=== PATIENT | female | born 1945 | race African-American/Black ===

== ENCOUNTER → 2016-07-18 | Outpatient (REF) | payer MEDICARE ==
[2016-07-18 09:28] LABS: MEAN CORPUSCULAR HGB CONC 31.9 g/dl (32.0-36.5); MEAN CORPUSCULAR VOLUME 84.8 fl (80.0-96.0); RED CELL DISTRIBUTION WIDTH 15.7 % (11.5-14.5); WHITE BLOOD COUNT 4.6 K/mm3 (4.0-10.0)
[2016-07-18 10:29] LABS: ALBUMIN 3.3 GM/DL (3.2-5.2); ALBUMIN/GLOBULIN RATIO 0.72 (1.00-1.93); ALKALINE PHOSPHATASE 97 U/L (45-117); ALT/SGPT 23 U/L (12-78); ANION GAP 8 MEQ/L (8-16); AST/SGOT 16 U/L (15-37); BILIRUBIN,TOTAL 0.4 MG/DL (0.2-1.0); BLOOD UREA NITROGEN 16 MG/DL (7-18); CALCIUM LEVEL 8.9 MG/DL (8.8-10.2); CARBON DIOXIDE LEVEL 29 MEQ/L (21-32); CHLORIDE LEVEL 105 MEQ/L (98-107); CHOLESTEROL LEVEL 145 MG/DL (<200); CREATININE FOR GFR 0.98 MG/DL (0.55-1.02); GLOMERULAR FILTRATION RATE > 60.0 (>39); GLUCOSE, FASTING 84 MG/DL (83-110); POTASSIUM SERUM 3.5 MEQ/L (3.5-5.1); SODIUM LEVEL 142 MEQ/L (136-145); TOTAL PROTEIN 7.9 GM/DL (6.4-8.2); TRIGLYCERIDES LEVEL 126 MG/DL (<150)
== END ==
LOC: SKLAB5 08:53
PROVIDERS: ATTEND Family Medicine
DX: I67.9 Cerebrovascular disease, unspecified (principal); D64.9 Anemia, unspecified; N28.9 Disorder of kidney and ureter, unspecified

== ENCOUNTER → 2016-08-15 | Outpatient (REF) | payer MEDICARE ==
[2016-08-15 08:58] LABS: ALBUMIN/GLOBULIN RATIO 0.7 (1.00-1.93); BILIRUBIN,TOTAL 0.4 MG/DL (0.2-1.0); CALCIUM LEVEL 8.9 MG/DL (8.8-10.2); CREATININE FOR GFR 1.15 MG/DL (0.55-1.02); GLOMERULAR FILTRATION RATE 59.8 (>39); POTASSIUM SERUM 3.5 MEQ/L (3.5-5.1); TOTAL PROTEIN 7.3 GM/DL (6.4-8.2)
== END ==
LOC: SKLAB5 08:31
PROVIDERS: ATTEND Family Medicine
DX: G20 Parkinson's disease (principal); N28.9 Disorder of kidney and ureter, unspecified

== ENCOUNTER → 2016-08-19 | Outpatient (REF) | payer MEDICARE ==
--- NOTE | 2016-08-19 11:12 | REP ---
SOFT-TISSUE NECK X-RAY: 08/19/2016. Clinical history, evaluate for airway obstruction. AP and lateral views are provided. The two lateral views both show some mild prevertebral swelling anterior to C5 and C6. There are anterior osteophytes from C3-4 through C5-6. The oropharynx, hypopharynx, larynx and subglottic trachea have normal caliber with slight displacement of the airway anteriorly by soft tissue swelling but no stenosis. Impression: 1. Some prevertebral swelling noted anterior to C5 and C6. The airway from the oropharynx through the subglottic trachea is grossly patent, however. Consider CT soft tissue neck with contrast. Signed by Marito Rhodes MD 08/19/2016 04:21 P
== END | disposition home or self-care (01) ==
LOC: SKLAB5 08:00
PROVIDERS: ATTEND Family Medicine
DX: M25.78 Osteophyte, vertebrae (principal); R22.1 Localized swelling, mass and lump, neck

== ENCOUNTER → 2016-08-22 | Outpatient (REF) | payer MEDICARE ==
[2016-08-22 08:35] LABS: MEAN CORPUSCULAR HEMOGLOBIN 27.4 pg (27.0-33.0); MEAN CORPUSCULAR HGB CONC 32.2 g/dl (32.0-36.5); MEAN CORPUSCULAR VOLUME 85.1 fl (80.0-96.0); RED CELL DISTRIBUTION WIDTH 15.3 % (11.5-14.5); WHITE BLOOD COUNT 3.7 K/mm3 (4.0-10.0)
[2016-08-22 08:53] LABS: ANION GAP 8 MEQ/L (8-16); BLOOD UREA NITROGEN 17 MG/DL (7-18); CARBON DIOXIDE LEVEL 30 MEQ/L (21-32); CHLORIDE LEVEL 105 MEQ/L (98-107); CREATININE FOR GFR 1.07 MG/DL (0.55-1.02); GLOMERULAR FILTRATION RATE > 60.0 (>39); GLUCOSE, FASTING 88 MG/DL (83-110); POTASSIUM SERUM 3.7 MEQ/L (3.5-5.1); SODIUM LEVEL 143 MEQ/L (136-145)
== END | disposition home or self-care (01) ==
LOC: SKLAB5 08:00
PROVIDERS: ATTEND Family Medicine
DX: I12.9 Hypertensive chronic kidney disease with stage 1 through stage 4 chronic kidney disease, or unspecified chronic kidney disease (principal); G20 Parkinson's disease; N18.2 Chronic kidney disease, stage 2 (mild)

== ENCOUNTER → 2016-09-12 | Outpatient (REF) | payer MEDICARE ==
[2016-09-12 10:05] LABS: ANION GAP 8 MEQ/L (8-16); BLOOD UREA NITROGEN 20 MG/DL (7-18); CALCIUM LEVEL 8.8 MG/DL (8.8-10.2); CARBON DIOXIDE LEVEL 27 MEQ/L (21-32); CHLORIDE LEVEL 105 MEQ/L (98-107); CREATININE FOR GFR 0.91 MG/DL (0.55-1.02); GLOMERULAR FILTRATION RATE > 60.0 (>39); GLUCOSE, FASTING 107 MG/DL (83-110); POTASSIUM SERUM 3.9 MEQ/L (3.5-5.1); SODIUM LEVEL 140 MEQ/L (136-145)
== END ==
LOC: SKLAB5 07:40
PROVIDERS: ATTEND Family Medicine
DX: I10 Essential (primary) hypertension (principal); G20 Parkinson's disease

== ENCOUNTER → 2016-10-15 | Outpatient (REF) | payer MEDICARE ==
[2016-10-15 09:06] LABS: ANION GAP 7 MEQ/L (8-16); BLOOD UREA NITROGEN 15 MG/DL (7-18); CALCIUM LEVEL 8.8 MG/DL (8.8-10.2); CARBON DIOXIDE LEVEL 29 MEQ/L (21-32); CHLORIDE LEVEL 106 MEQ/L (98-107); CREATININE FOR GFR 0.91 MG/DL (0.55-1.02); GLOMERULAR FILTRATION RATE > 60.0 (>39); GLUCOSE, FASTING 89 MG/DL (83-110); POTASSIUM SERUM 3.6 MEQ/L (3.5-5.1); SODIUM LEVEL 142 MEQ/L (136-145)
== END ==
LOC: SKLAB5 09:23
PROVIDERS: ATTEND Family Medicine
DX: G20 Parkinson's disease (principal)

== ENCOUNTER → 2016-11-14 | Outpatient (REF) | payer MEDICARE ==
[2016-11-14 10:27] LABS: ANION GAP 11 MEQ/L (8-16); BLOOD UREA NITROGEN 13 MG/DL (7-18); CALCIUM LEVEL 9.1 MG/DL (8.8-10.2); CARBON DIOXIDE LEVEL 26 MEQ/L (21-32); CHLORIDE LEVEL 106 MEQ/L (98-107); CREATININE FOR GFR 0.94 MG/DL (0.55-1.02); GLOMERULAR FILTRATION RATE > 60.0 (>39); GLUCOSE, FASTING 95 MG/DL (83-110); SODIUM LEVEL 143 MEQ/L (136-145)
== END ==
LOC: SKLAB5 07:16
PROVIDERS: ATTEND Family Medicine
DX: G20 Parkinson's disease (principal); N28.9 Disorder of kidney and ureter, unspecified

== ENCOUNTER → 2016-12-12 | Outpatient (REF) | payer MEDICARE ==
[2016-12-12 10:36] LABS: ANION GAP 7 MEQ/L (8-16); BLOOD UREA NITROGEN 16 MG/DL (7-18); CALCIUM LEVEL 8.7 MG/DL (8.8-10.2); CARBON DIOXIDE LEVEL 29 MEQ/L (21-32); CHLORIDE LEVEL 105 MEQ/L (98-107); CREATININE FOR GFR 1.03 MG/DL (0.55-1.02); GLOMERULAR FILTRATION RATE > 60.0 (>39); GLUCOSE, FASTING 108 MG/DL (83-110); POTASSIUM SERUM 3.5 MEQ/L (3.5-5.1); SODIUM LEVEL 141 MEQ/L (136-145)
== END ==
LOC: SKLAB5 07:32
PROVIDERS: ATTEND Family Medicine
DX: I10 Essential (primary) hypertension (principal); G20 Parkinson's disease

== ENCOUNTER → 2016-12-19 | Outpatient (REF) | payer MEDICARE | LOC: SKLAB5 07:53 | PROVIDERS: ATTEND Family Medicine | DX: Z12.11 Encounter for screening for malignant neoplasm of colon (principal); I10 Essential (primary) hypertension; Z79.899 Other long term (current) drug therapy ==

== ENCOUNTER → 2017-01-16 | Outpatient (REF) | payer MEDICARE ==
[2017-01-16 10:07] LABS: MEAN CORPUSCULAR HEMOGLOBIN 27.7 pg (27.0-33.0); MEAN CORPUSCULAR HGB CONC 32.4 g/dl (32.0-36.5); MEAN CORPUSCULAR VOLUME 85.6 fl (80.0-96.0); RED CELL DISTRIBUTION WIDTH 15.3 % (11.5-14.5); WHITE BLOOD COUNT 4.2 K/mm3 (4.0-10.0)
== END ==
LOC: SKLAB5 08:26
PROVIDERS: ATTEND Family Medicine
DX: N28.9 Disorder of kidney and ureter, unspecified (principal); E03.9 Hypothyroidism, unspecified; G20 Parkinson's disease

== ENCOUNTER → 2017-02-13 | Outpatient (REF) | payer MEDICARE ==
[2017-02-13 09:04] LABS: ANION GAP 10 MEQ/L (8-16); BLOOD UREA NITROGEN 16 MG/DL (7-18); CALCIUM LEVEL 9.1 MG/DL (8.8-10.2); CARBON DIOXIDE LEVEL 27 MEQ/L (21-32); CHLORIDE LEVEL 107 MEQ/L (98-107); CREATININE FOR GFR 0.87 MG/DL (0.55-1.02); GLOMERULAR FILTRATION RATE > 60.0 (>39); GLUCOSE, FASTING 75 MG/DL (83-110); POTASSIUM SERUM 3.7 MEQ/L (3.5-5.1); SODIUM LEVEL 144 MEQ/L (136-145)
== END ==
LOC: SKLAB5 08:49
PROVIDERS: ATTEND Family Medicine
DX: G20 Parkinson's disease (principal); I10 Essential (primary) hypertension; N28.9 Disorder of kidney and ureter, unspecified

== ENCOUNTER → 2017-04-17 | Outpatient (REF) | payer MEDICARE | LOC: SKLAB5 08:47 | PROVIDERS: ATTEND Family Medicine | DX: E03.9 Hypothyroidism, unspecified (principal) ==

== ENCOUNTER → 2017-07-17 | Outpatient (REF) | payer MEDICARE ==
[2017-07-17 09:06] LABS: HEMATOCRIT 39.3 % (36.0-47.0); HEMOGLOBIN 12.6 g/dl (12.0-16.0); MEAN CORPUSCULAR HEMOGLOBIN 27.5 pg (27.0-33.0); MEAN CORPUSCULAR HGB CONC 32.1 g/dl (32.0-36.5); MEAN CORPUSCULAR VOLUME 85.8 fl (80.0-96.0); PLATELET COUNT, AUTOMATED 212 10^3/uL (150-450); RED BLOOD COUNT 4.58 10^6/uL (4.00-5.40); RED CELL DISTRIBUTION WIDTH 14.8 % (11.5-14.5); WHITE BLOOD COUNT 4.7 10^3/uL (4.0-10.0)
== END ==
LOC: SKLAB5 07:55
DX: D64.9 Anemia, unspecified (principal); E03.9 Hypothyroidism, unspecified
CPT/HCPCS: 84443

== ENCOUNTER → 2017-08-14 | Outpatient (REF) | payer MEDICARE ==
[2017-08-14 09:03] LABS: ANION GAP 8 MEQ/L (8-16); BLOOD UREA NITROGEN 18 MG/DL (7-18); CALCIUM LEVEL 8.6 MG/DL (8.8-10.2); CARBON DIOXIDE LEVEL 27 MEQ/L (21-32); CHLORIDE LEVEL 109 MEQ/L (98-107); CREATININE FOR GFR 0.86 MG/DL (0.55-1.30); GLOMERULAR FILTRATION RATE > 60.0 (>39); GLUCOSE, FASTING 80 MG/DL (70-100); POTASSIUM SERUM 3.7 MEQ/L (3.5-5.1); SODIUM LEVEL 144 MEQ/L (136-145)
== END ==
LOC: SKLAB5 07:51
DX: N18.9 Chronic kidney disease, unspecified (principal)
CPT/HCPCS: 36415

== ENCOUNTER → 2017-10-16 | Outpatient (REF) | payer MEDICARE | LOC: SKLAB5 07:38 | DX: E03.9 Hypothyroidism, unspecified (principal) | CPT/HCPCS: 84443 ==

== ENCOUNTER → 2017-11-13 | Outpatient (REF) | payer MEDICARE ==
[2017-11-13 08:11] LABS: ANION GAP 8 MEQ/L (8-16); BLOOD UREA NITROGEN 19 MG/DL (7-18); CALCIUM LEVEL 8.6 MG/DL (8.8-10.2); CARBON DIOXIDE LEVEL 24 MEQ/L (21-32); CHLORIDE LEVEL 110 MEQ/L (98-107); CREATININE FOR GFR 0.92 MG/DL (0.55-1.30); GLOMERULAR FILTRATION RATE > 60.0 (>39); GLUCOSE, FASTING 78 MG/DL (70-100); POTASSIUM SERUM 3.9 MEQ/L (3.5-5.1); SODIUM LEVEL 142 MEQ/L (136-145)
== END ==
LOC: SKLAB5 10:30
DX: G20 Parkinson's disease (principal); N18.9 Chronic kidney disease, unspecified
CPT/HCPCS: 80048

== ENCOUNTER → 2018-01-15 | Outpatient (REF) | payer MEDICARE ==
[2018-01-15 13:57] LABS: HEMATOCRIT 38.7 % (36.0-47.0); MEAN CORPUSCULAR HEMOGLOBIN 28.2 pg (27.0-33.0); MEAN CORPUSCULAR HGB CONC 33.6 g/dl (32.0-36.5); MEAN CORPUSCULAR VOLUME 83.9 fl (80.0-96.0); PLATELET COUNT, AUTOMATED 216 10^3/uL (150-450); RED BLOOD COUNT 4.61 10^6/uL (4.00-5.40); RED CELL DISTRIBUTION WIDTH 14.9 % (11.5-14.5); WHITE BLOOD COUNT 4.6 10^3/uL (4.0-10.0)
== END ==
LOC: SKLAB5 07:25
DX: E03.9 Hypothyroidism, unspecified (principal)
CPT/HCPCS: 84443

== ENCOUNTER → 2018-02-12 | Outpatient (REF) | payer MEDICARE ==
[2018-02-12 09:36] LABS: ANION GAP 7 MEQ/L (8-16); BLOOD UREA NITROGEN 18 MG/DL (7-18); CALCIUM LEVEL 8.7 MG/DL (8.8-10.2); CARBON DIOXIDE LEVEL 27 MEQ/L (21-32); CHLORIDE LEVEL 110 MEQ/L (98-107); CREATININE FOR GFR 0.87 MG/DL (0.55-1.30); GLOMERULAR FILTRATION RATE > 60.0 (>39); GLUCOSE, FASTING 69 MG/DL (70-100); POTASSIUM SERUM 4.2 MEQ/L (3.5-5.1); SODIUM LEVEL 144 MEQ/L (136-145)
== END ==
LOC: SKLAB5 09:33
DX: N18.9 Chronic kidney disease, unspecified (principal); G20 Parkinson's disease
CPT/HCPCS: 36415

== ENCOUNTER → 2018-04-16 | Outpatient (REF) | payer MEDICARE | LOC: SKLAB5 08:15 | DX: E03.9 Hypothyroidism, unspecified (principal) | CPT/HCPCS: 84443 ==

== ENCOUNTER → 2018-05-14 | Outpatient (REF) | payer MEDICARE ==
[2018-05-14 08:46] LABS: ANION GAP 7 MEQ/L (8-16); BLOOD UREA NITROGEN 19 MG/DL (7-18); CALCIUM LEVEL 8.7 MG/DL (8.8-10.2); CARBON DIOXIDE LEVEL 28 MEQ/L (21-32); CHLORIDE LEVEL 108 MEQ/L (98-107); CREATININE FOR GFR 0.83 MG/DL (0.55-1.30); GLOMERULAR FILTRATION RATE > 60.0 (>39); GLUCOSE, FASTING 77 MG/DL (70-100); POTASSIUM SERUM 3.8 MEQ/L (3.5-5.1); SODIUM LEVEL 143 MEQ/L (136-145)
== END ==
LOC: SKLAB5 07:45
DX: N18.9 Chronic kidney disease, unspecified (principal); G20 Parkinson's disease
CPT/HCPCS: 80048

== ENCOUNTER → 2018-07-16 | Outpatient (REF) | payer MEDICARE ==
[2018-07-16 08:30] LABS: HEMATOCRIT 38.7 % (36.0-47.0); HEMOGLOBIN 12.5 g/dl (12.0-15.5); MEAN CORPUSCULAR HEMOGLOBIN 27.8 pg (27.0-33.0); MEAN CORPUSCULAR HGB CONC 32.3 g/dl (32.0-36.5); PLATELET COUNT, AUTOMATED 174 10^3/uL (150-450); WHITE BLOOD COUNT 4.6 10^3/uL (4.0-10.0)
== END ==
LOC: SKLAB5 08:07
PROVIDERS: ATTEND Family Medicine
DX: E03.9 Hypothyroidism, unspecified (principal); N18.9 Chronic kidney disease, unspecified

== ENCOUNTER → 2018-07-29 | Outpatient (REF) | payer MEDICARE ==
[2018-07-29 13:00] LABS: HEMATOCRIT 43.2 % (36.0-47.0); HEMOGLOBIN 13.3 g/dl (12.0-15.5); MEAN CORPUSCULAR HEMOGLOBIN 27.3 pg (27.0-33.0); MEAN CORPUSCULAR HGB CONC 30.8 g/dl (32.0-36.5); MEAN CORPUSCULAR VOLUME 88.5 fl (80.0-96.0); PLATELET COUNT, AUTOMATED 388 10^3/uL (150-450); RED BLOOD COUNT 4.88 10^6/uL (4.00-5.40); WHITE BLOOD COUNT 11.9 10^3/uL (4.0-10.0)
[2018-07-29 13:16] LABS: INFLUENZA A AMPLIFICATION NEGATIVE (NEGATIVE); INFLUENZA B AMPLIFICATION NEGATIVE (NEGATIVE)
[2018-07-29 13:56] LABS: ALBUMIN 2.7 GM/DL (3.2-5.2); BILIRUBIN,TOTAL 0.8 MG/DL (0.2-1.0); CALCIUM LEVEL 9.4 MG/DL (8.8-10.2); CREATININE FOR GFR 1.19 MG/DL (0.55-1.30); GLOMERULAR FILTRATION RATE 57.2 (>39); POTASSIUM SERUM 3.7 MEQ/L (3.5-5.1); TOTAL PROTEIN 8.1 GM/DL (6.4-8.2)
== END ==
LOC: SKLAB5 11:56
PROVIDERS: ATTEND Family Medicine
DX: R53.83 Other fatigue (principal)

== ENCOUNTER → 2018-07-30 | Outpatient (REF) | payer MEDICARE ==
[2018-07-30 09:12] LABS: BLOOD UREA NITROGEN 50 MG/DL (7-18); CALCIUM LEVEL 8.9 MG/DL (8.8-10.2); CARBON DIOXIDE LEVEL 30 MEQ/L (21-32); CHLORIDE LEVEL 122 MEQ/L (98-107); CREATININE FOR GFR 1.07 MG/DL (0.55-1.30); GLOMERULAR FILTRATION RATE > 60.0 (>39); GLUCOSE, FASTING 171 MG/DL (70-100); POTASSIUM SERUM 3.5 MEQ/L (3.5-5.1); SODIUM LEVEL 159 MEQ/L (136-145)
== END ==
LOC: SKLAB5 09:29
PROVIDERS: ATTEND Family Medicine
DX: E86.0 Dehydration (principal)

== ENCOUNTER → 2018-07-31 | Outpatient (REF) | payer MEDICARE ==
[2018-07-31 07:40] LABS: HEMATOCRIT 36.8 % (36.0-47.0); MEAN CORPUSCULAR HEMOGLOBIN 27.4 pg (27.0-33.0); MEAN CORPUSCULAR HGB CONC 30.7 g/dl (32.0-36.5); MEAN CORPUSCULAR VOLUME 89.1 fl (80.0-96.0); PLATELET COUNT, AUTOMATED 285 10^3/uL (150-450); RED BLOOD COUNT 4.13 10^6/uL (4.00-5.40); WHITE BLOOD COUNT 10.1 10^3/uL (4.0-10.0)
[2018-07-31 07:59] LABS: HEMOGLOBIN 11.3 g/dl (12.0-15.5)
[2018-07-31 08:52] LABS: BLOOD UREA NITROGEN 41 MG/DL (7-18); CALCIUM LEVEL 8.8 MG/DL (8.8-10.2); CARBON DIOXIDE LEVEL 29 MEQ/L (21-32); CHLORIDE LEVEL 116 MEQ/L (98-107); CREATININE FOR GFR 0.98 MG/DL (0.55-1.30); GLOMERULAR FILTRATION RATE > 60.0 (>39); GLUCOSE, FASTING 179 MG/DL (70-100); POTASSIUM SERUM 3.3 MEQ/L (3.5-5.1); SODIUM LEVEL 152 MEQ/L (136-145)
== END ==
LOC: SKLAB5 08:36
PROVIDERS: ATTEND Family Medicine
DX: E86.0 Dehydration (principal)

== ENCOUNTER → 2018-08-01 | Outpatient (REF) | payer MEDICARE ==
[2018-08-01 07:39] LABS: BLOOD UREA NITROGEN 30 MG/DL (7-18); CALCIUM LEVEL 7.8 MG/DL (8.8-10.2); CARBON DIOXIDE LEVEL 30 MEQ/L (21-32); CHLORIDE LEVEL 110 MEQ/L (98-107); CREATININE FOR GFR 0.79 MG/DL (0.55-1.30); GLOMERULAR FILTRATION RATE > 60.0 (>39); GLUCOSE, FASTING 153 MG/DL (70-100); POTASSIUM SERUM 3.4 MEQ/L (3.5-5.1); SODIUM LEVEL 146 MEQ/L (136-145)
== END ==
LOC: SKLAB5 07:38
PROVIDERS: ATTEND Family Medicine
DX: E86.0 Dehydration (principal)

== ENCOUNTER → 2018-08-04 | Outpatient (REF) | payer MEDICARE ==
[2018-08-04 07:38] LABS: HEMATOCRIT 30.5 % (36.0-47.0); HEMOGLOBIN 9.7 g/dl (12.0-15.5); MEAN CORPUSCULAR HEMOGLOBIN 27.5 pg (27.0-33.0); MEAN CORPUSCULAR HGB CONC 31.8 g/dl (32.0-36.5); MEAN CORPUSCULAR VOLUME 86.4 fl (80.0-96.0); PLATELET COUNT, AUTOMATED 264 10^3/uL (150-450); RED BLOOD COUNT 3.53 10^6/uL (4.00-5.40); WHITE BLOOD COUNT 5.8 10^3/uL (4.0-10.0)
[2018-08-04 07:55] LABS: ALBUMIN 1.8 GM/DL (3.2-5.2); ALT/SGPT 62 U/L (12-78); BILIRUBIN,TOTAL 0.5 MG/DL (0.2-1.0); BLOOD UREA NITROGEN 15 MG/DL (7-18); CALCIUM LEVEL 7.6 MG/DL (8.8-10.2); CARBON DIOXIDE LEVEL 29 MEQ/L (21-32); CHLORIDE LEVEL 103 MEQ/L (98-107); CREATININE FOR GFR 0.74 MG/DL (0.55-1.30); GLOMERULAR FILTRATION RATE > 60.0 (>39); GLUCOSE, FASTING 133 MG/DL (70-100); POTASSIUM SERUM 3.7 MEQ/L (3.5-5.1); SODIUM LEVEL 139 MEQ/L (136-145); TOTAL PROTEIN 5.9 GM/DL (6.4-8.2)
== END ==
LOC: SKLAB5 07:26
PROVIDERS: ATTEND Family Medicine
DX: E86.0 Dehydration (principal)

== ENCOUNTER → 2018-08-10 | Outpatient (REF) | payer MEDICARE ==
[~2018-08-10] MED LIST: ACET160S3 GT; ACET1TAB55 PO; ALTA1CAP PEG; ASPI1TAB PO; ASPI1TAB15 PO; CHIL81CH2 PEG; CRES10TA32 PEG; DULC10SU2 PR; ENSULIQ64 PO; FLEEENE4 PR; GUAI1SYP8 PO; LEVO125T4 PEG; METO10ELUD PEG; METO10VL IV; MILK120011 PO; MIRA3350 PO; MIRT30TA3 PO; REFR0.5D8 OU; SENN8.6T7 PO; SYNT125T PO; TYLE325T5 PO
[2018-08-10 08:03] LABS: ALBUMIN 2.1 GM/DL (3.2-5.2); ALT/SGPT 26 U/L (12-78); BILIRUBIN,TOTAL 0.4 MG/DL (0.2-1.0); BLOOD UREA NITROGEN 22 MG/DL (7-18); CALCIUM LEVEL 8.5 MG/DL (8.8-10.2); CARBON DIOXIDE LEVEL 26 MEQ/L (21-32); CHLORIDE LEVEL 110 MEQ/L (98-107); CREATININE FOR GFR 0.68 MG/DL (0.55-1.30); GLOMERULAR FILTRATION RATE > 60.0 (>39); GLUCOSE, FASTING 81 MG/DL (70-100); POTASSIUM SERUM 4.1 MEQ/L (3.5-5.1); SODIUM LEVEL 146 MEQ/L (136-145); TOTAL PROTEIN 6.9 GM/DL (6.4-8.2)
== END ==
LOC: EDBD → SKLAB5 08:00
PROVIDERS: ATTEND Family Medicine
DX: E87.0 Hyperosmolality and hypernatremia (principal)

== ENCOUNTER 2018-08-18 19:11 | Inpatient (IN) | payer MEDICARE ==
[~2018-08-18] VITALS: Ht 165.1 cm; Wt 65.3 kg
[2018-08-18] MEDS ORDERED: NS 1,000 ML IV ONE (19:30)
[2018-08-18 20:21] LABS: VENOUS BASE EXCESS -2.2 (-2.0-2.0); VENOUS O2 SATURATION 95.6 % (60.0-80.0); VENOUS PARTIAL PRESSURE CO2 31.5 mmHg (38.0-50.0); VENOUS PARTIAL PRESSURE O2 81.8 mmHg (30.0-50.0); VENOUS PH 7.441 UNITS (7.330-7.430); VENOUS STANDARD HCO3 22.6 MEQ/L; VENOUS TOTAL CO2 21.9 MEQ/L (24.0-28.0)
[2018-08-18 20:24] LABS: BASO % 0.2 % (0.0-1.0); EOS % 0.2 % (0.0-3.0); HEMATOCRIT 42.5 % (36.0-47.0); HEMOGLOBIN 12.3 g/dl (12.0-15.5); LYMPH # 2.6 10^3/uL (1.5-4.5); LYMPH % 20.6 % (24.0-44.0); MEAN CORPUSCULAR HEMOGLOBIN 26.5 pg (27.0-33.0); MEAN CORPUSCULAR HGB CONC 28.9 g/dl (32.0-36.5); MEAN CORPUSCULAR VOLUME 91.6 fl (80.0-96.0); MONO # 0.8 10^3/uL (0.0-0.8); MONO % 6.1 % (0.0-5.0); NEUTROPHILS # 9.3 10^3/uL (1.8-7.7); NEUTROPHILS % 72.4 % (36.0-66.0); PLATELET COUNT, AUTOMATED 328 10^3/uL (150-450); RED BLOOD COUNT 4.64 10^6/uL (4.00-5.40); WHITE BLOOD COUNT 12.8 10^3/uL (4.0-10.0)
--- NOTE | 2018-08-18 20:57 | REPVR ---
EXAM: CT Head Without Contrast EXAM DATE/TIME: 08/18/2018 8:39 PM CLINICAL HISTORY: 73 years old, female; Signs and symptoms; Altered mental status/memory loss TECHNIQUE: Axial computed tomography images of the head/brain without contrast. All CT scans at this facility use at least one of these dose optimization techniques: automated exposure control; mA and/or kV adjustment per patient size (includes targeted exams where dose is matched to clinical indication); or iterative reconstruction. COMPARISON: No relevant prior studies available. FINDINGS: Brain: There is mild to moderate age related parenchymal volume loss. White matter changes are demonstrated in the subcortical, centrum semiovale and periventricular white matter consistent with small vessel white matter angiopathic gliosis. Ventricles: Normal. No ventriculomegaly. Bones/joints: Unremarkable. No acute fracture. Sinuses: Visualized sinuses are unremarkable. No acute sinusitis. Mastoid air cells: Visualized mastoid air cells are unremarkable. No mastoid effusion. Soft tissues: Unremarkable. Vasculature: Calcified intracranial carotid arteries. IMPRESSION: There is mild to moderate age related parenchymal volume loss. White matter changes are demonstrated in the subcortical, centrum semiovale and periventricular white matter consistent with small vessel white matter angiopathic gliosis. No acute findings. Electronically signed by: Arron Herman On 08/18/2018 20:56:43 PM
[2018-08-18 22:30] LABS: ALBUMIN 1.8 GM/DL (3.2-5.2); ALT/SGPT 24 U/L (12-78); BILIRUBIN,DIRECT 0.3 MG/DL (0.0-0.2); BILIRUBIN,TOTAL 0.7 MG/DL (0.2-1.0); BLOOD UREA NITROGEN 64 MG/DL (7-18); CARBON DIOXIDE LEVEL 25 MEQ/L (21-32); CHLORIDE LEVEL 132 MEQ/L (98-107); CPK CREATINE PHOSPHOKINASE 78 U/L (26-192); CREATININE FOR GFR 1.08 MG/DL (0.55-1.30); GLOMERULAR FILTRATION RATE > 60.0 (>39); GLUCOSE, FASTING 123 MG/DL (70-100); MB/CK RELATIVE INDEX 2.05 (< OR =4); POTASSIUM SERUM 3.3 MEQ/L (3.5-5.1); SODIUM LEVEL 167 MEQ/L (136-145); THYROID STIMULATING HORMONE 0.981 uIU/ML (0.358-3.740); TOTAL PROTEIN 6.7 GM/DL (6.4-8.2); TROPONIN I < 0.02 NG/ML (< 0.10)
[2018-08-18] MEDS ORDERED: D5W 1,000 ML IV SCH (22:45)
[2018-08-18] MEDS ORDERED: ASPI1TAB PO (23:41)
[2018-08-18] MEDS ORDERED: ENSULIQ64 PO (23:41)
[2018-08-18] MEDS ORDERED: MIRT30TA3 PO (23:41)
[2018-08-18] MEDS ORDERED: SYNT125T PO (23:54)
[2018-08-18] MEDS ORDERED: ACET1TAB55 PO (23:54)
[2018-08-18] MEDS ORDERED: MILK120011 PO (23:54)
[2018-08-18] MEDS ORDERED: SENN8.6T7 PO (23:54)
[2018-08-18] MEDS ORDERED: MIRA3350 PO (23:54)
[2018-08-18] MEDS ORDERED: REFR0.5D8 OU (23:54)
[2018-08-18] MEDS ORDERED: TYLE325T5 PO (23:54)
[2018-08-18] MEDS ORDERED: GUAI1SYP8 PO (23:54)
[2018-08-18] MEDS ORDERED: DULC10SU2 PR (23:54)
[2018-08-18] MEDS ORDERED: ASPI1TAB15 PO (23:54)
[2018-08-18] MEDS ORDERED: FLEEENE4 PR (23:54)
[2018-08-19 02:22] VITALS: BP 144/86
--- NOTE | 2018-08-19 03:03 | HPEPDOC ---
[facility] Medical History & Physical Date of Admission Aug 18, 2018 Primary Care Physician: A Other Provider Dictating/admitting: Elaine Eason M.D. Attending Physician: Thor Bolden M.D. History and Physical CHIEF COMPLAINT: Change in mental status HISTORY OF PRESENT ILLNESS: Patient is a 73-year-old woman with medical history significant for episodes of hypernatremia, CVA with residual left hemiparesis and cognitive disorders, depression, hypertension, hypothyroidism, hyperlipidemia. [facility] History is as recounted by ER physician. She is a patient of [facility] and had been noted to have progressive poor appetite and weight loss. However, she appeared more lethargic than usual today and was brought to the emergency room. At time of interview. No family members were available. She was worked up with a CT brain which was consistent with age related findings. No acute finding. Her lab consistent with hyponatremia with a sodium of 167. Patient was started on D5 water, hospitalist was called in for further evaluation and to admit patient for continued care. PAST MEDICAL HISTORY: PAST SURGICAL HISTORY: Could not obtain. Patient poor historian. SOCIAL HISTORY: Could not obtain FAMILY HISTORY: Could not obtain ALLERGIES: Please see below. REVIEW OF SYSTEMS: Unobtainable HOME MEDICATIONS: Please see below. PHYSICAL EXAMINATION: VITAL SIGNS: Temperature 96.8, pulse 86, respiratory rate 17, blood pressure 144/86, pulse oximetry 100 % on room air. GENERAL APPEARANCE: Elderly woman, unresponsive in bed with occasional eye opening, not in any apparent distress. She is not pale, anicteric and afebrile HEENT: Atraumatic. Neck: Supple. LUNGS: Clear to auscultation bilaterally. CARDIOVASCULAR: S1 and 2 heard, no murmurs, rubs or gallops. ABDOMEN: Obese, soft, not tender, not distended. Bowel sounds normoactive. MUSCULOSKELETAL: Apparently within normal limits. EXTREMITIES: No pedal edema, 2+ bilateral pedal pulses noted. NEUROLOGICAL: unresponsive in bed with occasional eye opening. Does not follow commands. PSYCHIATRIC: Not evaluated LABORATORY DATA: See below. IMAGING: Chest x-ray: No acute cardiopulmonary process CT brain: There is mild to moderate age-related parenchymal volume loss. White matter changes are demonstrated in the subcortical centrum semiovale and periventricular white matter consistent with small vessel white matter angiopathic gliosis. No acute findings. MICROBIOLOGY: Please see below. ASSESSMENT: 73-year-old woman with above-mentioned comorbid history with progressively worsening lethargy. Exam reveals an unresponsive patient. Labs significant for elevated sodium 167 mg per DL. DIAGNOSES: 1. Metabolic encephalopathy, likely secondary to hyponatremia. 2. Hyponatremia. . PLAN: 1. I will admit patient to the PCU under care of Dr. Thor Bolden. 2. Continue IV fluid to D5 water. Follow chemistry in the morning. 3. Day team should consider PEG tube/J-tube for further nutritional needs 4. Patient is nothing by mouth for now until she can tolerate by mouth. 5. DVT prophylaxis, TEDs and sequentials. 6. As soon as patient is able to tolerate by mouth she may restart all resume outpatient medications. 7. GI prophylaxis. Pantoprazole IV. 8. Further management will be per patient's clinical course. Vital Signs Vital Signs Date Time Temp Pulse Resp B/P (MAP) Pulse Ox O2 Delivery O2 Flow Rate FiO2 08/18/18 21:56 98.1 87 16 99 Room Air 08/18/18 21:26 144/97 (113) Laboratory Data Labs 24H Laboratory Tests 2 08/18/18 20:13: Immature Granulocyte % (Auto) 0.5, White Blood Count 12.8H, Red Blood Count 4.64, Hemoglobin 12.3, Hematocrit 42.5, Mean Corpuscular Volume 91.6, Mean Corpuscular Hemoglobin 26.5L, Mean Corpuscular Hemoglobin Concent 28.9L, Red Cell Distribution Width 17.8H, Platelet Count 328, Neutrophils (%) (Auto) 72.4H, Lymphocytes (%) (Auto) 20.6L, Monocytes (%) (Auto) 6.1H, Eosinophils (%) (Auto) 0.2, Basophils (%) (Auto) 0.2, Neutrophils # (Auto) 9.3H, Lymphocytes # (Auto) 2.6, Monocytes # (Auto) 0.8, Eosinophils # (Auto) 0.0, Basophils # (Auto) 0.0, Nucleated Red Blood Cells % (auto) 0.5H, Urine Color RINKU, Urine Appearance HAZY, Urine pH 5.0, Urine Specific [place] 1.030, Urine Protein 2+H, Urine Glucose (UA) NEGATIVE, Urine Ketones TRACEH, Urine Blood NEGATIVE, Urine Nitrite NEGATIVE, Urine Bilirubin 1+H, Urine Urobilinogen 4.0H, Urine Leukocyte Esterase NEGATIVE, Urine WBC (Auto) 1, Urine RBC (Auto) 1, Urine Hyaline Casts (Auto) 0, Urine Bacteria (Auto) NEGATIVE, Urine Squamous Epithelial Cells 0, Urine Mucus (Auto) SMALL, Urine Sperm (Auto) , Blood Gas Bicarbonate Standard 22.6, Venous Blood pH 7.441H, Venous Blood Partial Pressure CO2 31.5L, Venous Blood Partial Pressure O2 81.8H, Venous Blood Total Carbon Dioxide 21.9L, Venous Blood HCO3 21.0L, Venous Blood Oxygen Saturation 95.6H, Venous Blood Base Excess -2.2L, Lactic Acid Level 1.7 08/18/18 21:27: Anion Gap 10, Glomerular Filtration Rate > 60.0, Calcium Level 8.0L, Aspartate Amino Transf (AST/SGOT) 25, Alanine Aminotransferase (ALT/SGPT) 24, Alkaline Phosphatase 118H, Total Bilirubin 0.7, Direct Bilirubin 0.3H, Ammonia 13, Total Creatine Kinase 78, Creatine Kinase MB 2.0, Creatine Kinase MB Relative Index 2.05, Troponin I < 0.02, Total Protein 6.7, Albumin 1.8L, Albumin/Globulin Ratio 0.37L, Thyroid Stimulating Hormone (TSH) 0.981 CBC/BMP Laboratory Tests 08/18/18 20:13 Red Blood Count 4.64, Mean Corpuscular Volume 91.6, Mean Corpuscular Hemoglobin 26.5 L, Mean Corpuscular Hemoglobin Concent 28.9 L, Red Cell Distribution Width 17.8 H, Neutrophils (%) (Auto) 72.4 H, Lymphocytes (%) (Auto) 20.6 L, Monocytes (%) (Auto) 6.1 H, Eosinophils (%) (Auto) 0.2, Basophils (%) (Auto) 0.2, Neutrophils # (Auto) 9.3 H, Lymphocytes # (Auto) 2.6, Monocytes # (Auto) 0.8, Eosinophils # (Auto) 0.0, Basophils # (Auto) 0.0 08/18/18 21:27 Microbiology Microbiology 08/18/18 Blood Culture, Received Pending 08/18/18 Blood Culture, Received Pending 08/18/18 Blood Culture, Received Pending Home Medications Scheduled (Ensure Enlive) 1 Liq Liq, 1 LIQ PO TID TAKES AT 0800, 1300 AND 1700 Acetaminophen (Acetaminophen) 325 Mg Tab, 650 MG PO TID TAKES AT 0600, 1200 AND 1700 Aspirin (Aspirin) 81 Mg Tab, 81 MG PO BID TAKES AT 0830 AND 1700 Carboxymethylcellulose Sodium (Refresh Tears) 0.5 % Tigre, 1 DROP OU QHS Docusate Sod/Senna (Senna S 8.6-50 mg) 1 Tab Tab, 1 TAB PO DAILY Levothyroxine Sodium (Synthroid) 125 Mcg Tab, 125 MCG PO DAILY Mirtazapine (Mirtazapine) 30 Mg Tab, 30 MG PO QPM TAKES AT 1700 Polyethylene Glycol (Miralax) 1 Pow Pow, 17 GM PO Q2D Scheduled PRN (Guaifenesin/Dextromethorp 10-100 mg/5Ml) 1 Syp Syp, 10 ML PO Q4H PRN for COUGH Acetaminophen (Tylenol) 325 Mg Tab, 650 MG PO Q4H PRN for PAIN / FEVER Bisacodyl (Dulcolax) 10 Mg Sup, 10 MG [place] DAILY PRN for CONSTIPATION Milk Of Magnesia (Milk of Magnesia) 1,200 Mg/15 Ml Richelle, 30 ML PO DAILY PRN for CONSTIPATION Sodium Phosphate/Biphosphate (Fleet Enema 7-19 gm/118Ml) 1 Jackie Jackie, 1 EA [place] DAILY PRN for CONSTIPATION Allergies Coded Allergies: No Known Drug Allergy (Verified Allergy, Unknown, 10/14/12) ELAINE EASON MD Aug 18, 2018 23:25
[2018-08-19 04:00] VITALS: BP 148/86
[2018-08-19 07:28] LABS: BASO % 0.2 % (0.0-1.0); EOS # 0.1 10^3/uL (0.0-0.50); EOS % 0.5 % (0.0-3.0); HEMATOCRIT 36.2 % (36.0-47.0); HEMOGLOBIN 10.9 g/dl (12.0-15.5); LYMPH # 2.2 10^3/uL (1.5-4.5); LYMPH % 21.6 % (24.0-44.0); MEAN CORPUSCULAR HEMOGLOBIN 26.8 pg (27.0-33.0); MEAN CORPUSCULAR HGB CONC 30.1 g/dl (32.0-36.5); MEAN CORPUSCULAR VOLUME 88.9 fl (80.0-96.0); MONO # 0.6 10^3/uL (0.0-0.8); MONO % 5.5 % (0.0-5.0); NEUTROPHILS # 7.3 10^3/uL (1.8-7.7); NEUTROPHILS % 71.7 % (36.0-66.0); PLATELET COUNT, AUTOMATED 269 10^3/uL (150-450); RED BLOOD COUNT 4.07 10^6/uL (4.00-5.40); WHITE BLOOD COUNT 10.1 10^3/uL (4.0-10.0)
[2018-08-19 07:59] LABS: BLOOD UREA NITROGEN 59 MG/DL (7-18); CARBON DIOXIDE LEVEL 27 MEQ/L (21-32); CHLORIDE LEVEL 128 MEQ/L (98-107); CREATININE FOR GFR 1.01 MG/DL (0.55-1.30); GLOMERULAR FILTRATION RATE > 60.0 (>39); GLUCOSE, FASTING 179 MG/DL (70-100); POTASSIUM SERUM 2.8 MEQ/L (3.5-5.1); SODIUM LEVEL 162 MEQ/L (136-145)
[2018-08-19] MEDS ORDERED: KCL 10MEQ/100ML SWI (KRUN) 10 MEQ in APPROPRIATE DILUENT 1 EA IV SCH (08:15)
--- NOTE | 2018-08-19 08:25 | REP ---
Chest one-view HISTORY: Altered mental status Comparison: 11/20/2013 There is elevation of the right hemidiaphragm. The lungs are clear. The heart is normal in size. The pulmonary vasculature is normal in appearance. Impression: No acute disease. Electronically Signed by Sabino Good MD 08/19/2018 08:17 A
--- NOTE | 2018-08-19 08:28 | IPNPDOC ---
Subjective Date Seen The patient was seen on 08/19/18. Subjective Chief Complaint/HPI Patient remains unresponsive to sternal rub. Breathing comfortably Constitutional: Denies: Chills, Fever Pulmonary: Denies: Dyspnea, Cough Gastrointestinal: Denies: Nausea, Vomiting, Diarrhea Objective Physical Examination General Exam: Positive: No Acute Distress, Other (not responsive to sternal rub); Negative: Alert Chest Exam: Positive: Clear to auscultation; Negative: Rales, Rhonchi, Wheezing Heart Exam: Positive: Rate Normal, Regular Rhythm Abdomen Exam: Positive: Normal bowel sounds, Soft; Negative: Tenderness Extremity Exam: Negative: Edema Assessment /Plan Problems (1) Hypernatremia Status: Acute Response to Treatment: Improving Problem Text: continue D5W at 80 cc/hour. Monitor Na later today Replace potassium as well (2) HTN (hypertension) Status: Acute Problem Text: BP elevated but a little better this am - she is not normally on antihypertensives - patient unable to take po meds currently unresponsive - Could place NTG paste or give IV labetalol if needed. (3) Hemiparesis and other late effects of cerebrovascular accident Status: Chronic Problem Text: CT without acute findings. ASA on hold while NPO (4) Hypothyroidism Status: Chronic Response to Treatment: Stable Problem Text: Not taking po currently - restart once more alert (5) Hyperlipidemia (6) Metabolic encephalopathy Status: Acute Plan/VTE VTE Prophylaxis Ordered?: Yes (Start SQ heparin) VS, I&O, 24H, Fishbone Vital Signs/I&O Vital Signs Date Time Temp Pulse Resp B/P (MAP) Pulse Ox O2 Delivery O2 Flow Rate FiO2 08/19/18 04:00 97.3 85 19 148/86 (106) 98 08/19/18 01:11 Room Air I&O- Last 24 Hours up to 6 AM 08/19/18 06:00 Intake Total 540 ml Balance 540 ml Laboratory Data 24H LABS Laboratory Tests 2 08/18/18 20:13: Immature Granulocyte % (Auto) 0.5, White Blood Count 12.8H, Red Blood Count 4.64, Hemoglobin 12.3, Hematocrit 42.5, Mean Corpuscular Volume 91.6, Mean Corpuscular Hemoglobin 26.5L, Mean Corpuscular Hemoglobin Concent 28.9L, Red Cell Distribution Width 17.8H, Platelet Count 328, Neutrophils (%) (Auto) 72.4H, Lymphocytes (%) (Auto) 20.6L, Monocytes (%) (Auto) 6.1H, Eosinophils (%) (Auto) 0.2, Basophils (%) (Auto) 0.2, Neutrophils # (Auto) 9.3H, Lymphocytes # (Auto) 2.6, Monocytes # (Auto) 0.8, Eosinophils # (Auto) 0.0, Basophils # (Auto) 0.0, Nucleated Red Blood Cells % (auto) 0.5H, Urine Color RINKU, Urine Appearance HAZY, Urine pH 5.0, Urine Specific [place] 1.030, Urine Protein 2+H, Urine Glucose (UA) NEGATIVE, Urine Ketones TRACEH, Urine Blood NEGATIVE, Urine Nitrite NEGATIVE, Urine Bilirubin 1+H, Urine Urobilinogen 4.0H, Urine Leukocyte Esterase NEGATIVE, Urine WBC (Auto) 1, Urine RBC (Auto) 1, Urine Hyaline Casts (Auto) 0, Urine Bacteria (Auto) NEGATIVE, Urine Squamous Epithelial Cells 0, Urine Mucus (Auto) SMALL, Urine Sperm (Auto) , Blood Gas Bicarbonate Standard 22.6, Venous Blood pH 7.441H, Venous Blood Partial Pressure CO2 31.5L, Venous Blood Partial Pressure O2 81.8H, Venous Blood Total Carbon Dioxide 21.9L, Venous Blood HCO3 21.0L, Venous Blood Oxygen Saturation 95.6H, Venous Blood Base Excess -2.2L, Lactic Acid Level 1.7 08/18/18 21:27: Anion Gap 10, Glomerular Filtration Rate > 60.0, Calcium Level 8.0L, Aspartate Amino Transf (AST/SGOT) 25, Alanine Aminotransferase (ALT/SGPT) 24, Alkaline Phosphatase 118H, Total Bilirubin 0.7, Direct Bilirubin 0.3H, Ammonia 13, Total Creatine Kinase 78, Creatine Kinase MB 2.0, Creatine Kinase MB Relative Index 2.05, Troponin I < 0.02, Total Protein 6.7, Albumin 1.8L, Albumin/Globulin Ratio 0.37L, Thyroid Stimulating Hormone (TSH) 0.981 08/19/18 07:08: Immature Granulocyte % (Auto) 0.5, White Blood Count 10.1H, Red Blood Count 4.07, Hemoglobin 10.9L, Hematocrit 36.2, Mean Corpuscular Volume 88.9, Mean Corpuscular Hemoglobin 26.8L, Mean Corpuscular Hemoglobin Concent 30.1L, Red Cell Distribution Width 16.4H, Platelet Count 269, Neutrophils (%) (Auto) 71.7H, Lymphocytes (%) (Auto) 21.6L, Monocytes (%) (Auto) 5.5H, Eosinophils (%) (Auto) 0.5, Basophils (%) (Auto) 0.2, Neutrophils # (Auto) 7.3, Lymphocytes # (Auto) 2.2, Monocytes # (Auto) 0.6, Eosinophils # (Auto) 0.1, Basophils # (Auto) 0.0, Nucleated Red Blood Cells % (auto) 0.3H, Anion Gap 7L, Glomerular Filtration Rate > 60.0, Calcium Level 9.0, Blood Urea Nitrogen 59H, Creatinine 1.01, Sodium Level 162*H, Potassium Level 2.8*L, Chloride Level 128H, Carbon Dioxide Level 27 CBC/BMP Laboratory Tests 08/18/18 20:13 Red Blood Count 4.64, Mean Corpuscular Volume 91.6, Mean Corpuscular Hemoglobin 26.5 L, Mean Corpuscular Hemoglobin Concent 28.9 L, Red Cell Distribution Width 17.8 H, Neutrophils (%) (Auto) 72.4 H, Lymphocytes (%) (Auto) 20.6 L, Monocytes (%) (Auto) 6.1 H, Eosinophils (%) (Auto) 0.2, Basophils (%) (Auto) 0.2, Neutrophils # (Auto) 9.3 H, Lymphocytes # (Auto) 2.6, Monocytes # (Auto) 0.8, Eosinophils # (Auto) 0.0, Basophils # (Auto) 0.0 08/18/18 21:27 08/19/18 07:08 Red Blood Count 4.07, Mean Corpuscular Volume 88.9, Mean Corpuscular Hemoglobin 26.8 L, Mean Corpuscular Hemoglobin Concent 30.1 L, Red Cell Distribution Width 16.4 H, Neutrophils (%) (Auto) 71.7 H, Lymphocytes (%) (Auto) 21.6 L, Monocytes (%) (Auto) 5.5 H, Eosinophils (%) (Auto) 0.5, Basophils (%) (Auto) 0.2, Neutrophils # (Auto) 7.3, Lymphocytes # (Auto) 2.2, Monocytes # (Auto) 0.6, Eosinophils # (Auto) 0.1, Basophils # (Auto) 0.0, Calcium Level 9.0 Microbiology Microbiology 08/18/18 Blood Culture, Received Pending 08/18/18 Blood Culture, Received Pending 08/18/18 Blood Culture, Received Pending Attending Note Attending Note Blood cultures ordered but sepsis is not really suspected, so will hold off on antibiotic initiation. KARLEE NOLASCO PA-C Aug 19, 2018 08:28 Jarad Su MD Aug 19, 2018 10:11
[2018-08-19 08:29] LABS: MAGNESIUM LEVEL 2.9 MG/DL (1.8-2.4)
[2018-08-19] MEDS ORDERED: KCL 10MEQ/100ML SWI (KRUN) 10 MEQ in APPROPRIATE DILUENT 1 EA IV ONE ×2 (08:30→14:00)
[2018-08-19] MEDS: PANTOPRAZOLE 40MG INJ (PROTONIX) (C9113) IV SCH (08:33)
[2018-08-19] MEDS: KCL 20MEQ IN D5W 1000ML 1,000 ML IV SCH ×2 (08:58→19:00)
--- NOTE | 2018-08-19 09:05 | ECGEPIP ---
Stationary ECG Study [facility] - ED Test Date: 2018-08-18 Pat Name: LANEY BLACKWELL Department: Room: [place] [address] Gender: F Office Receptionist: ABELINO : 1945 Requested By: TEODORO Daly Order Number: [id number] Reading MD: Kana Herrmann Measurements Intervals [place] Rate: 108 P: 24 IA: 116 QRS: -44 QRSD: 82 T: 106 QT: 351 QTc: 472 Interpretive Statements SINUS TACHYCARDIA WITH SHORT IA INTERVAL WITH OCCASIONAL SUPRAVENTRICULAR PREMATURE COMPLEXES LEFT AXIS DEVIATION POSSIBLE RIGHT VENTRICULAR CONDUCTION DELAY LEFT VENTRICULAR HYPERTROPHY AND ST-T CHANGE NO PRIORS FOR COMPARISON Electronically Signed On 08-19-2018 9:05:08 EST by Kana Herrmann
[2018-08-19 10:00] VITALS: BP 150/90
[2018-08-19 13:39] LABS: BLOOD UREA NITROGEN 53 MG/DL (7-18); CALCIUM LEVEL 8.6 MG/DL (8.8-10.2); CARBON DIOXIDE LEVEL 29 MEQ/L (21-32); CHLORIDE LEVEL 127 MEQ/L (98-107); CREATININE FOR GFR 0.97 MG/DL (0.55-1.30); GLOMERULAR FILTRATION RATE > 60.0 (>39); GLUCOSE, FASTING 196 MG/DL (70-100); POTASSIUM SERUM 3.2 MEQ/L (3.5-5.1); SODIUM LEVEL 159 MEQ/L (136-145)
[2018-08-19] MEDS: HEPARIN SOD (PORCINE) 5000 UNITS/ML VIAL SQ SCH ×2 (14:24→20:55)
[2018-08-19 14:45] VITALS: BP 152/90
[2018-08-19 16:00] VITALS: BP 162/88
[2018-08-19] MEDS: cefTRIAXone SOD 1 GM in D5W MINI-BAG PLUS 50 ML IV SCH (16:49)
--- NOTE | 2018-08-19 16:54 | PHACANCOPD ---
PHARMACY VANCOMYCIN DOSING Pt Demographics Demographics Patient Age:73 , Weight:61.200 , Gender: female Adjusted Body Weight Date: 08/19/18, Adjusted Body Weight: Kg Vancomycin Vancomycin indication: SEPSIS Vancomycin Target Ranges: 10-20 mcg/ml Vancomycin Load Y/N: Yes Load Dose Date Time Vancomycin Load Dose: 1500mg Date: 08/19/18 Time:1700 Vancomycin Dose Date: 08/19/18. Current Vancomycin Dose: [1g IV Q18H] Intermittent Dosing?: No Labs Labs Item Value Date Time White Blood Count 12.8 10^3/uL H 08/18/182012 White Blood Count 10.1 10^3/uL H 08/19/18 0708 Creatinine 1.08 MG/DL 08/18/182126 Creatinine 1.01 MG/DL 08/19/18 0708 Creatinine 0.97 MG/DL 08/19/18 1258 Blood Urea Nitrogen 53 MG/DL H 08/19/18 1258 Blood Urea Nitrogen 59 MG/DL H 08/19/18 0708 Blood Urea Nitrogen 64 MG/DL H 08/18/187 Lactic Acid Level 1.7 MMOL/L 08/18/182012 Micro Microbiology 08/18/18 Blood Culture, Received Pending 08/18/18 Blood Culture, Received Pending 08/18/18 Blood Culture - Preliminary, Resulted Creatinine Clearance Date:08/19/18. Est Creatinine Clearance: [~47 ml/min]. Assessment and Plan Maintaining Current Dose?: Yes Reason for dose change: No Dose Change Pharmacist Note Pharmacist Note Date: 08/19/18. Pharmacist note: Day #1 empiric vancomycin therapy initiated with a 1500mg loading dose, followed by a maintenance regimen of 1g IV Q18H for the treatment of sepsis - aiming for a goal trough of 10-20mcg/ml. Preliminary blood cultures are growing gram positive organisms. Repeat cultures are pending. WBC is currently elevated but is trending down. LA is WNL and the patient has been afebrile since admit. The patient is from [facility] and MRSA hx is unknown at this time. There is no PMH of vanco use here at [facility]. We will continue to monitor and schedule a trough level when appropriate. TRAVON DONALD PHARMACY Aug 19, 2018 16:53
[2018-08-19] MEDS: VANCOMYCIN HCL 1,000 MG, VIAL MATE ADAPTER 1 EACH in D5W 250 ML IV SCH (17:21)
[2018-08-19] MEDS ORDERED: VANCOMYCIN HCL 500 MG in D5W MINI-BAG PLUS 100 ML IV ONE (18:00)
[2018-08-19 20:00] VITALS: BP 158/70
[2018-08-20] VITALS: BP 154/106
[2018-08-20 04:00] VITALS: BP 139/96
[2018-08-20 06:02] LABS: HEMATOCRIT 33.6 % (36.0-47.0); HEMOGLOBIN 9.9 g/dl (12.0-15.5); MEAN CORPUSCULAR HGB CONC 29.5 g/dl (32.0-36.5); MEAN CORPUSCULAR VOLUME 88.2 fl (80.0-96.0); PLATELET COUNT, AUTOMATED 205 10^3/uL (150-450); RED BLOOD COUNT 3.81 10^6/uL (4.00-5.40); WHITE BLOOD COUNT 7.8 10^3/uL (4.0-10.0)
[2018-08-20] MEDS: HEPARIN SOD (PORCINE) 5000 UNITS/ML VIAL SQ SCH ×3 (06:24→15:26)
[2018-08-20 06:27] LABS: BLOOD UREA NITROGEN 35 MG/DL (7-18); CALCIUM LEVEL 8.3 MG/DL (8.8-10.2); CARBON DIOXIDE LEVEL 26 MEQ/L (21-32); CHLORIDE LEVEL 121 MEQ/L (98-107); CREATININE FOR GFR 0.91 MG/DL (0.55-1.30); GLOMERULAR FILTRATION RATE > 60.0 (>39); GLUCOSE, FASTING 176 MG/DL (70-100); POTASSIUM SERUM 3.4 MEQ/L (3.5-5.1); SODIUM LEVEL 154 MEQ/L (136-145)
[2018-08-20 08:00] VITALS: BP 148/97
--- NOTE | 2018-08-20 08:04 | IPNPDOC ---
Subjective Date Seen The patient was seen on 08/20/18. Subjective Chief Complaint/HPI Patient's eyes are open. Non-verbal. Does not follow commands Constitutional: Denies: Chills, Fever Pulmonary: Denies: Dyspnea, Cough Cardiovascular: Denies: Chest Pain Gastrointestinal: Denies: Nausea, Vomiting, Abdominal Pain, Diarrhea, Constipation Objective Physical Examination General Exam: Positive: Alert, No Acute Distress, Other (Awake but non-verbal) Chest Exam: Positive: Clear to auscultation; Negative: Rales, Rhonchi, Wheezing Heart Exam: Positive: Rate Normal, Regular Rhythm Abdomen Exam: Positive: Normal bowel sounds, Soft; Negative: Tenderness Extremity Exam: Negative: Edema Assessment /Plan Problems (1) Positive blood culture Status: Acute Problem Text: 1 Blood culture with positive preliminary result. f/U B/C negative On IV Abx empirically, but with negative f/u cultures and no clear source for infection, we could probably d/c IV abx once we get final results of 1st blood culture (2) At risk for dehydration due to poor fluid intake Status: Chronic Problem Text: Dr. Su has spoken with Dr. Flower who states family would li ke to pursue PEG. Dr. King consulted for this Cont. IVF for now (3) Hypernatremia Status: Acute Response to Treatment: Improving Problem Text: Now on potassium Chloride/Dextrose IVF at 100 cc/hour. Na+ gra dually improving Replace K with another K run this am (4) HTN (hypertension) Status: Acute Problem Text: 08/20 - BP variable - continue to monitor' she is not normally on antihypertensives - patient unable to take po meds currently unresponsive - Could place NTG paste or give IV labetalol if needed. (5) Hemiparesis and other late effects of cerebrovascular accident Status: Chronic Problem Text: CT without acute findings. ASA on hold while NPO (6) Hypothyroidism Status: Chronic Response to Treatment: Stable Problem Text: Not taking po currently - restart once more alert (7) Hyperlipidemia (8) Metabolic encephalopathy Status: Acute Response to Treatment: Improving Plan/VTE VTE Prophylaxis Ordered?: Yes (Start SQ heparin) Disposition Back to [facility] once stable VS, I&O, 24H, Fishbone Vital Signs/I&O Vital Signs Date Time Temp Pulse Resp B/P (MAP) Pulse Ox O2 Delivery O2 Flow Rate FiO2 08/20/18 04:00 97.5 67 16 139/96 (110) 100 08/19/18 01:11 Room Air I&O- Last 24 Hours up to 6 AM 08/20/18 06:00 Intake Total 340 ml Output Total 275 ml Balance 65 ml Laboratory Data 24H LABS Laboratory Tests 2 08/19/18 12:58: Anion Gap 3L, Glomerular Filtration Rate > 60.0, Blood Urea Nitrogen 53H, Creatinine 0.97, Sodium Level 159H, Potassium Level 3.2L, Chloride Level 127H, Carbon Dioxide Level 29, Calcium Level 8.6L 08/20/18 05:28: Anion Gap 7L, Glomerular Filtration Rate > 60.0, Blood Urea Nitrogen 35H, Creatinine 0.91, Sodium Level 154H, Potassium Level 3.4L, Chloride Level 121H, Carbon Dioxide Level 26, Calcium Level 8.3L, Nucleated Red Blood Cells % (auto) 0.4H CBC/BMP Laboratory Tests 08/19/18 12:58 Calcium Level 8.6 L 08/20/18 05:28 Calcium Level 8.3 L, Red Blood Count 3.81 L, Mean Corpuscular Volume 88.2, Mean Corpuscular Hemoglobin 26.0 L, Mean Corpuscular Hemoglobin Concent 29.5 L, Red Cell Distribution Width 16.1 H Microbiology Microbiology 08/18/18 Blood Culture - Preliminary, Resulted No growth after 24 hours . All specim... 08/18/18 Blood Culture - Preliminary, Resulted No growth after 24 hours . All specim... 08/18/18 Blood Culture - Preliminary, Resulted KARLEE NOLASCO PA-C Aug 20, 2018 08:04
[2018-08-20] MEDS: KCL 20MEQ IN D5W 1000ML 1,000 ML IV SCH ×2 (08:06→17:32)
[2018-08-20] MEDS: PANTOPRAZOLE 40MG INJ (PROTONIX) (C9113) IV SCH (08:06)
[2018-08-20] MEDS ORDERED: KCL 10MEQ/100ML SWI (KRUN) 10 MEQ in APPROPRIATE DILUENT 1 EA IV ONE (11:00)
[2018-08-20 12:00] VITALS: BP 156/99
[2018-08-20] MEDS: VANCOMYCIN HCL 1,000 MG, VIAL MATE ADAPTER 1 EACH in D5W 250 ML IV SCH (12:10)
[2018-08-20 13:54] LABS: BLOOD UREA NITROGEN 30 MG/DL (7-18); CALCIUM LEVEL 8.3 MG/DL (8.8-10.2); CARBON DIOXIDE LEVEL 26 MEQ/L (21-32); CHLORIDE LEVEL 119 MEQ/L (98-107); CREATININE FOR GFR 0.81 MG/DL (0.55-1.30); GLOMERULAR FILTRATION RATE > 60.0 (>39); GLUCOSE, FASTING 156 MG/DL (70-100); POTASSIUM SERUM 3.6 MEQ/L (3.5-5.1); SODIUM LEVEL 150 MEQ/L (136-145)
[2018-08-20] MEDS: cefTRIAXone SOD 1 GM in D5W MINI-BAG PLUS 50 ML IV SCH (15:25)
[2018-08-20 16:00] VITALS: BP 155/98
[2018-08-20 20:00] VITALS: BP 150/86
--- NOTE | 2018-08-20 21:19 | CR ---
DATE OF CONSULTATION: 08/20/2018 REASON FOR CONSULTATION: Percutaneous endoscopic gastrostomy tube insertion (dysphagia with mental status changes). HISTORY OF PRESENT ILLNESS: The patient 73-year-old female with a CVA left hemiparesis, mental status changes associated with hypernatremia and progressive weight loss associated with dysphagia issues. She presented initially with a hypernatremia with a sodium of 167 and that is been slowly diminishing each day. She is starting to respond more from a medical standpoint and is much more responsive to stimuli. Her family would like to proceed with a percutaneous endoscopic gastrostomy tube insertion. PAST MEDICAL HISTORY: Significant for history of CVA and left hemiparesis, history of cognitive disorders, history of depression, history of hypertension, hypothyroidism, hyperlipidemia, history of dehydration, multiple episodes of needing hospitalization / IV fluid resuscitation, history of constipation, history of hypothyroidism. MEDICATIONS: MiraLax, aspirin, Senokot, Norvasc, Synthroid, mirtazapine. PHYSICAL EXAMINATION: Physical exam reveals a 73-year-old female who looks stated age. She is very minimally responsive. Is able to look over at me when I examine her and tracks with some minimal success. She has a left hemiparesis that is extensive with some spastic quality to it. Otherwise lungs are clear anteriorly, diminished significantly posteriorly. Heart is regular with a few irregular beats. Abdomen is softly distended, tympanitic throughout. Extremities: Warm, well-perfused. IMPRESSION AND PLAN: The patient has significant dysphasia associated with her neurologic impairment and at this point the family would like to proceed with percutaneous endoscopic gastrostomy tube insertion. We will plan on percutaneous endoscopic gastrostomy tube insertion. The risks as well as benefits will be discussed with family at length, those including but not limited to infection, bleeding, damage to surrounding structure, bowel perforation, stomach perforation, etc. and we will proceed with this tomorrow.
[2018-08-21] VITALS (12 sets, daily range): BP systolic 140–170; BP diastolic 54–102
[2018-08-21] MEDS: KCL 20MEQ IN D5W 1000ML 1,000 ML IV SCH (01:00)
[2018-08-21] MEDS: VANCOMYCIN HCL 1,000 MG, VIAL MATE ADAPTER 1 EACH in D5W 250 ML IV SCH (05:00)
[2018-08-21 05:57] LABS: BLOOD UREA NITROGEN 20 MG/DL (7-18); CALCIUM LEVEL 7.9 MG/DL (8.8-10.2); CARBON DIOXIDE LEVEL 25 MEQ/L (21-32); CHLORIDE LEVEL 112 MEQ/L (98-107); CREATININE FOR GFR 0.79 MG/DL (0.55-1.30); GLOMERULAR FILTRATION RATE > 60.0 (>39); GLUCOSE, FASTING 168 MG/DL (70-100); MAGNESIUM LEVEL 1.9 MG/DL (1.8-2.4); POTASSIUM SERUM 3.7 MEQ/L (3.5-5.1); SODIUM LEVEL 144 MEQ/L (136-145)
[2018-08-21 07:06] LABS: HEMATOCRIT 34.8 % (36.0-47.0); HEMOGLOBIN 10.5 g/dl (12.0-15.5); MEAN CORPUSCULAR HEMOGLOBIN 26.6 pg (27.0-33.0); MEAN CORPUSCULAR HGB CONC 30.2 g/dl (32.0-36.5); MEAN CORPUSCULAR VOLUME 88.1 fl (80.0-96.0); PLATELET COUNT, AUTOMATED 193 10^3/uL (150-450); RED BLOOD COUNT 3.95 10^6/uL (4.00-5.40); WHITE BLOOD COUNT 6.8 10^3/uL (4.0-10.0)
[2018-08-21] MEDS ORDERED: LIDOCAINE 2% INJ 100 MG/5 ML SDV (FOR ANES.) As Ordered ONE (08:03)
[2018-08-21] MEDS ORDERED: PROPOFOL 200 MG/20 ML VIAL As Ordered ONE (08:03)
[2018-08-21] MEDS ORDERED: MIDAZOLAM INJ 2 MG/2 ML VIAL (J2250) As Ordered ONE (08:03)
[2018-08-21] MEDS ORDERED: fentaNYL 100 MCG/2 ML INJECTION (J3010) As Ordered ONE (08:03)
[2018-08-21] MEDS ORDERED: ONDANSETRON 4MG/2ML VIAL (J2405) As Ordered ONE (08:03)
[2018-08-21] MEDS ORDERED: SIMETHICONE 40MG/0.6ML DROPS 30ML As Ordered ONE (08:09)
[2018-08-21] MEDS ORDERED: hydrALAZINE INJ 20 MG/ML VIAL As Ordered ONE (08:51)
--- NOTE | 2018-08-21 08:56 | IPNPDOC ---
Subjective Date Seen The patient was seen on 08/21/18. Subjective Chief Complaint/HPI Daughter at bedside. Planning to meet with Surgeon this am to sign consent for PEG placement today. She states her mother is awake and said a few words yesterday, but not as verbal as baseline. She admits that her mother has become less verbal over the past several weeks as she has been battling the dehydration episodes. Constitutional: Denies: Chills, Fever Pulmonary: Denies: Dyspnea, Cough Cardiovascular: Denies: Chest Pain, Palpitations Gastrointestinal: Denies: Nausea, Vomiting, Abdominal Pain, Diarrhea, Constipation Objective Physical Examination General Exam: Positive: Alert, No Acute Distress, Other (Awake but non-verbal) Chest Exam: Positive: Clear to auscultation; Negative: Rales, Rhonchi, Wheezing Heart Exam: Positive: Rate Normal, Regular Rhythm Abdomen Exam: Positive: Normal bowel sounds, Soft; Negative: Tenderness Extremity Exam: Negative: Edema Neuro Exam: Positive: Other (Not moving extremities) Assessment /Plan Problems (1) Positive blood culture Status: Acute Problem Text: 08/21 - 1 Blood culture with positive - Grew staph hominis. (Likely contaminate) F/U B/C x 2 were negative On IV Abx empirically, but with negative f/u cultures and no clear source for infection, we will d/c IV abx today (2) At risk for dehydration due to poor fluid intake Status: Chronic Problem Text: 08/21 - Plan for PEG today Dr. Su has spoken with Dr. Flower who states family would like to pursue PEG. Dr. King consulted for this Cont. IVF for now (3) Hypernatremia Status: Resolved Response to Treatment: Improving Problem Text: 08/21 - Na+ has normalized - continue potassium Chloride/Dextrose IVF at 100 cc/hour. k+ normalized. Change to D5 1/2NS plus 10mEq K until we can start to use PEG. (4) HTN (hypertension) Status: Acute Problem Text: 08/21 - BP variable - start BP meds if needed once PEG in place she is not normally on antihypertensives - patient unable to take po meds currently - Could place NTG paste or give IV labetalol if needed. (5) Hemiparesis and other late effects of cerebrovascular accident Status: Chronic Problem Text: CT without acute findings. ASA on hold while NPO (6) Hypothyroidism Status: Chronic Response to Treatment: Stable Problem Text: Not taking po currently - restart once PEG in place (7) Hyperlipidemia (8) Metabolic encephalopathy Status: Acute Response to Treatment: Improving Plan/VTE VTE Prophylaxis Ordered?: Yes (Start SQ heparin) Disposition Back to [facility] once stable VS, I&O, 24H, Fishbone Vital Signs/I&O Vital Signs Date Time Temp Pulse Resp B/P (MAP) Pulse Ox O2 Delivery O2 Flow Rate FiO2 08/21/18 04:00 98.1 73 18 140/80 (100) 97 08/19/18 01:11 Room Air I&O- Last 24 Hours up to 6 AM 08/21/18 06:00 Intake Total 1420 ml Output Total 275 ml Balance 1145 ml Laboratory Data 24H LABS Laboratory Tests 2 08/20/18 13:04: Anion Gap 5L, Glomerular Filtration Rate > 60.0, Blood Urea Nitrogen 30H, Creatinine 0.81, Sodium Level 150H, Potassium Level 3.6, Chloride Level 119H, Carbon Dioxide Level 26, Calcium Level 8.3L 08/21/18 05:01: Anion Gap 7L, Glomerular Filtration Rate > 60.0, Blood Urea Nitrogen 20H, Creatinine 0.79, Sodium Level 144, Potassium Level 3.7, Chloride Level 112H, Carbon Dioxide Level 25, Calcium Level 7.9L, Nucleated Red Blood Cells % (auto) 0.4H, Magnesium Level 1.9 CBC/BMP Laboratory Tests 08/20/18 13:04 Calcium Level 8.3 L 08/21/18 05:01 Calcium Level 7.9 L, Red Blood Count 3.95 L, Mean Corpuscular Volume 88.1, Mean Corpuscular Hemoglobin 26.6 L, Mean Corpuscular Hemoglobin Concent 30.2 L, Red Cell Distribution Width 15.9 H Microbiology Microbiology 08/18/18 Blood Culture - Preliminary, Resulted No Growth after 48 hours. All Specime... 08/18/18 Blood Culture - Preliminary, Resulted No Growth after 48 hours. All Specime... 08/18/18 Blood Culture - Final, Complete Staphylococcus Hominis Ssp Ana KARLEE NOLASCO PA-C Aug 21, 2018 08:55 Jarad Su MD Aug 21, 2018 09:02
[2018-08-21] MEDS ORDERED: LIDOCAINE 1% MDV 20ML VIAL SC ONE (09:11)
[2018-08-21] MEDS ORDERED: ONDANSETRON 4MG/2ML VIAL (J2405) IV PRN (09:45)
[2018-08-21] MEDS ORDERED: LR 1,000 ML IV SCH (09:45)
[2018-08-21] MEDS ORDERED: fentaNYL 100 MCG/2 ML INJECTION (J3010) IV PRN (09:45)
[2018-08-21] MEDS: PANTOPRAZOLE 40MG INJ (PROTONIX) (C9113) IV SCH (11:03)
[2018-08-21] MEDS: KCL 10MEQ IN D5/0.45NS 1000ML 1,000 ML IV SCH ×2 (11:03→22:00)
[2018-08-21] MEDS ORDERED: ACETAMINOPHEN 325 MG/10.15 ML UDC GT PRN (13:30)
[2018-08-21] MEDS: HEPARIN SOD (PORCINE) 5000 UNITS/ML VIAL SQ SCH ×2 (15:17→21:59)
[2018-08-21] MEDS ORDERED: PILL CRUSHER/CUTTER 1 EACH XX PRN (23:15)
[2018-08-21] MEDS: ATENOLOL 50 MG TAB PEG SCH (23:25)
[2018-08-22] VITALS: BP 148/52
[2018-08-22 04:00] VITALS: BP_SYST 130; BP_SYST 142; BP_DIAS 69; BP_DIAS 82
[2018-08-22 05:39] LABS: HEMATOCRIT 32.3 % (36.0-47.0); HEMOGLOBIN 9.8 g/dl (12.0-15.5); MEAN CORPUSCULAR HEMOGLOBIN 26.4 pg (27.0-33.0); MEAN CORPUSCULAR HGB CONC 30.3 g/dl (32.0-36.5); MEAN CORPUSCULAR VOLUME 87.1 fl (80.0-96.0); PLATELET COUNT, AUTOMATED 180 10^3/uL (150-450); RED BLOOD COUNT 3.71 10^6/uL (4.00-5.40); WHITE BLOOD COUNT 6.7 10^3/uL (4.0-10.0)
[2018-08-22] MEDS: LEVOTHYROXINE 125MCG TABLET (0.125MG) PEG SCH (06:00)
[2018-08-22] MEDS: HEPARIN SOD (PORCINE) 5000 UNITS/ML VIAL SQ SCH ×3 (06:00→20:53)
[2018-08-22 06:03] LABS: BLOOD UREA NITROGEN 11 MG/DL (7-18); CALCIUM LEVEL 7.5 MG/DL (8.8-10.2); CARBON DIOXIDE LEVEL 25 MEQ/L (21-32); CHLORIDE LEVEL 109 MEQ/L (98-107); CREATININE FOR GFR 0.71 MG/DL (0.55-1.30); GLOMERULAR FILTRATION RATE > 60.0 (>39); GLUCOSE, FASTING 143 MG/DL (70-100); MAGNESIUM LEVEL 1.7 MG/DL (1.8-2.4); POTASSIUM SERUM 3.5 MEQ/L (3.5-5.1); SODIUM LEVEL 141 MEQ/L (136-145)
[2018-08-22 08:00] VITALS: BP 158/93
[2018-08-22] MEDS: PANTOPRAZOLE 40MG INJ (PROTONIX) (C9113) IV SCH (08:02)
[2018-08-22] MEDS: KCL 10MEQ IN D5/0.45NS 1000ML 1,000 ML IV SCH (08:04)
--- NOTE | 2018-08-22 09:39 | RO ---
DATE OF PROCEDURE: 08/21/2018 PREOPERATIVE DIAGNOSIS: Dysphagia. POSTOPERATIVE DIAGNOSIS: Dysphagia. PROCEDURE: Percutaneous endoscopic gastrostomy tube. SURGEON: Dr. Daniel King AIRCRAFT PART ASSEMBLER: Dr. Agustin (provided the abdominal portion of the percutaneous endoscopic gastrostomy (PEG) tube insertion). ANESTHESIA: ESTIMATED BLOOD LOSS: Minimal. FLUIDS: Crystalloid. BRIEF PROCEDURE SUMMARY: The patient was brought to the operating room and was given IV sedation, prepped and draped in the usual sterile fashion. The gastroscope was inserted into the oropharynx and down into the esophagus without difficulty. The esophagus was somewhat J-shaped, but no significant abnormality was appreciated in the proximal stomach. In the distal stomach, there was some minimal gastritis appreciated. The duodenum appeared normal without evidence of post bulbar duodenal obstruction. The scope was brought back into the stomach, insufflated and transillumination of the abdominal wall showed the light in the epigastric area. The finder needle was placed into the stomach and then the needle was placed into the stomach, the wire was grasped and brought out through the oropharynx and the 20-Sami gastrostomy tube was placed over the wire without difficulty. The scope was reinserted into the stomach, insufflated and indeed revealed the bumper up against the gastric wall without undue tension and the bumper on the outside was about at 3-1/2 cm and without undue tension. The catheter aspirated and flushed easily. The patient was awakened from her sedation and brought to the recovery room hemodynamically stable.
--- NOTE | 2018-08-22 09:51 | IPN ---
DATE: 08/22/2018 The gastrostomy tube site appears normal without any significant inflammatory changes. Vital signs are stable. Ins and outs reveal a bowel movement yesterday and no other significant abnormalities. Her white count is still within normal limits. Her G tube site is clean and dry without any drainage. There is some minimal saliva in the G tube itself, that has been to gravity overnight, but otherwise no other significant abnormality. IMPRESSION AND PLAN: The patient has a gastrostomy tube in and has tolerated this overnight. Will plan on gastrostomy tube feedings and this can be evaluated/monitored by dietary and as per their recommendations as necessary. I will sign off for now. If you have any problems or concerns about the gastrostomy tube, please contact me.
[2018-08-22 12:00] VITALS: BP 161/95
[2018-08-22 16:00] VITALS: BP 132/65
[2018-08-22] MEDS ORDERED: SLF 3 ML SYR IV PRN (17:15)
[2018-08-22 20:00] VITALS: BP 134/74
[2018-08-22] MEDS: ATENOLOL 50 MG TAB PEG SCH (20:52)
[2018-08-22] MEDS: SLF 3 ML SYR IV SCH (20:53)
[2018-08-23] VITALS: BP 130/72
[2018-08-23 04:00] VITALS: BP 114/69
[2018-08-23 05:45] LABS: BASO % 0.3 % (0.0-1.0); EOS # 0.1 10^3/uL (0.0-0.50); EOS % 1.8 % (0.0-3.0); HEMOGLOBIN 9.5 g/dl (12.0-15.5); LYMPH % 29.5 % (24.0-44.0); MEAN CORPUSCULAR HEMOGLOBIN 26.2 pg (27.0-33.0); MEAN CORPUSCULAR HGB CONC 30.6 g/dl (32.0-36.5); MEAN CORPUSCULAR VOLUME 85.6 fl (80.0-96.0); MONO # 0.7 10^3/uL (0.0-0.8); NEUTROPHILS # 3.7 10^3/uL (1.8-7.7); NEUTROPHILS % 56.1 % (36.0-66.0); PLATELET COUNT, AUTOMATED 185 10^3/uL (150-450); RED BLOOD COUNT 3.62 10^6/uL (4.00-5.40); WHITE BLOOD COUNT 6.6 10^3/uL (4.0-10.0)
[2018-08-23 05:56] LABS: BLOOD UREA NITROGEN 12 MG/DL (7-18); CALCIUM LEVEL 7.5 MG/DL (8.8-10.2); CARBON DIOXIDE LEVEL 28 MEQ/L (21-32); CHLORIDE LEVEL 108 MEQ/L (98-107); CREATININE FOR GFR 0.68 MG/DL (0.55-1.30); GLOMERULAR FILTRATION RATE > 60.0 (>39); GLUCOSE, FASTING 126 MG/DL (70-100); POTASSIUM SERUM 3.6 MEQ/L (3.5-5.1); SODIUM LEVEL 139 MEQ/L (136-145)
[2018-08-23] MEDS: HEPARIN SOD (PORCINE) 5000 UNITS/ML VIAL SQ SCH ×3 (06:35→21:52)
[2018-08-23] MEDS: SLF 3 ML SYR IV SCH ×3 (06:36→21:53)
[2018-08-23] MEDS: LEVOTHYROXINE 125MCG TABLET (0.125MG) PEG SCH (06:38)
[2018-08-23] MEDS: PANTOPRAZOLE 40MG INJ (PROTONIX) (C9113) IV SCH (07:50)
[2018-08-23 08:00] VITALS: BP 122/79
[2018-08-23] MEDS: ROSUVASTATIN 10 MG TAB (CRESTOR) PEG SCH (09:00)
[2018-08-23 12:00] VITALS: BP 139/86
--- NOTE | 2018-08-23 15:33 | IPNPDOC ---
Subjective Date Seen The patient was seen on 08/23/18. Subjective Chief Complaint/HPI had residuals of 240 cc overPM; therefore, TF held Constitutional: Denies: Chills, Fever Eyes: Denies: Pain ENT: Denies: Head Aches Skin: Denies: Rash Pulmonary: Denies: Dyspnea, Cough Cardiovascular: Denies: Chest Pain Gastrointestinal: Denies: Nausea, Vomiting Objective Physical Examination General Exam: Positive: Alert, No Acute Distress, Other (Awake but non-verbal) Chest Exam: Positive: Clear to auscultation; Negative: Rales, Rhonchi, Wheezing Heart Exam: Positive: Rate Normal, Regular Rhythm Abdomen Exam: Positive: Normal bowel sounds, Soft; Negative: Tenderness Extremity Exam: Negative: Edema Neuro Exam: Positive: Other (Not moving extremities) Assessment /Plan Problems (1) Anemia Status: Acute Problem Text: partially ACD/malnutrition, but caution on heparin baseline hgb 12s 08/23 9.5 (2) Dysphagia as late effect of cerebrovascular accident (CVA) Permanent Comment: 08/21/[address] King Last Edited By: Thor Bolden MD on Aug 23, 2018 15:31 Status: Chronic Problem Text: goal 1.5K @60H continuous c 360 total FW 08/23/18 restarted at 20H 08/22/18 + Jevity 1.5 at 50H, but p ~9H at 2130 had residual of 240 x4H, but down to 0 at 08/23 8AM 08/21/[address] King (3) HTN (hypertension) Status: Acute Problem Text: Stable on aten 50 QHS follow HR, now low 60s on BB 08/21/18 + atenolol [address] Allred-not sure why BB chosen (not on ANY agent baseline) (4) Positive blood culture Status: Acute Problem Text: 08/18 BCX 1/3 S hominis-favor contaminant (5) Hypernatremia Status: Resolved Response to Treatment: Improving Problem Text: recurrent, 2 to anorexia/dehydration 08/23 at baseline 19/K 3.6 on TF c FW 60 6x daily (6) Hemiparesis and other late effects of cerebrovascular accident Status: Chronic Problem Text: No new deficits on baseline asa 81 BID 08/18 CT head: IMPRESSION: There is mild to moderate age related parenchymal volume loss. White matter changes are demonstrated in the subcortical, centrum semiovale and periventricular white matter consistent with small vessel white matter angiopathic gliosis. 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) (9) Metabolic encephalopathy Status: Acute Response to Treatment: Improving Problem Text: resolved c correction of dehydration/hyper Na (10) Physical deconditioning Status: Chronic Problem Text: 08/23 + PT Plan/VTE VTE Prophylaxis Ordered?: Yes (Start SQ heparin) VS, I&O, 24H, Fishbone Vital Signs/I&O Vital Signs Date Time Temp Pulse Resp B/P (MAP) Pulse Ox O2 Delivery O2 Flow Rate FiO2 08/23/18 12:00 98.9 69 18 139/86 (103) 98 08/21/18 09:41 Room Air 08/21/18 09:41 2 I&O- Last 24 Hours up to 6 AM 08/23/18 06:00 Intake Total 960 ml Output Total 750 ml Balance 210 ml Laboratory Data 24H LABS Laboratory Tests 2 08/23/18 04:40: Immature Granulocyte % (Auto) 2.3, White Blood Count 6.6, Red Blood Count 3.62L, Hemoglobin 9.5L, Hematocrit 31.0L, Mean Corpuscular Volume 85.6, Mean Corpuscular Hemoglobin 26.2L, Mean Corpuscular Hemoglobin Concent 30.6L, Red Cell Distribution Width 15.8H, Platelet Count 185, Neutrophils (%) (Auto) 56.1, Lymphocytes (%) (Auto) 29.5, Monocytes (%) (Auto) 10.0H, Eosinophils (%) (Auto) 1.8, Basophils (%) (Auto) 0.3, Neutrophils # (Auto) 3.7, Lymphocytes # (Auto) 2.0, Monocytes # (Auto) 0.7, Eosinophils # (Auto) 0.1, Basophils # (Auto) 0.0, Nucleated Red Blood Cells % (auto) 0.3H, Anion Gap 3L, Glomerular Filtration Rate > 60.0, Blood Urea Nitrogen 12, Creatinine 0.68, Sodium Level 139, Potassium Level 3.6, Chloride Level 108H, Carbon Dioxide Level 28, Calcium Level 7.5L CBC/BMP Laboratory Tests 08/23/18 04:40 Red Blood Count 3.62 L, Mean Corpuscular Volume 85.6, Mean Corpuscular Hemoglobin 26.2 L, Mean Corpuscular Hemoglobin Concent 30.6 L, Red Cell Distribution Width 15.8 H, Neutrophils (%) (Auto) 56.1, Lymphocytes (%) (Auto) 29.5, Monocytes (%) (Auto) 10.0 H, Eosinophils (%) (Auto) 1.8, Basophils (%) (Auto) 0.3, Neutrophils # (Auto) 3.7, Lymphocytes # (Auto) 2.0, Monocytes # (Auto) 0.7, Eosinophils # (Auto) 0.1, Basophils # (Auto) 0.0, Calcium Level 7.5 L Microbiology Microbiology 08/18/18 Blood Culture - Preliminary, Resulted No Growth after 72 hours. All specime... 08/18/18 Blood Culture - Preliminary, Resulted No Growth after 72 hours. All specime... 08/18/18 Blood Culture - Final, Complete Staphylococcus Hominis Ssp Ana Thor Bolden M.D. Aug 23, 2018 15:33
--- NOTE | 2018-08-23 15:59 | IPNPDOC ---
Subjective Date Seen The patient was seen on 08/22/18. Subjective Chief Complaint/HPI Patient appears stable. No distress. Nonverbal. General: Reports: ROS Unobtainable Objective Physical Examination General Exam: Positive: Alert, No Acute Distress, Other (Awake but non-verbal) Chest Exam: Positive: Clear to auscultation; Negative: Rales, Rhonchi, Wheezing Heart Exam: Positive: Rate Normal, Regular Rhythm Abdomen Exam: Positive: Normal bowel sounds, Soft; Negative: Tenderness Extremity Exam: Negative: Edema Neuro Exam: Positive: Other (Not moving extremities) Assessment /Plan Problems (1) Anemia Status: Acute Problem Text: partially ACD/malnutrition, but caution on heparin baseline hgb 12s 08/23 9.5 (2) Dysphagia as late effect of cerebrovascular accident (CVA) Permanent Comment: 08/21/[address] King Last Edited By: Thor Bolden MD on Aug 23, 2018 15:31 Status: Chronic Problem Text: Monitor feeds 08/22/18 + Jevity 1.5 at 50H, but p ~9H at 2130 had residual of 240 x4H, but down to 0 at 08/23 8AM 08/21/[address] King (3) HTN (hypertension) Status: Acute Problem Text: Stable on aten 50 QHS follow HR, now low 60s on BB 08/21/18 + atenolol [address] Allred-not sure why BB chosen (not on ANY agent baseline) (4) Positive blood culture Status: Acute Problem Text: 08/18 BCX 1/3 S hominis-favor contaminant (5) Hypernatremia Status: Resolved Response to Treatment: Improving Problem Text: recurrent, 2 to anorexia/dehydration 08/23 at baseline 19/K 3.6 on TF c FW 60 6x daily (6) Hemiparesis and other late effects of cerebrovascular accident Status: Chronic Problem Text: No new deficits on baseline asa 81 BID 08/18 CT head: IMPRESSION: There is mild to moderate age related parenchymal volume loss. White matter changes are demonstrated in the subcortical, centrum semiovale and periventricular white matter consistent with small vessel white matter angiopathic gliosis. 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) (9) Metabolic encephalopathy Status: Acute Response to Treatment: Improving Problem Text: resolved c correction of dehydration/hyper Na Plan/VTE VTE Prophylaxis Ordered?: Yes (Start SQ heparin) VS, I&O, 24H, Fishbone Vital Signs/I&O Vital Signs Date Time Temp Pulse Resp B/P (MAP) Pulse Ox O2 Delivery O2 Flow Rate FiO2 08/23/18 12:00 98.9 69 18 139/86 (103) 98 08/21/18 09:41 Room Air 08/21/18 09:41 2 I&O- Last 24 Hours up to 6 AM 08/23/18 06:00 Intake Total 960 ml Output Total 750 ml Balance 210 ml Laboratory Data 24H LABS Laboratory Tests 2 08/23/18 04:40: Immature Granulocyte % (Auto) 2.3, White Blood Count 6.6, Red Blood Count 3.62L, Hemoglobin 9.5L, Hematocrit 31.0L, Mean Corpuscular Volume 85.6, Mean Corpuscular Hemoglobin 26.2L, Mean Corpuscular Hemoglobin Concent 30.6L, Red Cell Distribution Width 15.8H, Platelet Count 185, Neutrophils (%) (Auto) 56.1, Lymphocytes (%) (Auto) 29.5, Monocytes (%) (Auto) 10.0H, Eosinophils (%) (Auto) 1.8, Basophils (%) (Auto) 0.3, Neutrophils # (Auto) 3.7, Lymphocytes # (Auto) 2.0, Monocytes # (Auto) 0.7, Eosinophils # (Auto) 0.1, Basophils # (Auto) 0.0, Nucleated Red Blood Cells % (auto) 0.3H, Anion Gap 3L, Glomerular Filtration Rate > 60.0, Blood Urea Nitrogen 12, Creatinine 0.68, Sodium Level 139, Potassium Level 3.6, Chloride Level 108H, Carbon Dioxide Level 28, Calcium Level 7.5L CBC/BMP Laboratory Tests 08/23/18 04:40 Red Blood Count 3.62 L, Mean Corpuscular Volume 85.6, Mean Corpuscular Hemoglobin 26.2 L, Mean Corpuscular Hemoglobin Concent 30.6 L, Red Cell Distribution Width 15.8 H, Neutrophils (%) (Auto) 56.1, Lymphocytes (%) (Auto) 29.5, Monocytes (%) (Auto) 10.0 H, Eosinophils (%) (Auto) 1.8, Basophils (%) (Auto) 0.3, Neutrophils # (Auto) 3.7, Lymphocytes # (Auto) 2.0, Monocytes # (Auto) 0.7, Eosinophils # (Auto) 0.1, Basophils # (Auto) 0.0, Calcium Level 7.5 L Microbiology Microbiology 08/18/18 Blood Culture - Preliminary, Resulted No Growth after 72 hours. All specime... 08/18/18 Blood Culture - Preliminary, Resulted No Growth after 72 hours. All specime... 08/18/18 Blood Culture - Final, Complete Staphylococcus Hominis Ssp Ana GME ATTESTATION GME ATTESTATION My faculty preceptor for this patient encounter was physically present during the encounter and was fully available. All aspects of the patient interview, examination, medical decision making process, and medical care plan development were reviewed and approved by the faculty preceptor. The faculty preceptor is aware and concurs with the plan as stated in the body of this note and will attest to such by his/her cosignature. GLENNY CARLSON DO Aug 23, 2018 15:56
[2018-08-23 16:00] VITALS: BP 140/80
[2018-08-23 20:00] VITALS: BP 136/83
[2018-08-23] MEDS: RAMIPRIL 1.25 MG CAP PEG SCH (21:53)
[2018-08-23] MEDS: ASPIRIN 81 MG CHEW TABLET PEG SCH (21:53)
[2018-08-24] VITALS: BP 125/77
[2018-08-24 04:00] VITALS: BP 122/71
[2018-08-24] MEDS: LEVOTHYROXINE 125MCG TABLET (0.125MG) PEG SCH (05:39)
[2018-08-24] MEDS: HEPARIN SOD (PORCINE) 5000 UNITS/ML VIAL SQ SCH ×3 (05:39→21:44)
[2018-08-24] MEDS: SLF 3 ML SYR IV SCH ×3 (05:39→21:44)
[2018-08-24 05:46] LABS: BASO % 0.4 % (0.0-1.0); EOS # 0.1 10^3/uL (0.0-0.50); EOS % 1.9 % (0.0-3.0); HEMATOCRIT 30.2 % (36.0-47.0); HEMOGLOBIN 9.2 g/dl (12.0-15.5); LYMPH # 1.5 10^3/uL (1.5-4.5); LYMPH % 27.6 % (24.0-44.0); MEAN CORPUSCULAR HEMOGLOBIN 26.1 pg (27.0-33.0); MEAN CORPUSCULAR HGB CONC 30.5 g/dl (32.0-36.5); MEAN CORPUSCULAR VOLUME 85.6 fl (80.0-96.0); MONO # 0.5 10^3/uL (0.0-0.8); NEUTROPHILS # 3.2 10^3/uL (1.8-7.7); NEUTROPHILS % 58.2 % (36.0-66.0); PLATELET COUNT, AUTOMATED 197 10^3/uL (150-450); RED BLOOD COUNT 3.53 10^6/uL (4.00-5.40); WHITE BLOOD COUNT 5.4 10^3/uL (4.0-10.0)
[2018-08-24 06:11] LABS: ALBUMIN 1.5 GM/DL (3.2-5.2); ALT/SGPT 17 U/L (12-78); BILIRUBIN,TOTAL 0.4 MG/DL (0.2-1.0); BLOOD UREA NITROGEN 11 MG/DL (7-18); CALCIUM LEVEL 7.7 MG/DL (8.8-10.2); CARBON DIOXIDE LEVEL 27 MEQ/L (21-32); CHLORIDE LEVEL 108 MEQ/L (98-107); CREATININE FOR GFR 0.62 MG/DL (0.55-1.30); GLOMERULAR FILTRATION RATE > 60.0 (>39); GLUCOSE, FASTING 123 MG/DL (70-100); MAGNESIUM LEVEL 1.7 MG/DL (1.8-2.4); POTASSIUM SERUM 3.5 MEQ/L (3.5-5.1); SODIUM LEVEL 140 MEQ/L (136-145); TOTAL PROTEIN 6.1 GM/DL (6.4-8.2)
[2018-08-24 06:22] LABS: FERRITIN 910 NG/ML (8-252)
[2018-08-24 07:46] VITALS: BP 136/83
[2018-08-24] MEDS: ASPIRIN 81 MG CHEW TABLET PEG SCH ×2 (09:23→21:44)
[2018-08-24] MEDS: RAMIPRIL 1.25 MG CAP PEG SCH ×2 (09:24→21:43)
[2018-08-24] MEDS: PANTOPRAZOLE 40MG INJ (PROTONIX) (C9113) IV SCH (09:24)
[2018-08-24] MEDS: ROSUVASTATIN 10 MG TAB (CRESTOR) PEG SCH (09:24)
[2018-08-24 12:00] VITALS: BP 125/73
[2018-08-24] MEDS ORDERED: NS 500 ML IV ONE (14:00)
[2018-08-24] MEDS: METOCLOPRAMIDE INJ 10MG/2ML VIAL (J2765) IV SCH ×2 (14:06→21:44)
--- NOTE | 2018-08-24 15:20 | IPNPDOC ---
Subjective Date Seen The patient was seen on 08/24/18. Subjective Chief Complaint/HPI Patient moves in response to name. Still nonverbal. General: Reports: ROS Unobtainable Objective Physical Examination General Exam: Positive: Alert, No Acute Distress, Other (Awake but non-verbal) Chest Exam: Positive: Clear to auscultation; Negative: Rales, Rhonchi, Wheezing Heart Exam: Positive: Rate Normal, Regular Rhythm Abdomen Exam: Positive: Normal bowel sounds, Soft; Negative: Tenderness Extremity Exam: Negative: Edema Neuro Exam: Positive: Other (Not moving extremities) Assessment /Plan Problems (1) Dysphagia as late effect of cerebrovascular accident (CVA) Permanent Comment: 08/21/[address] King Last Edited By: Thor Bolden MD on Aug 23, 2018 15:31 Status: Chronic Problem Text: 08/24 No residuals at noon. Urine output 100 cc overnight. Increasing feeds to Jevity 1.5 at 50/hr. Monitor residuals. Discussed with Dr. King. Starting Reglan to assist. Monitor feeds 08/22/18 + Jevity 1.5 at 50H, but p ~9H at 2130 had residual of 240 x4H, but down to 0 at 10 8AM 08/21/[address] King (2) Hypomagnesemia Problem Text: Mg 1.7, mag run. Repeat tomorrow. (3) Anemia Status: Acute Problem Text: Repeat lab tomorrow. B12, folate ordered. partially ACD/malnutrition, but caution on heparin baseline hgb 12s 08/23 9.5 (4) HTN (hypertension) Status: Acute Problem Text: On Ramipril 2.5 mg like home, continue for now. Monitor BP. Atenolol held. follow HR, now low 60s on BB 08/21/18 + atenolol [address] Allred-not sure why BB chosen (not on ANY agent baseline) (5) Hemiparesis and other late effects of cerebrovascular accident Status: Chronic Problem Text: No new deficits on baseline asa [address] head: IMPRESSION: There is mild to moderate age related parenchymal volume loss. White matter changes are demonstrated in the subcortical, centrum semiovale and periventricular white matter consistent with small vessel white matter angiopathic gliosis. 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) (8) Metabolic encephalopathy Status: Acute Response to Treatment: Improving Problem Text: resolved c correction of dehydration/hyper Na (9) Positive blood culture Status: Acute Problem Text: 08/18 BCX 1/ S hominis-favor contaminant (10) Hypernatremia Status: Resolved Response to Treatment: Improving Problem Text: recurrent, 2 to anorexia/dehydration 08/23 at baseline / 3.6 on TF c FW 60 6x daily Plan/VTE VTE Prophylaxis Ordered?: Yes (SQ heparin) VS, I&O, 24H, Fishbone Vital Signs/I&O Vital Signs Date Time Temp Pulse Resp B/P (MAP) Pulse Ox O2 Delivery O2 Flow Rate FiO2 08/24/18 12:00 98.2 69 20 125/73 (90) 98 08/21/18 09:41 Room Air 08/21/18 09:41 2 I&O- Last 24 Hours up to 6 AM 08/24/18 06:00 Intake Total 100 ml Output Total 400 ml Balance -300 ml Laboratory Data 24H LABS Laboratory Tests 2 08/24/18 05:26: Immature Granulocyte % (Auto) 1.9, White Blood Count 5.4, Red Blood Count 3.53L, Hemoglobin 9.2L, Hematocrit 30.2L, Mean Corpuscular Volume 85.6, Mean Corpuscular Hemoglobin 26.1L, Mean Corpuscular Hemoglobin Concent 30.5L, Red Cell Distribution Width 16.1H, Platelet Count 197, Neutrophils (%) (Auto) 58.2, Lymphocytes (%) (Auto) 27.6, Monocytes (%) (Auto) 10.0H, Eosinophils (%) (Auto) 1.9, Basophils (%) (Auto) 0.4, Neutrophils # (Auto) 3.2, Lymphocytes # (Auto) 1.5, Monocytes # (Auto) 0.5, Eosinophils # (Auto) 0.1, Basophils # (Auto) 0.0, Reticulocyte # (auto) 98.1H, Nucleated Red Blood Cells % (auto) 0.0, Percent Reticulocyte Count 2.8H, Reticulocyte Hemoglobin Equivalent 30.2, Anion Gap 5L, Glomerular Filtration Rate > 60.0, Blood Urea Nitrogen 11, Creatinine 0.62, Sodium Level 140, Potassium Level 3.5, Chloride Level 108H, Carbon Dioxide Level 27, Calcium Level 7.7L, Aspartate Amino Transf (AST/SGOT) 18, Alanine Aminotransferase (ALT/SGPT) 17, Alkaline Phosphatase 101, Total Bilirubin 0.4, Total Protein 6.1L, Albumin 1.5L, Magnesium Level 1.7L, Ferritin 910H, Albumin/Globulin Ratio 0.33L CBC/BMP Laboratory Tests 08/24/18 05:26 Red Blood Count 3.53 L, Mean Corpuscular Volume 85.6, Mean Corpuscular Hemoglobin 26.1 L, Mean Corpuscular Hemoglobin Concent 30.5 L, Red Cell Distr ibution Width 16.1 H, Neutrophils (%) (Auto) 58.2, Lymphocytes (%) (Auto) 27.6, Monocytes (%) (Auto) 10.0 H, Eosinophils (%) (Auto) 1.9, Basophils (%) (Auto) 0.4, Neutrophils # (Auto) 3.2, Lymphocytes # (Auto) 1.5, Monocytes # (Auto) 0.5, Eosinophils # (Auto) 0.1, Basophils # (Auto) 0.0, Calcium Level 7.7 L, Aspartate Amino Transf (AST/SGOT) 18, Alanine Aminotransferase (ALT/SGPT) 17, Alkaline Ritchie sphatase 101, Total Bilirubin 0.4, Total Protein 6.1 L, Albumin 1.5 L Microbiology Microbiology 08/18/18 Blood Culture - Final, Complete NO GROWTH AFTER 5 DAYS 08/18/18 Blood Culture - Final, Complete NO GROWTH AFTER 5 DAYS 08/18/18 Blood Culture - Final, Complete Staphylococcus Hominis Ssp Ana GME ATTESTATION ATTENDING NOTE Family Medicine Attending Note: I was present on site to supervise Ms. Serra. We discussed the history and exam. I confirmed the edgar elements during my [id number] encounter with the patient. We conferred on the assessment and plan; I agree with the note as documented. It was noted in the afternoon that her urine output was low. She was also receiving less then the fluid volume calculated to be necessary. This is because of gastric residuals. We discussed the situation with her surgeon who recommended we put the volume back to the recommended volume (50 mils per hour) and add Reglan to work as a promotility agent. By the evening that was working well and her residuals were down to 0. 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
[2018-08-24] MEDS: MAG SULF 1GM/100ML (MAG RUN) 1 GM in APPROPRIATE DILUENT 1 EA IV SCH ×2 (16:51→17:57)
[2018-08-24 20:00] VITALS: BP_SYST 127; BP_SYST 136; BP_DIAS 77; BP_DIAS 80
[2018-08-25] VITALS (7 sets, daily range): BP systolic 126–143; BP diastolic 74–92
[2018-08-25] MEDS: METOCLOPRAMIDE INJ 10MG/2ML VIAL (J2765) IV SCH ×3 (05:43→21:39)
[2018-08-25] MEDS: SLF 3 ML SYR IV SCH ×3 (05:43→21:40)
[2018-08-25] MEDS: LEVOTHYROXINE 125MCG TABLET (0.125MG) PEG SCH (05:43)
[2018-08-25] MEDS: HEPARIN SOD (PORCINE) 5000 UNITS/ML VIAL SQ SCH ×3 (05:43→21:39)
[2018-08-25 06:17] LABS: HEMATOCRIT 30.2 % (36.0-47.0); HEMOGLOBIN 9.5 g/dl (12.0-15.5); MEAN CORPUSCULAR HEMOGLOBIN 26.4 pg (27.0-33.0); MEAN CORPUSCULAR HGB CONC 31.5 g/dl (32.0-36.5); MEAN CORPUSCULAR VOLUME 83.9 fl (80.0-96.0); PLATELET COUNT, AUTOMATED 238 10^3/uL (150-450); WHITE BLOOD COUNT 6.2 10^3/uL (4.0-10.0)
[2018-08-25 06:35] LABS: ALBUMIN 1.6 GM/DL (3.2-5.2); BLOOD UREA NITROGEN 10 MG/DL (7-18); CALCIUM LEVEL 7.7 MG/DL (8.8-10.2); CARBON DIOXIDE LEVEL 27 MEQ/L (21-32); CHLORIDE LEVEL 104 MEQ/L (98-107); CREATININE FOR GFR 0.71 MG/DL (0.55-1.30); GLOMERULAR FILTRATION RATE > 60.0 (>39); GLUCOSE, FASTING 214 MG/DL (70-100); MAGNESIUM LEVEL 2.1 MG/DL (1.8-2.4); PHOSPHORUS LEVEL 1.9 MG/DL (2.5-4.9); POTASSIUM SERUM 3.8 MEQ/L (3.5-5.1); SODIUM LEVEL 137 MEQ/L (136-145)
[2018-08-25] MEDS: PANTOPRAZOLE 40MG INJ (PROTONIX) (C9113) IV SCH (09:48)
[2018-08-25] MEDS: ASPIRIN 81 MG CHEW TABLET PEG SCH ×2 (09:48→21:39)
[2018-08-25] MEDS: ROSUVASTATIN 10 MG TAB (CRESTOR) PEG SCH (09:48)
[2018-08-25] MEDS: RAMIPRIL 1.25 MG CAP PEG SCH ×2 (09:49→21:39)
[2018-08-25 10:59] LABS: VITAMIN B12 LEVEL 1962 PG/ML (232-1245)
--- NOTE | 2018-08-25 11:55 | IPNPDOC ---
Subjective Date Seen The patient was seen on 08/25/18. Subjective Chief Complaint/HPI Pt nonverbal. Nursing without new concerns. General: Reports: ROS Unobtainable Objective Physical Examination General Exam: Positive: Alert, No Acute Distress, Other (Awake but non-verbal) Chest Exam: Positive: Clear to auscultation; Negative: Rales, Rhonchi, Wheezing Heart Exam: Positive: Rate Normal, Regular Rhythm Abdomen Exam: Positive: Normal bowel sounds, Soft, Other (PEG tube is in place without significant bleeding or discharge); Negative: Tenderness Extremity Exam: Negative: Edema Neuro Exam: Positive: Other (Not moving extremities) Assessment /Plan Problems (1) Dysphagia as late effect of cerebrovascular accident (CVA) Permanent Comment: 08/21/[address] King Last Edited By: Thor Bolden MD on Aug 23, 2018 3:31 pm Status: Chronic Problem Text: 08/25 if cont to tolerate feeds, plan for D/C to [facility] in AM. 08/24 No residuals at noon. Urine output 100 cc overnight. Increasing feeds to Jevity 1.5 at 50/hr. Monitor residuals. Discussed with Dr. King. Starting Reglan to assist. Monitor feeds 08/22/18 + Jevity 1.5 at 50H, but p ~9H at 2130 had residual of 240 x4H, but down to 0 at 08/23 8AM 08/21/[address] King (2) Hypomagnesemia Status: Resolved Problem Text: Resolved today. Continue to monitor. (3) Anemia Status: Acute Problem Text: Repeat lab tomorrow. B12, folate ordered. partially ACD/malnutrition, but caution on heparin baseline hgb 12s 08/23 9.5 (4) HTN (hypertension) Status: Acute Problem Text: On Ramipril 2.5 mg like home, continue for now. Monitor BP. Atenolol held. follow HR, now low 60s on BB 08/21/18 + atenolol [address] Allred-not sure why BB chosen (not on ANY agent baseline) (5) Hemiparesis and other late effects of cerebrovascular accident Status: Chronic Problem Text: No new deficits on baseline asa 81 BID 2/ CT head: IMPRESSION: There is mild to moderate age related parenchymal volume loss. White matter changes are demonstrated in the subcortical, centrum semiovale and periventricular white matter consistent with small vessel white matter angiopathic gliosis. 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 Sexton, discussed with ARI Davis. Agree with her note as documented. She seems to be doing well. 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) VS, I&O, 24H, Fishbone Vital Signs/I&O Vital Signs Date Time Temp Pulse Resp B/P (MAP) Pulse Ox O2 Delivery O2 Flow Rate FiO2 08/25/18 09:49 120/80 08/25/18 08:00 97.8 77 18 98 08/21/18 09:41 Room Air 08/21/18 09:41 2 I&O- Last 24 Hours up to 6 AM 08/25/18 06:00 Intake Total 700 ml Output Total 300 ml Balance 400 ml Laboratory Data 24H LABS Laboratory Tests 2 08/24/18 16:14: 08/25/18 05:53: Nucleated Red Blood Cells % (auto) 0.0, Blood Urea Nitrogen 10, Creatinine 0.71, Sodium Level 137, Potassium Level 3.8, Chloride Level 104, Carbon Dioxide Level 27, Anion Gap 6L, Glomerular Filtration Rate > 60.0, Calcium Level 7.7L, Phosphorus Level 1.9L, Magnesium Level 2.1, Albumin 1.6L CBC/BMP Laboratory Tests 08/25/18 05:53 Red Blood Count 3.60 L, Mean Corpuscular Volume 83.9, Mean Corpuscular Hemoglobin 26.4 L, Mean Corpuscular Hemoglobin Concent 31.5 L, Red Cell Distribution Width 16.1 H, Anion Gap 6 L Microbiology Microbiology 08/18/18 Blood Culture - Final, Complete NO GROWTH AFTER 5 DAYS 08/18/18 Blood Culture - Final, Complete NO GROWTH AFTER 5 DAYS 08/18/18 Blood Culture - Final, Complete Staphylococcus Hominis Ssp Ana HAMMAD ROCK PA-C Aug 25, 2018 11:55 am Sumanth Berger MD Aug 25, 2018 8:57 pm
[2018-08-26 04:45] VITALS: BP 108/78
[2018-08-26] MEDS: LEVOTHYROXINE 125MCG TABLET (0.125MG) PEG SCH (06:00)
[2018-08-26] MEDS: SLF 3 ML SYR IV SCH (06:18)
[2018-08-26] MEDS: METOCLOPRAMIDE INJ 10MG/2ML VIAL (J2765) IV SCH (06:19)
[2018-08-26] MEDS: HEPARIN SOD (PORCINE) 5000 UNITS/ML VIAL SQ SCH (06:19)
[2018-08-26 06:20] LABS: BASO % 0.4 % (0.0-1.0); EOS # 0.1 10^3/uL (0.0-0.50); EOS % 1.6 % (0.0-3.0); HEMATOCRIT 26.3 % (36.0-47.0); HEMOGLOBIN 8.2 g/dl (12.0-15.5); LYMPH # 1.3 10^3/uL (1.5-4.5); LYMPH % 26.4 % (24.0-44.0); MEAN CORPUSCULAR HEMOGLOBIN 26.5 pg (27.0-33.0); MEAN CORPUSCULAR HGB CONC 31.2 g/dl (32.0-36.5); MEAN CORPUSCULAR VOLUME 85.1 fl (80.0-96.0); MONO # 0.6 10^3/uL (0.0-0.8); MONO % 12.2 % (0.0-5.0); NEUTROPHILS # 2.8 10^3/uL (1.8-7.7); NEUTROPHILS % 58.2 % (36.0-66.0); PLATELET COUNT, AUTOMATED 203 10^3/uL (150-450); RED BLOOD COUNT 3.09 10^6/uL (4.00-5.40); WHITE BLOOD COUNT 4.9 10^3/uL (4.0-10.0)
[2018-08-26 06:45] LABS: ALBUMIN 1.5 GM/DL (3.2-5.2); ALT/SGPT 22 U/L (12-78); BILIRUBIN,TOTAL 0.2 MG/DL (0.2-1.0); BLOOD UREA NITROGEN 10 MG/DL (7-18); CALCIUM LEVEL 7.4 MG/DL (8.8-10.2); CARBON DIOXIDE LEVEL 31 MEQ/L (21-32); CHLORIDE LEVEL 104 MEQ/L (98-107); CREATININE FOR GFR 0.59 MG/DL (0.55-1.30); GLOMERULAR FILTRATION RATE > 60.0 (>39); GLUCOSE, FASTING 165 MG/DL (70-100); POTASSIUM SERUM 3.8 MEQ/L (3.5-5.1); SODIUM LEVEL 140 MEQ/L (136-145); TOTAL PROTEIN 5.4 GM/DL (6.4-8.2)
[2018-08-26 08:49] LABS: FOLATE 9.7 NG/ML (>5.4)
[2018-08-26] MEDS: ROSUVASTATIN 10 MG TAB (CRESTOR) PEG SCH (08:51)
[2018-08-26] MEDS: PANTOPRAZOLE 40MG INJ (PROTONIX) (C9113) IV SCH (08:51)
[2018-08-26] MEDS: ASPIRIN 81 MG CHEW TABLET PEG SCH (08:51)
[2018-08-26 08:52] VITALS: BP 108/78
[2018-08-26] MEDS: RAMIPRIL 1.25 MG CAP PEG SCH (08:52)
[2018-08-26] MEDS ORDERED: LEVO125T4 PEG (09:38)
[2018-08-26] MEDS ORDERED: CHIL81CH2 PEG (09:38)
[2018-08-26] MEDS ORDERED: ALTA1CAP PEG (09:38)
[2018-08-26] MEDS ORDERED: CRES10TA32 PEG (09:38)
[2018-08-26] MEDS ORDERED: ACET160S3 GT (09:38)
[2018-08-26] MEDS ORDERED: METO10VL IV (11:09)
[2018-08-26] MEDS ORDERED: METO10ELUD PEG (11:29)
[2018-08-26] MEDS ORDERED: METOCLOPRAMIDE HCL LIQUID 10 MG/10 ML UDC PEG SCH (14:00)
[2018-08-28 11:29] LABS: HOMOCYST(E)INE SERUM 7.7 umol/L (0.0-15.0)
--- NOTE | 2018-09-15 12:02 | DS.PDOC ---
Discharge Summary General Date of Admission Aug 18, 2018 at 23:14 Date of Discharge Aug 26, 2018 Primary Care Physician: Satnam Flower M.D. Attending Physician: Sumanth Berger MD Specialist/Consultants Involve: Daniel King Jr Discharge Summary PROCEDURES PERFORMED DURING STAY: PEG tube placement. ADMITTING DIAGNOSES: 1. Metabolic encephalopathy, likely secondary to hyponatremia. 2. Hypernatremia. DISCHARGE DIAGNOSES: 1. Dysphagia due to CVA 2. Anemia 3. Metabolic encephalopathy, resolved COMPLICATIONS/CHIEF COMPLAINT: Hypernatremia, Metabolic Encephalopathy, Dysphagia. HISTORY OF PRESENT ILLNESS: Patient is a 73-year-old woman with medical history significant for episodes of hypernatremia, CVA with residual dysphagia and left hemiparesis presented from the senior living with altered level of consciousness. Patient had not been feeding as well as before and was more lethargic. Patient has had decreased appetite and weight loss. CT scan of brain showed no acute changes. Her sodium was 167. HOSPITAL COURSE: Patient was admitted and started on IV fluid with D5w for the hypernatremia. Dr. King was consulted to place a PEG tube. Patient had several episodes prior of water depletion and hypernatremia. Dr. King placed the peg tube per consent and patient was started on peg feeds. Initially patient was having residuals and the tube feeds were backed off. Patient's urine output decreased and patient's feeds were increased back to recommended baseline of 50 cc/hr. Reglan was added to feeds to decrease residuals. This seemed to help and patient was discharged back to keep on feeds with reglan added to feeds. DISCHARGE MEDICATIONS: Please see below. ALLERGIES: Please see below. PHYSICAL EXAMINATION ON DISCHARGE: VITAL SIGNS: Please see below. GENERAL: Nonverbal, no distress HEENT: Atraumatic NECK: Supple. CARDIOVASCULAR EXAMINATION: Normal rate, regular rhyhytm. RESPIRATORY EXAMINATION: Clear to auscultation. ABDOMINAL EXAMINATION: Normal bowel sounds. Peg tube site without discharge, bleeding. EXTREMITIES: No lower extremity edema. SKIN: No rashes, lesions. LABORATORY DATA: Please see below. IMAGING: Head CT There is mild to moderate age related parenchymal volume loss. White matter changes are demonstrated in the subcortical, centrum semiovale and periventricular white matter consistent with small vessel white matter angiopathic gliosis. No acute findings. CXR No acute disease. PROGNOSIS: improved ACTIVITY: As tolerated. DIET: Peg tube DISCHARGE PLAN: [facility] DISPOSITION: [facility]. DISCHARGE INSTRUCTIONS: 1. Follow up with PCP at [facility] 2. Continue tube feeds jevity 1.5 nataly @50 cc/hr with 60 cc free H20 flushes every 4 hours DISCHARGE CONDITION: Stable. TIME SPENT ON DISCHARGE: Greater than 30 minutes. Discharge Medications Scheduled Aspirin (Childrens Aspirin) 81 Mg Chew, 81 MG PEG BID Carboxymethylcellulose Sodium (Refresh Tears) 0.5 % Tigre, 1 DROP OU QHS, (Reported) Levothyroxine Sodium (Synthroid) 125 Mcg Tab, 125 MCG PEG DAILY@06 Metoclopramide HCl (Metoclopramide HCl) 10 Mg/10 Ml Soln, 10 MG PEG Q8H Ramipril (Altace) 1.25 Mg Cap, 2.5 MG PEG BID Rosuvastatin (Crestor) 10 Mg Tab, 10 MG PEG DAILY Scheduled PRN (Guaifenesin/Dextromethorp 10-100 mg/5Ml) 1 Syp Syp, 10 ML PO Q4H PRN for COUGH, (Reported) Acetaminophen (Acetaminophen) 160 Mg/5 Ml Jina, 650 MG GT Q4HP PRN for PAIN OR FEVER Bisacodyl (Dulcolax) 10 Mg Sup, 10 MG SC DAILY PRN for CONSTIPATION, (Reported) Sodium Phosphate/Biphosphate (Fleet Enema 7-19 gm/118Ml) 1 Jackie Jackie, 1 EA SC DAILY PRN for CONSTIPATION, (Reported) Allergies Coded Allergies: No Known Drug Allergy (Verified Allergy, Unknown, 10/14/12) GME ATTESTATION GME ATTESTATION My faculty preceptor for this patient encounter was physically present during the encounter and was fully available. All aspects of the patient interview, examination, medical decision making process, and medical care plan development were reviewed and approved by the faculty preceptor. The faculty preceptor is aware and concurs with the plan as stated in the body of this note and will attest to such by his/her cosignature. GLENNY CARLSON DO Sep 15, 2018 12:01
== END 2018-08-26 12:58 | DRG 640 ==
LOC: EDBD 19:11 → M ED 19:11 → M ED INP 23:14 → M PCU 08-19 15:41
PROVIDERS: ADMIT Hospitalist; ATTEND Family Medicine
PROC: 0DH64UZ Insertion of Feeding Device into Stomach, Percutaneous Endoscopic Approach (ICD-10-PCS; principal; 2018-08-21 08:30)
DX: E87.0 Hyperosmolality and hypernatremia (principal); G93.41 Metabolic encephalopathy; I69.954 Hemiplegia and hemiparesis following unspecified cerebrovascular disease affecting left non-dominant side; E46 Unspecified protein-calorie malnutrition; I69.391 Dysphagia following cerebral infarction; Z79.899 Other long term (current) drug therapy; Z79.82 Long term (current) use of aspirin; F32.9 Major depressive disorder, single episode, unspecified; I10 Essential (primary) hypertension; E03.9 Hypothyroidism, unspecified; E78.5 Hyperlipidemia, unspecified; D64.9 Anemia, unspecified

== ENCOUNTER → 2018-10-15 | Outpatient (REF) | payer MEDICARE ==
[2018-10-15 09:24] LABS: BASO % 0.5 % (0.0-1.0); EOS # 0.1 10^3/uL (0.0-0.50); EOS % 1.4 % (0.0-3.0); HEMATOCRIT 33.8 % (36.0-47.0); HEMOGLOBIN 10.1 g/dl (12.0-15.5); LYMPH # 1.8 10^3/uL (1.5-4.5); LYMPH % 31.4 % (24.0-44.0); MEAN CORPUSCULAR HEMOGLOBIN 25.5 pg (27.0-33.0); MEAN CORPUSCULAR HGB CONC 29.9 g/dl (32.0-36.5); MEAN CORPUSCULAR VOLUME 85.4 fl (80.0-96.0); MONO # 0.4 10^3/uL (0.0-0.8); MONO % 7.9 % (0.0-5.0); NEUTROPHILS # 3.3 10^3/uL (1.8-7.7); NEUTROPHILS % 58.4 % (36.0-66.0); PLATELET COUNT, AUTOMATED 241 10^3/uL (150-450); RED BLOOD COUNT 3.96 10^6/uL (4.00-5.40); WHITE BLOOD COUNT 5.6 10^3/uL (4.0-10.0)
[2018-10-15 09:40] LABS: ALBUMIN 2.1 GM/DL (3.2-5.2); ALT/SGPT 423 U/L (12-78); BILIRUBIN,TOTAL 0.3 MG/DL (0.2-1.0); BLOOD UREA NITROGEN 18 MG/DL (7-18); CALCIUM LEVEL 8.2 MG/DL (8.8-10.2); CARBON DIOXIDE LEVEL 27 MEQ/L (21-32); CHLORIDE LEVEL 105 MEQ/L (98-107); CREATININE FOR GFR 0.66 MG/DL (0.55-1.30); GLOMERULAR FILTRATION RATE > 60.0 (>39); GLUCOSE, FASTING 149 MG/DL (70-100); MAGNESIUM LEVEL 1.9 MG/DL (1.8-2.4); POTASSIUM SERUM 3.8 MEQ/L (3.5-5.1); SODIUM LEVEL 139 MEQ/L (136-145); TOTAL PROTEIN 7.1 GM/DL (6.4-8.2)
== END ==
LOC: SKLAB5 08:04
PROVIDERS: ATTEND Family Medicine
DX: N18.9 Chronic kidney disease, unspecified (principal); E03.9 Hypothyroidism, unspecified

== ENCOUNTER → 2018-12-10 | Outpatient (REF) | payer MEDICARE ==
[~2018-12-10] MED LIST changes: +ASPI-286 PEG; -ASPI1TAB PO; +ASPI81TA26 PO; -CHIL81CH2 PEG; +CRES10TA PEG; -CRES10TA32 PEG; +SENN1TAB41 PO; -SENN8.6T7 PO
[2018-12-10 07:28] LABS: BASO % 0.3 % (0.0-1.0); EOS # 0.1 10^3/uL (0.0-0.50); EOS % 1.6 % (0.0-3.0); HEMATOCRIT 35.7 % (36.0-47.0); HEMOGLOBIN 11.1 g/dl (12.0-15.5); LYMPH # 2.2 10^3/uL (1.5-4.5); MEAN CORPUSCULAR HEMOGLOBIN 25.2 pg (27.0-33.0); MEAN CORPUSCULAR HGB CONC 31.1 g/dl (32.0-36.5); MEAN CORPUSCULAR VOLUME 81.1 fl (80.0-96.0); MONO # 0.5 10^3/uL (0.0-0.8); MONO % 7.4 % (0.0-5.0); NEUTROPHILS # 4.4 10^3/uL (1.8-7.7); NEUTROPHILS % 60.3 % (36.0-66.0); PLATELET COUNT, AUTOMATED 226 10^3/uL (150-450); WHITE BLOOD COUNT 7.3 10^3/uL (4.0-10.0)
[2018-12-10 07:49] LABS: ALBUMIN 2.4 GM/DL (3.2-5.2); ALT/SGPT 283 U/L (12-78); BILIRUBIN,TOTAL 0.4 MG/DL (0.2-1.0); BLOOD UREA NITROGEN 19 MG/DL (7-18); CALCIUM LEVEL 8.2 MG/DL (8.8-10.2); CARBON DIOXIDE LEVEL 30 MEQ/L (21-32); CHLORIDE LEVEL 102 MEQ/L (98-107); CHOLESTEROL LEVEL 93 MG/DL (<200); CHOLESTEROL RISK RATIO 1.722 (<5); CREATININE FOR GFR 0.73 MG/DL (0.55-1.30); GLOMERULAR FILTRATION RATE > 60.0 (>39); GLUCOSE, FASTING 152 MG/DL (70-100); HDL CHOLESTEROL 54 MG/DL (>40); LDL CHOLESTEROL 24 MG/DL (<100); NON-HDL-C 39 MG/DL; POTASSIUM SERUM 4.1 MEQ/L (3.5-5.1); SODIUM LEVEL 139 MEQ/L (136-145); TOTAL PROTEIN 6.9 GM/DL (6.4-8.2); TRIGLYCERIDES LEVEL 73 MG/DL (<150)
== END ==
LOC: SKLAB5 08:36
PROVIDERS: ATTEND Family Medicine
DX: N18.9 Chronic kidney disease, unspecified (principal); G20 Parkinson's disease

== ENCOUNTER → 2019-01-15 | Outpatient (REF) | payer MEDICARE ==
[2019-01-15 07:52] LABS: HEMATOCRIT 35.7 % (36.0-47.0); MEAN CORPUSCULAR HEMOGLOBIN 24.1 pg (27.0-33.0); MEAN CORPUSCULAR HGB CONC 30.8 g/dl (32.0-36.5); MEAN CORPUSCULAR VOLUME 78.1 fl (80.0-96.0); PLATELET COUNT, AUTOMATED 201 10^3/uL (150-450); RED BLOOD COUNT 4.57 10^6/uL (4.00-5.40); WHITE BLOOD COUNT 5.6 10^3/uL (4.0-10.0)
[2019-01-15 08:21] LABS: BLOOD UREA NITROGEN 17 MG/DL (7-18); CALCIUM LEVEL 8.8 MG/DL (8.8-10.2); CARBON DIOXIDE LEVEL 30 MEQ/L (21-32); CHLORIDE LEVEL 102 MEQ/L (98-107); GLOMERULAR FILTRATION RATE > 60.0 (>39); GLUCOSE, FASTING 125 MG/DL (70-100); POTASSIUM SERUM 4.3 MEQ/L (3.5-5.1); SODIUM LEVEL 138 MEQ/L (136-145)
== END ==
LOC: SKLAB5 12:11
PROVIDERS: ATTEND Family Medicine
DX: E03.9 Hypothyroidism, unspecified (principal); G20 Parkinson's disease; Z97.8 Presence of other specified devices

== ENCOUNTER → 2019-04-15 | Outpatient (REF) | payer MEDICARE ==
[~2019-04-15] MED LIST changes: +JEVILIQ7 EN; +RAMI1CAP22 EN; +SENN1TAB8 EN; +TYLETAB14 PEG
[2019-04-15 08:19] LABS: HEMATOCRIT 36.3 % (36.0-47.0); HEMOGLOBIN 11.4 g/dl (12.0-15.5); MEAN CORPUSCULAR HEMOGLOBIN 25.6 pg (27.0-33.0); MEAN CORPUSCULAR HGB CONC 31.4 g/dl (32.0-36.5); MEAN CORPUSCULAR VOLUME 81.4 fl (80.0-96.0); PLATELET COUNT, AUTOMATED 198 10^3/uL (150-450); RED BLOOD COUNT 4.46 10^6/uL (4.00-5.40); WHITE BLOOD COUNT 5.5 10^3/uL (4.0-10.0)
[2019-04-15 08:52] LABS: BLOOD UREA NITROGEN 18 MG/DL (7-18); CALCIUM LEVEL 8.5 MG/DL (8.8-10.2); CARBON DIOXIDE LEVEL 30 MEQ/L (21-32); CHLORIDE LEVEL 103 MEQ/L (98-107); CREATININE FOR GFR 0.75 MG/DL (0.55-1.30); GLOMERULAR FILTRATION RATE > 60.0 (>39); GLUCOSE, FASTING 130 MG/DL (70-100); POTASSIUM SERUM 4.7 MEQ/L (3.5-5.1); SODIUM LEVEL 138 MEQ/L (136-145)
== END ==
LOC: EDBD → SKLAB5 07:57
PROVIDERS: ATTEND Family Medicine
DX: N18.9 Chronic kidney disease, unspecified (principal); E03.9 Hypothyroidism, unspecified

== ENCOUNTER 2019-07-09 22:17 | Emergency (ER) | payer MEDICARE ==
[~2019-07-09] VITALS: Ht 162.6 cm; Wt 73.5 kg
[~2019-07-09 22:17] MED LIST changes: -JEVILIQ7 EN; -RAMI1CAP22 EN; -SENN1TAB8 EN; -TYLETAB14 PEG
[2019-07-10] MEDS ORDERED: ACETAMINOPHEN/CODEINE 300MG/30MG 12.5 ML UDC PEG ONE
[2019-07-10] MEDS ORDERED: SENN1TAB8 EN (01:03)
[2019-07-10] MEDS ORDERED: RAMI1CAP22 EN (01:03)
[2019-07-10] MEDS ORDERED: JEVILIQ7 EN (01:03)
[2019-07-10] MEDS ORDERED: TYLETAB14 PEG (01:06)
[2019-07-10 02:00] VITALS: BP 166/87
== END 2019-07-10 02:02 | disposition home or self-care (01) ==
LOC: M ED 22:17
DX: S42.202A Unspecified fracture of upper end of left humerus, initial encounter for closed fracture (principal); X58.XXXA Exposure to other specified factors, initial encounter; Y92.129 Unspecified place in nursing home as the place of occurrence of the external cause; Y93.F9 Activity, other caregiving; Y99.9 Unspecified external cause status; Z93.1 Gastrostomy status; I42.9 Cardiomyopathy, unspecified; R13.10 Dysphagia, unspecified; Z86.73 Personal history of transient ischemic attack (TIA), and cerebral infarction without residual deficits; G20 Parkinson's disease; E03.9 Hypothyroidism, unspecified; F03.90 Unspecified dementia, unspecified severity, without behavioral disturbance, psychotic disturbance, mood disturbance, and anxiety; E78.5 Hyperlipidemia, unspecified; F32.9 Major depressive disorder, single episode, unspecified; Z79.82 Long term (current) use of aspirin; Z79.899 Other long term (current) drug therapy

== ENCOUNTER → 2019-07-09 | Outpatient (REF) | payer MEDICARE ==
--- NOTE | 2019-07-09 22:24 | REPVR ---
PROCEDURE INFORMATION: Exam: XR Left Shoulder Exam date and time: 07/09/19 (9:27pm) Age: 74 years old Clinical indication: Recent fall. Initial encounter. Left arm / shoulder injury. TECHNIQUE: Imaging protocol: XR Left shoulder Views: 3 views COMPARISON: No relevant prior studies available FINDINGS: Bones/joints: The left shoulder shows satisfactory alignment, with no dislocation. Slightly distracted, oblique fracture of the proximal shaft of the left humerus. Soft tissues: Unremarkable. IMPRESSION: No significant pathology at the left shoulder joint. No joint dislocation. Slightly distracted, slightly displaced, oblique fracture of the proximal shaft of the left humerus. Electronically signed by: Risa Bolden On 07/09/2019 22:24:20 PM
--- NOTE | 2019-07-09 22:36 | REPVR ---
PROCEDURE INFORMATION: Exam: XR Left Humerus Exam date and time: 07/09/19 (9:18pm) Age: 74 years old Clinical indication: Recent fall. Initial encounter. Left arm / left shoulder injury. injury TECHNIQUE: Imaging protocol: XR Left humerus Views: 2 or more views COMPARISON: No relevant prior studies available FINDINGS: Acute slightly displaced comminuted oblique fracture of the middle 1/3 of the left humerus. The fracture is approx. 8-9 cm in overall length. The fracture is centered approx. 10 cm below the left humeral neck level. A bone fragment (17 x 5 mm size) projects in the soft tissues medial to the left humeral shaft, at the inferior aspect of the fracture. The visualized left lung is clear. The left shoulder and left A-C joints show degenerative changes. No dislocation at the left shoulder. IMPRESSION: Acute slightly displaced oblique fracture of the middle 1/3 of the left humerus. The fracture is approx. 8-9 cm in overall length. No dislocation at the left shoulder. See additional comments above. Electronically signed by: Risa Bolden On 07/09/2019 22:36:12 PM
== END ==
LOC: SKLAB5 19:54
PROVIDERS: ATTEND Family Medicine
DX: S42.202A Unspecified fracture of upper end of left humerus, initial encounter for closed fracture (principal); X58.XXXA Exposure to other specified factors, initial encounter; Y92.129 Unspecified place in nursing home as the place of occurrence of the external cause

== ENCOUNTER → 2019-07-15 | Outpatient (REF) | payer MEDICARE ==
[~2019-07-15] MED LIST changes: +JEVILIQ7 EN; +RAMI1CAP22 EN; +SENN1TAB8 EN; +TYLETAB14 PEG
[2019-07-15 09:27] LABS: HEMATOCRIT 30.3 % (36.0-47.0); HEMOGLOBIN 9.3 g/dl (12.0-15.5); MEAN CORPUSCULAR HEMOGLOBIN 26.1 pg (27.0-33.0); MEAN CORPUSCULAR HGB CONC 30.7 g/dl (32.0-36.5); MEAN CORPUSCULAR VOLUME 84.9 fl (80.0-96.0); PLATELET COUNT, AUTOMATED 193 10^3/uL (150-450); RED BLOOD COUNT 3.57 10^6/uL (4.00-5.40); WHITE BLOOD COUNT 7.2 10^3/uL (4.0-10.0)
[2019-07-15 09:55] LABS: BLOOD UREA NITROGEN 23 MG/DL (7-18); CALCIUM LEVEL 8.5 MG/DL (8.8-10.2); CARBON DIOXIDE LEVEL 30 MEQ/L (21-32); CHLORIDE LEVEL 102 MEQ/L (98-107); CREATININE FOR GFR 0.78 MG/DL (0.55-1.30); GLOMERULAR FILTRATION RATE > 60.0 (>39); GLUCOSE, FASTING 135 MG/DL (70-100); POTASSIUM SERUM 4.2 MEQ/L (3.5-5.1); SODIUM LEVEL 137 MEQ/L (136-145)
== END ==
LOC: EDBD → SKLAB5 07:48
PROVIDERS: ATTEND Family Medicine
DX: E03.9 Hypothyroidism, unspecified (principal); G20 Parkinson's disease

== ENCOUNTER → 2019-07-23 | Outpatient (REF) | payer MEDICARE ==
[2019-07-23 07:49] LABS: HEMATOCRIT 31.3 % (36.0-47.0); HEMOGLOBIN 9.7 g/dl (12.0-15.5); MEAN CORPUSCULAR HEMOGLOBIN 26.4 pg (27.0-33.0); MEAN CORPUSCULAR VOLUME 85.3 fl (80.0-96.0); PLATELET COUNT, AUTOMATED 249 10^3/uL (150-450); RED BLOOD COUNT 3.67 10^6/uL (4.00-5.40); WHITE BLOOD COUNT 5.1 10^3/uL (4.0-10.0)
== END ==
LOC: SKLAB5 10:09
PROVIDERS: ATTEND Family Medicine
DX: D64.9 Anemia, unspecified (principal)

== ENCOUNTER → 2019-07-26 | Outpatient (REF) | payer MEDICARE ==
[2019-07-26 21:13] LABS: HEMATOCRIT 27.9 % (36.0-47.0); HEMOGLOBIN 8.2 g/dl (12.0-15.5); MEAN CORPUSCULAR HEMOGLOBIN 25.6 pg (27.0-33.0); MEAN CORPUSCULAR HGB CONC 29.4 g/dl (32.0-36.5); MEAN CORPUSCULAR VOLUME 87.2 fl (80.0-96.0); PLATELET COUNT, AUTOMATED 248 10^3/uL (150-450); WHITE BLOOD COUNT 14.2 10^3/uL (4.0-10.0)
[2019-07-26 22:33] LABS: BLOOD UREA NITROGEN 29 MG/DL (7-18); CALCIUM LEVEL 7.9 MG/DL (8.8-10.2); CARBON DIOXIDE LEVEL 25 MEQ/L (21-32); CHLORIDE LEVEL 106 MEQ/L (98-107); CREATININE FOR GFR 0.85 MG/DL (0.55-1.30); GLOMERULAR FILTRATION RATE > 60.0 (>39); GLUCOSE, FASTING 218 MG/DL (70-100); POTASSIUM SERUM 4.2 MEQ/L (3.5-5.1); SODIUM LEVEL 140 MEQ/L (136-145)
== END ==
LOC: SKLAB5 20:37
PROVIDERS: ATTEND Family Medicine
DX: Z79.899 Other long term (current) drug therapy (principal)

== ENCOUNTER → 2019-07-27 | Outpatient (REF) | payer MEDICARE ==
[2019-07-27 06:46] LABS: HEMATOCRIT 21.1 % (36.0-47.0)
[2019-07-27 06:48] LABS: HEMOGLOBIN 6.5 g/dl (12.0-15.5)
== END ==
LOC: SKLAB5 03:49
PROVIDERS: ATTEND Family Medicine
DX: K92.2 Gastrointestinal hemorrhage, unspecified (principal)

== ENCOUNTER → 2019-07-27 | Outpatient (REF) | payer MEDICARE | LOC: SKLAB5 08:59 | PROVIDERS: ATTEND Family Medicine | DX: D64.9 Anemia, unspecified (principal) ==

== ENCOUNTER 2019-07-28 07:48 | Outpatient (CLI) | payer MEDICARE ==
[~2019-07-28] VITALS: Ht 162.6 cm; Wt 73.5 kg
[2019-07-28] VITALS (8 sets, daily range): BP systolic 104–122; BP diastolic 66–80
[2019-07-28] MEDS ORDERED: ACETAMINOPHEN TAB 650MG DOSE (2X325MG) FT ONE (09:00)
[2019-07-28] MEDS ORDERED: FUROSEMIDE 40 MG/4 ML VIAL (J1940) IV ONE (11:00)
== END 2019-07-28 16:00 | disposition home or self-care (01) ==
LOC: M INFU 07:48
PROVIDERS: ATTEND Nurse Practitioner Adult Health
DX: D64.9 Anemia, unspecified (principal)
CPT/HCPCS: 36430; 86920; 96374; J1940; P9016; P9040

== ENCOUNTER → 2019-07-30 | Outpatient (REF) | payer MEDICARE ==
[2019-07-30 07:18] LABS: HEMATOCRIT 30.4 % (36.0-47.0); HEMOGLOBIN 9.9 g/dl (12.0-15.5); MEAN CORPUSCULAR HEMOGLOBIN 29.1 pg (27.0-33.0); MEAN CORPUSCULAR HGB CONC 32.6 g/dl (32.0-36.5); MEAN CORPUSCULAR VOLUME 89.4 fl (80.0-96.0); PLATELET COUNT, AUTOMATED 182 10^3/uL (150-450); WHITE BLOOD COUNT 7.4 10^3/uL (4.0-10.0)
[2019-07-30 07:43] LABS: BLOOD UREA NITROGEN 20 MG/DL (7-18); CALCIUM LEVEL 7.8 MG/DL (8.8-10.2); CARBON DIOXIDE LEVEL 29 MEQ/L (21-32); CHLORIDE LEVEL 104 MEQ/L (98-107); CREATININE FOR GFR 0.79 MG/DL (0.55-1.30); GLOMERULAR FILTRATION RATE > 60.0 (>39); GLUCOSE, FASTING 166 MG/DL (70-100); POTASSIUM SERUM 4.3 MEQ/L (3.5-5.1); SODIUM LEVEL 140 MEQ/L (136-145)
== END ==
LOC: SKLAB5 07:51
PROVIDERS: ATTEND Family Medicine
DX: K92.2 Gastrointestinal hemorrhage, unspecified (principal)

== ENCOUNTER → 2019-08-03 | Outpatient (CLI) | payer MEDICARE ==
--- NOTE | 2019-08-03 09:47 | REP ---
Left upper extremity duplex venous sonography: History: Fracture of the left arm. Findings: The distal arm veins could not be seen due to cast and Rafal wrap material associated with the patient's fracture. However, the left internal jugular, left subclavian, proximal cephalic vein are seen to be anechoic on two-dimensional scanning, compressible, and showing normal Doppler flow. Impression: Somewhat limited study due to cast material and Rafal wrap. However, no left upper extremity venous ultrasound evidence of thrombosis seen. Electronically Signed by Franco Eduardo MD 08/03/2019 09:56 A
== END ==
LOC: M RAD 08:46
PROVIDERS: ATTEND Family Medicine
DX: R60.9 Edema, unspecified (principal)

== ENCOUNTER → 2019-08-03 | Outpatient (REF) | payer MEDICARE ==
--- NOTE | 2019-08-03 09:12 | REP ---
Left hand: Two views. History: Fractured left arm. Findings: There is diffuse osteoporosis. The hand is imaged with flexion contractures of all of the digits producing overlap. No fracture is appreciated. There is osteoarthritis at the radiocarpal articulation. There is considerable swelling along the dorsal and ulnar aspect of the hand and wrist and distal forearm. Impression: Soft-tissue swelling fairly prominent. Less than optimal positioning due to flexion contractures. Osteoporosis. Osteoarthritis. No fracture visible. Electronically Signed by Franco Eduardo MD 08/03/2019 09:04 A
--- NOTE | 2019-08-03 09:14 | REP ---
Left wrist series: Two views. History: Fractured left arm. Findings: AP and lateral views of the left wrist show dorsal and ulnar aspect of soft tissue swelling. Diffuse osteoporosis and wrist joint osteoarthritic changes are noted. No fractures seen. There is degenerative widening of the navicular lunate interval. Impression: Soft-tissue swelling. No fracture visible. Electronically Signed by Franco Eduardo MD 08/03/2019 09:06 A
--- NOTE | 2019-08-03 09:16 | REP ---
Left shoulder: Two views. History: Fractured left arm. Comparison study July 09, 2019. Findings: There is some a apex medial angulation at the proximal humeral diaphyseal fracture as seen previously. The glenohumeral and acromioclavicular joints remain normally aligned. There is AC joint and acromion process spurring. Impression: Known fracture in the proximal humeral diaphysis. Osteoarthritic changes at the AC joint. Acromion process spurring. Unchanged. Electronically Signed by Franco Eduardo MD 08/03/2019 09:07 A
--- NOTE | 2019-08-03 15:31 | REP ---
Left elbow: Two views. History: Fractured left arm. Findings: AP and lateral views of the left elbow demonstrate the bottom edge of the displaced humeral diaphyseal fracture at the upper margin of the field of view on the lateral radiograph. There is soft tissue swelling and diffuse osteoporosis. Minimal ulnar spurring is seen at the elbow. No elbow fracture is appreciated. Impression: Humeral diaphyseal fracture seen. No elbow fracture noted. Spurring at the elbow. Electronically Signed by Franco Eduardo MD 08/03/2019 09:05 A
== END ==
LOC: SKLAB5 03:02
PROVIDERS: ATTEND Family Medicine
DX: S42.302A Unspecified fracture of shaft of humerus, left arm, initial encounter for closed fracture (principal); X58.XXXA Exposure to other specified factors, initial encounter; Y92.9 Unspecified place or not applicable; M19.032 Primary osteoarthritis, left wrist; M19.042 Primary osteoarthritis, left hand; M19.012 Primary osteoarthritis, left shoulder; I10 Essential (primary) hypertension; E11.9 Type 2 diabetes mellitus without complications; R60.9 Edema, unspecified

== ENCOUNTER → 2019-08-06 | Outpatient (REF) | payer MEDICARE | LOC: SKLAB5 12:25 | PROVIDERS: ATTEND Family Medicine | DX: S42.302A Unspecified fracture of shaft of humerus, left arm, initial encounter for closed fracture (principal); Z79.899 Other long term (current) drug therapy ==

== ENCOUNTER → 2019-10-14 | Outpatient (REF) | payer MEDICARE ==
[2019-10-14 08:12] LABS: HEMATOCRIT 39.3 % (36.0-47.0); HEMOGLOBIN 12.2 g/dl (12.0-15.5); MEAN CORPUSCULAR HEMOGLOBIN 25.9 pg (27.0-33.0); MEAN CORPUSCULAR VOLUME 83.4 fl (80.0-96.0); PLATELET COUNT, AUTOMATED 139 10^3/uL (150-450); RED BLOOD COUNT 4.71 10^6/uL (4.00-5.40); WHITE BLOOD COUNT 5.9 10^3/uL (4.0-10.0)
== END ==
LOC: SKLAB5 08:30
PROVIDERS: ATTEND Family Medicine
DX: D64.9 Anemia, unspecified (principal)

== ENCOUNTER → 2019-10-21 | Outpatient (REF) | payer MEDICARE ==
[2019-10-21 09:34] LABS: HEMATOCRIT 38.5 % (36.0-47.0); HEMOGLOBIN 11.9 g/dl (12.0-15.5); MEAN CORPUSCULAR HEMOGLOBIN 25.7 pg (27.0-33.0); MEAN CORPUSCULAR HGB CONC 30.9 g/dl (32.0-36.5); MEAN CORPUSCULAR VOLUME 83.2 fl (80.0-96.0); PLATELET COUNT, AUTOMATED 134 10^3/uL (150-450); RED BLOOD COUNT 4.63 10^6/uL (4.00-5.40); WHITE BLOOD COUNT 6.5 10^3/uL (4.0-10.0)
== END ==
LOC: SKLAB5 07:58
PROVIDERS: ATTEND Family Medicine
DX: D69.6 Thrombocytopenia, unspecified (principal)

== ENCOUNTER → 2019-10-28 | Outpatient (REF) | payer MEDICARE ==
[~2019-10-28] MED LIST changes: +SENN-80 EN; -SENN1TAB8 EN
[2019-10-28 09:40] LABS: HEMATOCRIT 36.6 % (36.0-47.0); MEAN CORPUSCULAR HEMOGLOBIN 24.9 pg (27.0-33.0); MEAN CORPUSCULAR HGB CONC 30.1 g/dl (32.0-36.5); MEAN CORPUSCULAR VOLUME 82.8 fl (80.0-96.0); PLATELET COUNT, AUTOMATED 159 10^3/uL (150-450); RED BLOOD COUNT 4.42 10^6/uL (4.00-5.40); WHITE BLOOD COUNT 4.8 10^3/uL (4.0-10.0)
== END ==
LOC: SKLAB5 07:52
PROVIDERS: ATTEND Family Medicine
DX: D64.9 Anemia, unspecified (principal)

== ENCOUNTER → 2019-11-24 | Outpatient (REF) | LOC: SKLAB5 08:52 | PROVIDERS: ATTEND Internal Medicine | DX: Z03.818 Encounter for observation for suspected exposure to other biological agents ruled out (principal) ==

== ENCOUNTER → 2019-12-16 | Outpatient (REF) | payer MEDICARE ==
[2019-12-16 09:16] LABS: BASO % 0.2 % (0.0-1.0); EOS # 0.1 10^3/uL (0.0-0.5); EOS % 2.1 % (0.0-3.0); HEMATOCRIT 42.8 % (36.0-47.0); LYMPH # 1.7 10^3/uL (1.5-5.0); LYMPH % 33.7 % (24.0-44.0); MEAN CORPUSCULAR HEMOGLOBIN 24.8 pg (27.0-33.0); MEAN CORPUSCULAR HGB CONC 30.4 g/dl (32.0-36.5); MEAN CORPUSCULAR VOLUME 81.5 fl (80.0-96.0); MONO # 0.5 10^3/uL (0.0-0.8); MONO % 9.3 % (0.0-5.0); NEUTROPHILS # 2.8 10^3/uL (1.5-8.5); NEUTROPHILS % 54.5 % (36.0-66.0); PLATELET COUNT, AUTOMATED 131 10^3/uL (150-450); RED BLOOD COUNT 5.25 10^6/uL (4.00-5.40); WHITE BLOOD COUNT 5.1 10^3/uL (4.0-10.0)
[2019-12-16 09:54] LABS: BLOOD UREA NITROGEN 21 MG/DL (7-18); CALCIUM LEVEL 8.7 MG/DL (8.8-10.2); CARBON DIOXIDE LEVEL 32 MEQ/L (21-32); CHLORIDE LEVEL 104 MEQ/L (98-107); CHOLESTEROL LEVEL 94 MG/DL (<200); CREATININE FOR GFR 0.72 MG/DL (0.55-1.30); GLOMERULAR FILTRATION RATE > 60.0 (>39); GLUCOSE, FASTING 95 MG/DL (70-100); HDL CHOLESTEROL 58 MG/DL (>40); LDL CHOLESTEROL 25 MG/DL (<100); NON-HDL-C 36 MG/DL; POTASSIUM SERUM 4.2 MEQ/L (3.5-5.1); SODIUM LEVEL 143 MEQ/L (136-145); TRIGLYCERIDES LEVEL 55 MG/DL (<150)
== END ==
LOC: SKLAB5 08:14
PROVIDERS: ATTEND Family Medicine
DX: G20 Parkinson's disease (principal); E03.9 Hypothyroidism, unspecified

== ENCOUNTER → 2020-03-16 | Outpatient (REF) | payer MEDICARE ==
[~2020-03-16] MED LIST changes: +ASPI-546 PO; -ASPI1TAB15 PO
[2020-03-16 11:01] LABS: BASO % 0.4 % (0.0-1.0); EOS # 0.2 10^3/uL (0.0-0.5); EOS % 3.2 % (0.0-3.0); HEMATOCRIT 39.1 % (36.0-47.0); LYMPH # 1.7 10^3/uL (1.5-5.0); LYMPH % 33.1 % (24.0-44.0); MEAN CORPUSCULAR HEMOGLOBIN 26.1 pg (27.0-33.0); MEAN CORPUSCULAR HGB CONC 30.7 g/dl (32.0-36.5); MONO # 0.4 10^3/uL (0.0-0.8); MONO % 8.4 % (0.0-5.0); NEUTROPHILS # 2.8 10^3/uL (1.5-8.5); NEUTROPHILS % 54.7 % (36.0-66.0); PLATELET COUNT, AUTOMATED 198 10^3/uL (150-450)
[2020-03-16 11:30] LABS: BLOOD UREA NITROGEN 19 MG/DL (7-18); CALCIUM LEVEL 8.7 MG/DL (8.8-10.2); CARBON DIOXIDE LEVEL 30 MEQ/L (21-32); CHLORIDE LEVEL 103 MEQ/L (98-107); CREATININE FOR GFR 0.71 MG/DL (0.55-1.30); GLOMERULAR FILTRATION RATE > 60.0 (>39); GLUCOSE, FASTING 131 MG/DL (70-100); POTASSIUM SERUM 4.1 MEQ/L (3.5-5.1); SODIUM LEVEL 138 MEQ/L (136-145)
== END ==
LOC: EDBD → SKLAB5 06:44
PROVIDERS: ATTEND Internal Medicine
DX: G20 Parkinson's disease (principal); Z93.1 Gastrostomy status

== ENCOUNTER 2020-03-22 11:48 | Emergency (ER) | payer MEDICARE, MEDICAID ==
[~2020-03-22] VITALS: Ht 162.6 cm; Wt 79.2 kg
[2020-03-22 12:29] LABS: BASO % 0.4 % (0.0-1.0); EOS # 0.2 10^3/uL (0.0-0.5); EOS % 3.4 % (0.0-3.0); HEMATOCRIT 37.7 % (36.0-47.0); HEMOGLOBIN 11.7 g/dl (12.0-15.5); LYMPH % 35.8 % (24.0-44.0); MEAN CORPUSCULAR HEMOGLOBIN 26.2 pg (27.0-33.0); MEAN CORPUSCULAR VOLUME 84.3 fl (80.0-96.0); MONO # 0.7 10^3/uL (0.0-0.8); NEUTROPHILS # 2.7 10^3/uL (1.5-8.5); NEUTROPHILS % 48.2 % (36.0-66.0); PLATELET COUNT, AUTOMATED 178 10^3/uL (150-450); RED BLOOD COUNT 4.47 10^6/uL (4.00-5.40); WHITE BLOOD COUNT 5.7 10^3/uL (4.0-10.0)
[2020-03-22 12:40] LABS: INR 0.95; PROTHROMBIN TIME 12.9 SECONDS (11.8-14.0)
[2020-03-22 12:48] LABS: ALBUMIN 2.8 GM/DL (3.2-5.2); ALT/SGPT 47 U/L (12-78); BILIRUBIN,DIRECT 0.1 MG/DL (0.0-0.2); BILIRUBIN,TOTAL 0.3 MG/DL (0.2-1.0); BLOOD UREA NITROGEN 19 MG/DL (7-18); CALCIUM LEVEL 8.8 MG/DL (8.8-10.2); CARBON DIOXIDE LEVEL 34 MEQ/L (21-32); CHLORIDE LEVEL 102 MEQ/L (98-107); CREATININE FOR GFR 0.71 MG/DL (0.55-1.30); GLOMERULAR FILTRATION RATE > 60.0 (>39); GLUCOSE, FASTING 133 MG/DL (70-100); LIPASE 49 U/L (73-393); POTASSIUM SERUM 4.3 MEQ/L (3.5-5.1); SODIUM LEVEL 136 MEQ/L (136-145); TOTAL PROTEIN 7.3 GM/DL (6.4-8.2)
[2020-03-22] MEDS ORDERED: ISOVUE-370 76% 100ML VIAL As Ordered ONE (13:07)
--- NOTE | 2020-03-22 13:11 | REPVR ---
PROCEDURE INFORMATION: Exam: XR Abdomen, 1 View Exam date and time: 03/22/2020 12:38 PM Age: 75 years old Clinical indication: Other: Difficulty flushing j tube; Additional info: Upright please; ? Obstruction; Difficulty flushing j-tube TECHNIQUE: Imaging protocol: XR of the abdomen. Views: Frontal supine view of the abdomen. 1 View. COMPARISON: No relevant prior studies available. FINDINGS: Gastrointestinal tract: Nonobstructive bowel gas pattern. Mild gaseous distention of the stomach. Slightly copious amount of retained colonic fecal material, which may reflect constipation. Percutaneous jejunostomy balloon projects over the right hemiabdomen. The tip of the catheter is not well delineated. Intraperitoneal space: Elevation of the right hemidiaphragm. Bones/joints: Degenerative change of the spine. IMPRESSION: 1. Percutaneous jejunostomy balloon projects over the right hemiabdomen. 2. Slightly copious amount of retained colonic fecal material. Correlate for constipation. Electronically signed by: Flavia Ya On 03/22/2020 13:11:35 PM
--- NOTE | 2020-03-22 13:58 | REPVR ---
PROCEDURE INFORMATION: Exam: CT Abdomen And Pelvis With Contrast Exam date and time: 03/22/2020 1:31 PM Age: 75 years old Clinical indication: Abdominal pain; Generalized; Patient HX: PT severely contracted due to stroke, unable to follow instructions; Additional info: Abd. Discomfort; R/O perforation TECHNIQUE: Imaging protocol: Computed tomography of the abdomen and pelvis with intravenous contrast. Radiation optimization: All CT scans at this facility use at least one of these dose optimization techniques: automated exposure control; mA and/or kV adjustment per patient size (includes targeted exams where dose is matched to clinical indication); or iterative reconstruction. Contrast material: ISOVUE 370; Contrast volume: 100 ml; Contrast route: INTRAVENOUS (IV); COMPARISON: CR PORTABLE ABDOMEN (KUB) 03/22/2020 12:33 PM FINDINGS: Diaphragm: Elevation of the right hemidiaphragm. Mild right lower lobe atelectasis. Liver: 13 mm left hepatic lobe cyst. 4 mm hypodense right hepatic lobe lesion is too small to definitively characterize, but most likely represents a cyst. Gallbladder and bile ducts: Cholelithiasis. No abnormal gallbladder distention or pericholecystic fluid. Pancreas: Normal. No ductal dilation. Spleen: Normal. No splenomegaly. Adrenals: Normal. No mass. Kidneys and ureters: 14 mm simple right renal cyst. 28 mm slightly heterogeneous hypodense interpolar left renal cortical lesion, not definitively characterized. Subcentimeter renal cortical hypodensities are too small to definitively characterize, but most likely represent cysts. Mild bilateral renal cortical atrophy. No hydronephrosis . Stomach and bowel: The rectum is markedly distended with stool. Minimal perirectal edema. Colonic diverticulosis. No evidence of acute diverticulitis. Percutaneous gastrostomy tube appears appropriately positioned. No bowel obstruction. Appendix: No evidence of appendicitis. Intraperitoneal space: Unremarkable. No free air. No significant fluid collection. 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 There is dissection flap within the descending thoracic aorta. Dissection begins distal to the left subclavian artery origin. Dissection spans a craniocaudal length of approximately 11.0 cm. There is enhancement on both sides of the flap . This dissection is favored to be chronic in nature. Mild atherosclerotic change and unfolding of the thoracic aorta. No abdominal aortic dissection. No abdominal aortic aneurysm. Mild atherosclerotic changes. Lymph nodes: Unremarkable. No enlarged lymph nodes. Bladder: Bladder is nondistended, somewhat limiting evaluation. Reproductive: The patient appears to be status post hysterectomy. Bones/joints: Degenerative change of the spine. Bilateral sacroiliac and hip joint DJD. Chronic fracture deformity of the left humerus. Soft tissues: Intramuscular lipoma within left ventral lower chest wall. Mild anasarca. IMPRESSION: 1. 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 Dissection is favored to be chronic in nature. 2. Indeterminate left renal cortical lesion. Recommend further evaluation nonemergent renal ultrasound. 3. The rectum is markedly distended with stool. Consider fecal disimpaction 4. Mild anasarca. 5. Cholelithiasis. COMMENTS: Consistent with the [employer]'s Incidental Findings Committee white paper (J Am Tabitha Radiol 2018): Any incidental renal lesion less than 1 cm or classified as too small to characterize, or any incidental cystic renal lesion characterized as simple-appearing, is likely benign. No follow-up imaging is recommended for these lesions per consensus recommendations based on imaging criteria. Electronically signed by: Flavia Ya On 03/22/2020 13:57:43 PM
[2020-03-22 15:12] VITALS: BP 139/79
--- NOTE | 2020-03-24 14:17 | ED PDOC ---
Post-Departure Follow-Up winnie vidal to call [facility] 5th floor and fax formalreport of ct abd/p for theadams r scottie. Pt w chronic appearing dissection. Unable to confirm w prior CT mlg Cindy Mills MD Mar 24, 2020 14:17
--- NOTE | 2020-04-02 13:23 | ECGEPIP ---
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
== END 2020-03-22 15:18 | disposition home or self-care (01) ==
LOC: M ED 11:48 → EDBD 11:48 → M ED 15:18
DX: K94.23 Gastrostomy malfunction (principal); I10 Essential (primary) hypertension; Z86.73 Personal history of transient ischemic attack (TIA), and cerebral infarction without residual deficits; E03.9 Hypothyroidism, unspecified; K80.20 Calculus of gallbladder without cholecystitis without obstruction; I71.2 Thoracic aortic aneurysm, without rupture; N28.89 Other specified disorders of kidney and ureter; R19.5 Other fecal abnormalities; Z79.82 Long term (current) use of aspirin; Z79.899 Other long term (current) drug therapy
CPT/HCPCS: 74018; 74177; 80048; 80076; 83690; 85025; 85610; 86850; 86900; 86901; 93005; 93041; 99284; Q9967

== ENCOUNTER → 2020-03-31 | Outpatient (CLI) | payer MEDICARE, MEDICAID ==
--- NOTE | 2020-04-13 13:33 | REP ---
RENAL SONOGRAPHY FOR LEFT RENAL CORTICAL LESION FOUND AN INCIDENTAL FINDING ON CT STUDY DATED 03/22/2020 - EVALUATE DESCENDING THORACIC AORTA FINDINGS: The proximal abdominal aorta at the diaphragmatic hiatus shows mild ectasia 2.7 x 2.8 cm in AP x transverse dimension. The remainder of the abdominal aorta is obscured by abdominal gas and its evaluation is nondiagnostic. Renal sonographic evaluation was also severely limited due to the patient immobility and inability to suspend respiration and achieve decubitus positioning. We were not able to measure the left kidney accurately. It measured 4.3 cm in width. No evidence of hydronephrosis. The right kidney could not be seen. No mass or cyst is seen. IMPRESSION: Nondiagnostic imaging of the abdominal and retroperitoneal contents. MTDD
== END ==
LOC: M RAD 08:27
PROVIDERS: ATTEND Nurse Practitioner Adult Health
DX: I71.2 Thoracic aortic aneurysm, without rupture (principal); F03.90 Unspecified dementia, unspecified severity, without behavioral disturbance, psychotic disturbance, mood disturbance, and anxiety

== ENCOUNTER → 2020-05-18 | Outpatient (REF) | payer MEDICARE, MEDICAID ==
[2020-05-18 09:09] LABS: BASO % 0.5 % (0.0-1.0); EOS # 0.2 10^3/uL (0.0-0.5); EOS % 3.3 % (0.0-3.0); HEMOGLOBIN 11.5 g/dl (12.0-15.5); LYMPH # 1.6 10^3/uL (1.5-5.0); LYMPH % 28.6 % (24.0-44.0); MEAN CORPUSCULAR HEMOGLOBIN 25.1 pg (27.0-33.0); MEAN CORPUSCULAR HGB CONC 30.3 g/dl (32.0-36.5); MONO # 0.4 10^3/uL (0.0-0.8); MONO % 7.8 % (0.0-5.0); NEUTROPHILS # 3.3 10^3/uL (1.5-8.5); NEUTROPHILS % 59.6 % (36.0-66.0); PLATELET COUNT, AUTOMATED 180 10^3/uL (150-450); RED BLOOD COUNT 4.58 10^6/uL (4.00-5.40); WHITE BLOOD COUNT 5.5 10^3/uL (4.0-10.0)
[2020-05-18 09:34] LABS: BLOOD UREA NITROGEN 19 MG/DL (7-18); CALCIUM LEVEL 8.6 MG/DL (8.8-10.2); CARBON DIOXIDE LEVEL 32 MEQ/L (21-32); CHLORIDE LEVEL 102 MEQ/L (98-107); GLOMERULAR FILTRATION RATE > 60.0 (>39); GLUCOSE, FASTING 145 MG/DL (70-100); POTASSIUM SERUM 4.1 MEQ/L (3.5-5.1); SODIUM LEVEL 137 MEQ/L (136-145)
== END ==
LOC: SKLAB5 08:23
DX: N28.9 Disorder of kidney and ureter, unspecified (principal); G20 Parkinson's disease

== ENCOUNTER → 2020-05-31 | Outpatient (REF) | payer MEDICARE, MEDICAID | LOC: SKLAB5 05-30 15:21 → EDSTATUS 07-04 12:27 | DX: Z20.828 Contact with and (suspected) exposure to other viral communicable diseases (principal) ==

== ENCOUNTER → 2020-06-07 | Outpatient (REF) | payer MEDICARE, MEDICAID | LOC: SKLAB5 08:00 | PROVIDERS: ATTEND Internal Medicine | DX: Z20.828 Contact with and (suspected) exposure to other viral communicable diseases (principal) ==

== ENCOUNTER → 2020-06-14 | Outpatient (REF) | payer MEDICARE, MEDICAID | LOC: SKLAB5 08:00 | PROVIDERS: ATTEND Internal Medicine | DX: Z20.828 Contact with and (suspected) exposure to other viral communicable diseases (principal) ==

== ENCOUNTER → 2020-06-21 | Outpatient (REF) | payer MEDICARE, MEDICAID | LOC: SKLAB5 06:50 | PROVIDERS: ATTEND Family Medicine | DX: Z20.828 Contact with and (suspected) exposure to other viral communicable diseases (principal) ==

== ENCOUNTER → 2020-06-28 | Outpatient (REF) | payer MEDICARE, MEDICAID | LOC: SKLAB5 09:18 | DX: Z20.828 Contact with and (suspected) exposure to other viral communicable diseases (principal) ==

== ENCOUNTER → 2020-07-05 | Outpatient (REF) | payer MEDICARE, MEDICAID | LOC: SKLAB5 06:09 | DX: Z53.9 Procedure and treatment not carried out, unspecified reason (principal) ==

== ENCOUNTER → 2020-07-12 | Outpatient (REF) | payer MEDICARE, MEDICAID | LOC: SKLAB5 06:38 | DX: Z20.828 Contact with and (suspected) exposure to other viral communicable diseases (principal) ==

== ENCOUNTER → 2020-07-18 | Outpatient (REF) | payer MEDICARE, MEDICAID ==
[2020-07-18 12:30] LABS: HEMATOCRIT 35.8 % (36.0-47.0); MEAN CORPUSCULAR HEMOGLOBIN 25.6 pg (27.0-33.0); MEAN CORPUSCULAR HGB CONC 30.7 g/dl (32.0-36.5); MEAN CORPUSCULAR VOLUME 83.4 fl (80.0-96.0); PLATELET COUNT, AUTOMATED 110 10^3/uL (150-450); RED BLOOD COUNT 4.29 10^6/uL (4.00-5.40); WHITE BLOOD COUNT 10.6 10^3/uL (4.0-10.0)
[2020-07-18 13:01] LABS: ALBUMIN 2.1 GM/DL (3.2-5.2); ALT/SGPT 58 U/L (12-78); BILIRUBIN,TOTAL 0.8 MG/DL (0.2-1.0); BLOOD UREA NITROGEN 32 MG/DL (7-18); CARBON DIOXIDE LEVEL 36 MEQ/L (21-32); CHLORIDE LEVEL 103 MEQ/L (98-107); GLOMERULAR FILTRATION RATE > 60.0 (>39); GLUCOSE, FASTING 165 MG/DL (70-100); NT-PRO BNP 2008 PG/ML (<450); POTASSIUM SERUM 3.9 MEQ/L (3.5-5.1); SODIUM LEVEL 139 MEQ/L (136-145); TOTAL PROTEIN 7.3 GM/DL (6.4-8.2)
--- NOTE | 2020-07-18 13:39 | REP ---
INDICATION: POSSIBLE OBSTRUCTION COMPARISON: None. TECHNIQUE: Portable supine view of the abdomen and pelvis FINDINGS: Examination is limited by positioning. Percutaneous gastrostomy tube identified. The bowel gas pattern is nonspecific and without evidence for obstruction. IMPRESSION: Nonspecific bowel gas pattern without evidence for obstruction. <Electronically signed by Osiel Leigh > 07/18/20 [id number]
== END ==
LOC: SKLAB5 11:13
DX: R53.83 Other fatigue (principal); R61 Generalized hyperhidrosis

== ENCOUNTER → 2020-07-19 | Outpatient (REF) | payer MEDICARE, MEDICAID ==
[2020-07-19 08:32] LABS: HEMATOCRIT 35.4 % (36.0-47.0); HEMOGLOBIN 10.5 g/dl (12.0-15.5); MEAN CORPUSCULAR HGB CONC 29.7 g/dl (32.0-36.5); MEAN CORPUSCULAR VOLUME 84.3 fl (80.0-96.0); PLATELET COUNT, AUTOMATED 143 10^3/uL (150-450); WHITE BLOOD COUNT 10.2 10^3/uL (4.0-10.0)
[2020-07-19 08:54] LABS: ANISOCYTOSIS 1+; ATYPICAL LYMPH 4 % (0-5); HYPOCHROMASIA 1+; LYMPHOCYTES 12 % (16-44); MONOCYTES 4 % (0-5); NEUTROPHILS 79 % (28-66); PLATELET ESTIMATE NORMAL (NORMAL); POLYCHROMASIA 1+; SCHISTOCYTES 1+
[2020-07-19 09:05] LABS: ALBUMIN 2.2 GM/DL (3.2-5.2); ALT/SGPT 58 U/L (12-78); BILIRUBIN,TOTAL 0.7 MG/DL (0.2-1.0); BLOOD UREA NITROGEN 36 MG/DL (7-18); CALCIUM LEVEL 8.2 MG/DL (8.8-10.2); CARBON DIOXIDE LEVEL 35 MEQ/L (21-32); CHLORIDE LEVEL 103 MEQ/L (98-107); CREATININE FOR GFR 0.69 MG/DL (0.55-1.30); GLOMERULAR FILTRATION RATE > 60.0 (>39); GLUCOSE, FASTING 192 MG/DL (70-100); LIPASE 71 U/L (73-393); POTASSIUM SERUM 3.7 MEQ/L (3.5-5.1); SODIUM LEVEL 143 MEQ/L (136-145); TOTAL PROTEIN 6.5 GM/DL (6.4-8.2); TROPONIN I < 0.02 NG/ML (< 0.10)
--- NOTE | 2020-07-20 | ECGEPIP ---
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
[2020-07-20 15:40] LABS: ALBUMIN % 36.9 % (55.8-66.1); ALPHA-1-GLOBULIN % 10.2 % (2.9-4.9); ALPHA-1-GLOBULINS 0.66 GM/DL (0.17-0.41); ALPHA-2-GLOBULINS % 13.9 % (7.1-11.8); BETA-1-GLOBULINS 0.46 GM/DL (0.28-0.60); BETA-2-GLOBULINS 0.59 GM/DL (0.19-0.55); BETA-2-GLOBULINS % 9.1 % (3.2-6.5); GAMMA GLOBULIN % 22.9 % (11.1-18.8)
[2020-07-20 15:41] LABS: GAMMA GLOBULINS 1.15 GM/DL (0.65-1.58)
== END ==
LOC: SKLAB5 07:08
DX: D72.829 Elevated white blood cell count, unspecified (principal); Z11.52 Encounter for screening for COVID-19; Z79.899 Other long term (current) drug therapy
CPT/HCPCS: 36415; 80053; 83036; 83690; 84165; 84484; 85025; 93005; U0003

== ENCOUNTER → 2020-07-25 | Outpatient (REF) | payer MEDICARE, MEDICAID ==
[2020-07-25 09:31] LABS: HEMATOCRIT 33.4 % (36.0-47.0); HEMOGLOBIN 10.5 g/dl (12.0-15.5); MEAN CORPUSCULAR HEMOGLOBIN 26.9 pg (27.0-33.0); MEAN CORPUSCULAR HGB CONC 31.4 g/dl (32.0-36.5); MEAN CORPUSCULAR VOLUME 85.4 fl (80.0-96.0); PLATELET COUNT, AUTOMATED 400 10^3/uL (150-450); RED BLOOD COUNT 3.91 10^6/uL (4.00-5.40); WHITE BLOOD COUNT 8.2 10^3/uL (4.0-10.0)
[2020-07-25 10:12] LABS: BLOOD UREA NITROGEN 20 MG/DL (7-18); CALCIUM LEVEL 8.5 MG/DL (8.8-10.2); CARBON DIOXIDE LEVEL 29 MEQ/L (21-32); CHLORIDE LEVEL 103 MEQ/L (98-107); CREATININE FOR GFR 0.67 MG/DL (0.55-1.30); GLOMERULAR FILTRATION RATE > 60.0 (>39); GLUCOSE, FASTING 118 MG/DL (70-100); SODIUM LEVEL 137 MEQ/L (136-145)
[2020-07-25 15:55] LABS: HEMOGLOBIN A1c 5.9 %
== END ==
LOC: SKLAB5 12:29
DX: G20 Parkinson's disease (principal); E03.9 Hypothyroidism, unspecified; Z79.899 Other long term (current) drug therapy

== ENCOUNTER → 2020-07-26 | Outpatient (REF) | payer MEDICARE, MEDICAID | LOC: SKLAB2 06:47 | PROVIDERS: ATTEND Internal Medicine | DX: Z20.822 Contact with and (suspected) exposure to COVID-19 (principal) ==

== ENCOUNTER → 2020-08-02 | Outpatient (REF) | payer MEDICARE, MEDICAID | LOC: SKLAB5 07:25 | PROVIDERS: ATTEND Internal Medicine | DX: Z20.822 Contact with and (suspected) exposure to COVID-19 (principal) ==

== ENCOUNTER → 2020-08-09 | Outpatient (REF) | payer MEDICARE, MEDICAID | LOC: SKLAB5 06:56 | PROVIDERS: ATTEND Internal Medicine | DX: Z20.822 Contact with and (suspected) exposure to COVID-19 (principal) ==

== ENCOUNTER → 2020-08-16 | Outpatient (REF) | payer MEDICARE, MEDICAID | LOC: SKLAB5 07:27 | PROVIDERS: ATTEND Internal Medicine | DX: Z20.822 Contact with and (suspected) exposure to COVID-19 (principal) ==

== ENCOUNTER → 2020-08-17 | Outpatient (REF) | payer MEDICARE, MEDICAID ==
[2020-08-17 12:05] LABS: BASO % 0.4 % (0.0-1.0); EOS # 0.3 10^3/uL (0.0-0.5); EOS % 5.4 % (0.0-3.0); HEMATOCRIT 37.1 % (36.0-47.0); HEMOGLOBIN 11.5 g/dl (12.0-15.5); LYMPH # 1.8 10^3/uL (1.5-5.0); LYMPH % 39.7 % (24.0-44.0); MEAN CORPUSCULAR HEMOGLOBIN 26.4 pg (27.0-33.0); MEAN CORPUSCULAR VOLUME 85.1 fl (80.0-96.0); MONO # 0.3 10^3/uL (0.0-0.8); MONO % 6.7 % (0.0-5.0); NEUTROPHILS # 2.2 10^3/uL (1.5-8.5); NEUTROPHILS % 47.6 % (36.0-66.0); PLATELET COUNT, AUTOMATED 185 10^3/uL (150-450); RED BLOOD COUNT 4.36 10^6/uL (4.00-5.40); WHITE BLOOD COUNT 4.6 10^3/uL (4.0-10.0)
[2020-08-17 12:46] LABS: BLOOD UREA NITROGEN 22 MG/DL (7-18); CARBON DIOXIDE LEVEL 29 MEQ/L (21-32); CHLORIDE LEVEL 102 MEQ/L (98-107); CREATININE FOR GFR 0.68 MG/DL (0.55-1.30); FERRITIN 136 NG/ML (8-252); GLOMERULAR FILTRATION RATE > 60.0 (>39); GLUCOSE, FASTING 66 MG/DL (70-100); IRON (FE) 39 UG/DL (50-170); PERCENT SATURATION 13.2 % (13.2-45.0); POTASSIUM SERUM 4.3 MEQ/L (3.5-5.1); SODIUM LEVEL 138 MEQ/L (136-145); TOTAL IRON BINDING CAPACITY 296 UG/DL (250-450)
[2020-08-17 14:11] LABS: HEMOGLOBIN A1c 5.9 %
== END ==
LOC: SKLAB5 10:32
DX: G20 Parkinson's disease (principal); D64.9 Anemia, unspecified; E11.9 Type 2 diabetes mellitus without complications

== ENCOUNTER → 2020-08-23 | Outpatient (REF) | payer MEDICARE, MEDICAID | LOC: SKLAB5 06:29 | PROVIDERS: ATTEND Internal Medicine | DX: Z20.822 Contact with and (suspected) exposure to COVID-19 (principal) ==

== ENCOUNTER → 2020-08-30 | Outpatient (REF) | payer MEDICARE, MEDICAID | LOC: SKLAB5 06:41 | PROVIDERS: ATTEND Internal Medicine | DX: Z20.822 Contact with and (suspected) exposure to COVID-19 (principal) ==

== ENCOUNTER → 2020-09-06 | Outpatient (REF) | payer MEDICARE, MEDICAID | LOC: SKLAB5 08:00 | PROVIDERS: ATTEND Internal Medicine | DX: Z20.822 Contact with and (suspected) exposure to COVID-19 (principal) ==

== ENCOUNTER → 2020-09-14 | Outpatient (REF) | payer MEDICARE, MEDICAID | LOC: SKLAB5 06:15 | PROVIDERS: ATTEND Internal Medicine | DX: Z20.822 Contact with and (suspected) exposure to COVID-19 (principal) ==

== ENCOUNTER → 2020-09-20 | Outpatient (REF) | payer MEDICARE, MEDICAID | LOC: SKLAB5 06:37 | PROVIDERS: ATTEND Internal Medicine | DX: Z20.822 Contact with and (suspected) exposure to COVID-19 (principal) ==

== ENCOUNTER → 2020-09-25 | Outpatient (REF) | payer MEDICARE, MEDICAID ==
[2020-09-25 09:47] LABS: HEMATOCRIT 39.9 % (36.0-47.0); HEMOGLOBIN 12.3 g/dl (12.0-15.5); MEAN CORPUSCULAR HEMOGLOBIN 26.3 pg (27.0-33.0); MEAN CORPUSCULAR HGB CONC 30.8 g/dl (32.0-36.5); MEAN CORPUSCULAR VOLUME 85.3 fl (80.0-96.0); PLATELET COUNT, AUTOMATED 151 10^3/uL (150-450); RED BLOOD COUNT 4.68 10^6/uL (4.00-5.40); WHITE BLOOD COUNT 7.4 10^3/uL (4.0-10.0)
[2020-09-25 10:21] LABS: BLOOD UREA NITROGEN 25 MG/DL (7-18); CALCIUM LEVEL 8.5 MG/DL (8.8-10.2); CARBON DIOXIDE LEVEL 28 MEQ/L (21-32); CHLORIDE LEVEL 104 MEQ/L (98-107); CREATININE FOR GFR 0.58 MG/DL (0.55-1.30); GLOMERULAR FILTRATION RATE > 60.0 (>39); GLUCOSE, FASTING 142 MG/DL (70-100); POTASSIUM SERUM 3.9 MEQ/L (3.5-5.1); SODIUM LEVEL 136 MEQ/L (136-145)
== END ==
LOC: SKLAB5 09:02
DX: N64.59 Other signs and symptoms in breast (principal)

== ENCOUNTER → 2020-09-27 | Outpatient (REF) | payer MEDICARE, MEDICAID | LOC: SKLAB5 07:18 | PROVIDERS: ATTEND Internal Medicine | DX: Z20.822 Contact with and (suspected) exposure to COVID-19 (principal) ==

== ENCOUNTER → 2020-10-13 | Outpatient (REF) | payer MEDICARE, MEDICAID | LOC: SKLAB5 06:54 | PROVIDERS: ATTEND Internal Medicine | DX: Z20.822 Contact with and (suspected) exposure to COVID-19 (principal) ==

== ENCOUNTER → 2020-11-16 | Outpatient (REF) | payer MEDICARE, MEDICAID ==
[2020-11-16 09:10] LABS: BASO % 0.3 % (0.0-1.0); EOS # 0.3 10^3/uL (0.0-0.5); EOS % 3.8 % (0.0-3.0); HEMOGLOBIN 12.3 g/dl (12.0-15.5); LYMPH # 1.8 10^3/uL (1.5-5.0); MEAN CORPUSCULAR HEMOGLOBIN 26.1 pg (27.0-33.0); MEAN CORPUSCULAR HGB CONC 30.8 g/dl (32.0-36.5); MEAN CORPUSCULAR VOLUME 84.9 fl (80.0-96.0); MONO # 0.5 10^3/uL (0.0-0.8); MONO % 7.1 % (2.0-8.0); NEUTROPHILS # 3.9 10^3/uL (1.5-8.5); NEUTROPHILS % 60.3 % (36.0-66.0); PLATELET COUNT, AUTOMATED 205 10^3/uL (150-450); RED BLOOD COUNT 4.71 10^6/uL (4.00-5.40); WHITE BLOOD COUNT 6.5 10^3/uL (4.0-10.0)
[2020-11-16 10:02] LABS: BLOOD UREA NITROGEN 20 MG/DL (7-18); CALCIUM LEVEL 8.7 MG/DL (8.8-10.2); CARBON DIOXIDE LEVEL 28 MEQ/L (21-32); CHLORIDE LEVEL 104 MEQ/L (98-107); CREATININE FOR GFR 0.57 MG/DL (0.55-1.30); GLOMERULAR FILTRATION RATE > 60.0 (>39); GLUCOSE, FASTING 124 MG/DL (70-100); POTASSIUM SERUM 4.5 MEQ/L (3.5-5.1); SODIUM LEVEL 133 MEQ/L (136-145)
== END ==
LOC: SKLAB5 07:04
DX: N18.9 Chronic kidney disease, unspecified (principal)

== ENCOUNTER → 2021-02-13 | Outpatient (REF) | payer MEDICARE, MEDICAID ==
[2021-02-13 09:40] LABS: BASO % 0.5 % (0.0-1.0); EOS # 0.3 10^3/uL (0.0-0.5); EOS % 4.6 % (0.0-3.0); HEMATOCRIT 39.6 % (36.0-47.0); HEMOGLOBIN 12.2 g/dl (12.0-15.5); LYMPH # 2.5 10^3/uL (1.5-5.0); MEAN CORPUSCULAR HEMOGLOBIN 26.2 pg (27.0-33.0); MEAN CORPUSCULAR HGB CONC 30.8 g/dl (32.0-36.5); MONO # 0.5 10^3/uL (0.0-0.8); MONO % 7.3 % (2.0-8.0); NEUTROPHILS % 48.3 % (36.0-66.0); PLATELET COUNT, AUTOMATED 185 10^3/uL (150-450); RED BLOOD COUNT 4.66 10^6/uL (4.00-5.40); WHITE BLOOD COUNT 6.3 10^3/uL (4.0-10.0)
[2021-02-13 10:08] LABS: HEMOGLOBIN A1c 5.8 %
[2021-02-13 10:16] LABS: ALBUMIN 2.9 GM/DL (3.2-5.2); ALT/SGPT 45 U/L (12-78); BILIRUBIN,TOTAL 0.4 MG/DL (0.2-1.0); BLOOD UREA NITROGEN 25 MG/DL (7-18); CALCIUM LEVEL 8.7 MG/DL (8.8-10.2); CARBON DIOXIDE LEVEL 30 MEQ/L (21-32); CHLORIDE LEVEL 100 MEQ/L (98-107); CREATININE FOR GFR 0.63 MG/DL (0.55-1.30); GLOMERULAR FILTRATION RATE > 60.0 (>39); GLUCOSE, FASTING 101 MG/DL (70-100); POTASSIUM SERUM 4.5 MEQ/L (3.5-5.1); SODIUM LEVEL 138 MEQ/L (136-145)
== END ==
LOC: SKLAB5 09:16
DX: E03.9 Hypothyroidism, unspecified (principal); Z79.899 Other long term (current) drug therapy

== ENCOUNTER → 2021-03-15 | Outpatient (REF) | payer MEDICARE, MEDICAID ==
[2021-03-15 13:13] LABS: HEMATOCRIT 38.3 % (36.0-47.0); MEAN CORPUSCULAR HEMOGLOBIN 26.7 pg (27.0-33.0); MEAN CORPUSCULAR HGB CONC 31.3 g/dl (32.0-36.5); MEAN CORPUSCULAR VOLUME 85.1 fl (80.0-96.0); PLATELET COUNT, AUTOMATED 159 10^3/uL (150-450); WHITE BLOOD COUNT 5.4 10^3/uL (4.0-10.0)
== END ==
LOC: SKLAB5 06:00
PROVIDERS: ATTEND Internal Medicine
DX: E11.9 Type 2 diabetes mellitus without complications (principal); D64.9 Anemia, unspecified

== ENCOUNTER → 2021-04-04 | Outpatient (CLI) | payer MEDICARE, MEDICAID ==
[~2021-04-04] MED LIST changes: +ISOVUE-370 76% 100ML VIAL As Ordered ONE
--- NOTE | 2021-04-04 17:03 | REP ---
INDICATION: LT KIDNEY CYST, ASCENDING THORACIC ANEURYSM. COMPARISON: None. TECHNIQUE: Imaging protocol: Computed tomography of the abdomen with IV contrast. Contiguous 3 mm thick axial projection images were obtained through the abdomen and pelvis. 2D sagittal and coronal reconstructions were performed. Radiation optimization: All CT scans at this facility use at least one of these dose optimization techniques: automated exposure control; mA and/or kV adjustment per patient size (includes targeted exams where dose is matched to clinical indication); or iterative reconstruction. Contrast material: ISOVUE 370; Contrast volume: 100 ml; Contrast route: INTRAVENOUS (IV). FINDINGS: Heart and lung bases: There is compressive atelectasis of the posterior basilar segments of the lower lobes of both lungs. There are no pleural effusions. The heart size is normal. There is no pericardial effusion. 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 There is no apparent involvement of the ascending thoracic aorta or aortic arch. The imaged portion of the dissection measures 5.9 cm in length. Liver: There is a 15 mm in diameter hepatic cyst. Gallbladder: Possible shrunken stone filled gallbladder. Spleen: Normal. Pancreas: Normal. Adrenal glands: Normal. Kidneys/bladder: There are benign cortical cysts in both kidneys. There is a benign peripelvic cyst in the left kidney. The urinary bladder has a normal unenhanced appearance. Pelvic structures: The uterus is surgically absent. The ovaries are not visualized. There is no free fluid the pelvis. There is no pelvic or inguinal lymphadenopathy. GI tract: There is a percutaneous gastrostomy tube in good position. There is a large amount of stool and air in the rectal vault. There are scattered colonic diverticuli without evidence of acute inflammation. There is a normal appendix demonstrated. Abdominal wall and mesentery: There is significant loss of the skeletal musculature in this nonambulatory patient. 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 There is no mesenteric or retroperitoneal lymphadenopathy. Abdominal aorta and vascular structures: There is calcific vascular disease of the abdominal aorta. There is tortuosity of the abdominal aorta. The inferior vena cava and portal venous system are normal. Bony structures: There is multilevel degenerative disc disease of the thoracolumbar spine. 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 IMPRESSION: 1. 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 2. 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 3. There are benign cortical cysts in both kidneys. 4. Suspect cholelithiasis with chronic cholecystitis. 5. Percutaneous gastrostomy tube in good position. 6. The rectal vault is distended with stool and gas. 7. Other findings as noted. <Electronically signed by Jac Beltrán > 04/04/21 [id number]
== END ==
LOC: M RAD 15:23
PROVIDERS: ATTEND Nurse Practitioner Adult Health
DX: N28.1 Cyst of kidney, acquired (principal); I71.2 Thoracic aortic aneurysm, without rupture; K76.89 Other specified diseases of liver; Z93.1 Gastrostomy status; K57.90 Diverticulosis of intestine, part unspecified, without perforation or abscess without bleeding; M51.35 Other intervertebral disc degeneration, thoracolumbar region; I70.0 Atherosclerosis of aorta; D17.9 Benign lipomatous neoplasm, unspecified
CPT/HCPCS: 74177; Q9967

== ENCOUNTER → 2021-04-19 | Outpatient (REF) | payer MEDICARE, MEDICAID ==
[~2021-04-19] MED LIST changes: -ISOVUE-370 76% 100ML VIAL As Ordered ONE
[2021-04-19 14:34] LABS: CHOLESTEROL RISK RATIO 1.354 (<5)
== END ==
LOC: SKLAB5 07:04
PROVIDERS: ATTEND Internal Medicine
DX: E78.5 Hyperlipidemia, unspecified (principal)

== ENCOUNTER → 2021-05-01 | Outpatient (REF) | payer MEDICARE, MEDICAID | LOC: SKLAB5 11:05 | PROVIDERS: ATTEND Internal Medicine | DX: Z20.822 Contact with and (suspected) exposure to COVID-19 (principal) ==

== ENCOUNTER → 2021-05-03 | Outpatient (REF) | payer MEDICARE, MEDICAID | LOC: SKLAB5 09:16 | PROVIDERS: ATTEND Internal Medicine | DX: Z20.822 Contact with and (suspected) exposure to COVID-19 (principal) ==

== ENCOUNTER → 2021-05-07 | Outpatient (REF) | payer MEDICARE, MEDICAID | LOC: SKLAB5 06:26 | PROVIDERS: ATTEND Internal Medicine | DX: Z20.822 Contact with and (suspected) exposure to COVID-19 (principal) ==

== ENCOUNTER → 2021-05-10 | Outpatient (REF) | payer MEDICARE, MEDICAID | LOC: SKLAB5 06:20 | PROVIDERS: ATTEND Internal Medicine | DX: Z20.822 Contact with and (suspected) exposure to COVID-19 (principal) ==

== ENCOUNTER → 2021-05-11 | Outpatient (REF) | payer MEDICARE, MEDICAID ==
[2021-05-11 11:19] LABS: HEMATOCRIT 34.8 % (36.0-47.0); HEMOGLOBIN 10.8 g/dl (12.0-15.5); MEAN CORPUSCULAR HEMOGLOBIN 25.8 pg (27.0-33.0); MEAN CORPUSCULAR VOLUME 83.1 fl (80.0-96.0); PLATELET COUNT, AUTOMATED 182 10^3/uL (150-450); RED BLOOD COUNT 4.19 10^6/uL (4.00-5.40); WHITE BLOOD COUNT 4.5 10^3/uL (4.0-10.0)
[2021-05-11 12:55] LABS: ALBUMIN 2.4 GM/DL (3.2-5.2); ALT/SGPT 42 U/L (12-78); BILIRUBIN,TOTAL 0.2 MG/DL (0.2-1.0); BLOOD UREA NITROGEN 20 MG/DL (7-18); CALCIUM LEVEL 8.6 MG/DL (8.8-10.2); CARBON DIOXIDE LEVEL 30 MEQ/L (21-32); CHLORIDE LEVEL 103 MEQ/L (98-107); CREATININE FOR GFR 0.62 MG/DL (0.55-1.30); GLOMERULAR FILTRATION RATE > 60.0 (>39); GLUCOSE, FASTING 139 MG/DL (70-100); SODIUM LEVEL 139 MEQ/L (136-145); TOTAL PROTEIN 6.6 GM/DL (6.4-8.2)
== END ==
LOC: SKLAB5 07:31
PROVIDERS: ATTEND Internal Medicine
DX: U07.1 COVID-19 (principal); Z79.899 Other long term (current) drug therapy

== ENCOUNTER → 2021-05-14 | Outpatient (REF) | payer MEDICARE, MEDICAID ==
[2021-05-14 09:28] LABS: HEMATOCRIT 39.9 % (36.0-47.0); MEAN CORPUSCULAR HEMOGLOBIN 25.4 pg (27.0-33.0); MEAN CORPUSCULAR HGB CONC 30.1 g/dl (32.0-36.5); MEAN CORPUSCULAR VOLUME 84.5 fl (80.0-96.0); PLATELET COUNT, AUTOMATED 207 10^3/uL (150-450); RED BLOOD COUNT 4.72 10^6/uL (4.00-5.40); WHITE BLOOD COUNT 4.6 10^3/uL (4.0-10.0)
[2021-05-14 10:22] LABS: BLOOD UREA NITROGEN 24 MG/DL (7-18); CARBON DIOXIDE LEVEL 32 MEQ/L (21-32); CHLORIDE LEVEL 102 MEQ/L (98-107); CREATININE FOR GFR 0.65 MG/DL (0.55-1.30); GLOMERULAR FILTRATION RATE > 60.0 (>39); GLUCOSE, FASTING 112 MG/DL (70-100); POTASSIUM SERUM 3.7 MEQ/L (3.5-5.1); SODIUM LEVEL 138 MEQ/L (136-145)
== END ==
LOC: SKLAB5 05:54
PROVIDERS: ATTEND Internal Medicine
DX: U07.1 COVID-19 (principal); Z79.899 Other long term (current) drug therapy

== ENCOUNTER → 2021-05-16 | Outpatient (REF) | payer MEDICARE, MEDICAID ==
[2021-05-16 12:10] LABS: HEMATOCRIT 39.3 % (36.0-47.0); MEAN CORPUSCULAR HEMOGLOBIN 25.6 pg (27.0-33.0); MEAN CORPUSCULAR HGB CONC 30.5 g/dl (32.0-36.5); PLATELET COUNT, AUTOMATED 181 10^3/uL (150-450); RED BLOOD COUNT 4.68 10^6/uL (4.00-5.40); WHITE BLOOD COUNT 5.8 10^3/uL (4.0-10.0)
[2021-05-16 12:32] LABS: BLOOD UREA NITROGEN 19 MG/DL (7-18); CALCIUM LEVEL 8.7 MG/DL (8.8-10.2); CARBON DIOXIDE LEVEL 30 MEQ/L (21-32); CHLORIDE LEVEL 103 MEQ/L (98-107); CREATININE FOR GFR 0.68 MG/DL (0.55-1.30); GLOMERULAR FILTRATION RATE > 60.0 (>39); GLUCOSE, FASTING 74 MG/DL (70-100); POTASSIUM SERUM 4.4 MEQ/L (3.5-5.1); SODIUM LEVEL 137 MEQ/L (136-145)
== END ==
LOC: SKLAB5 08:00
PROVIDERS: ATTEND Internal Medicine
DX: U07.1 COVID-19 (principal); Z79.899 Other long term (current) drug therapy

== ENCOUNTER → 2021-05-18 | Outpatient (REF) | payer MEDICARE, MEDICAID ==
[2021-05-18 10:04] LABS: HEMATOCRIT 39.6 % (36.0-47.0); MEAN CORPUSCULAR HEMOGLOBIN 26.1 pg (27.0-33.0); MEAN CORPUSCULAR HGB CONC 30.3 g/dl (32.0-36.5); MEAN CORPUSCULAR VOLUME 86.1 fl (80.0-96.0); PLATELET COUNT, AUTOMATED 166 10^3/uL (150-450); WHITE BLOOD COUNT 6.4 10^3/uL (4.0-10.0)
[2021-05-18 16:58] LABS: BLOOD UREA NITROGEN 21 MG/DL (7-18); CARBON DIOXIDE LEVEL 31 MEQ/L (21-32); CHLORIDE LEVEL 101 MEQ/L (98-107); GLOMERULAR FILTRATION RATE > 60.0 (>39); GLUCOSE, FASTING 76 MG/DL (70-100); POTASSIUM SERUM 4.1 MEQ/L (3.5-5.1); SODIUM LEVEL 140 MEQ/L (136-145)
== END ==
LOC: SKLAB5 09:00
PROVIDERS: ATTEND Internal Medicine
DX: U07.1 COVID-19 (principal); Z79.899 Other long term (current) drug therapy

== ENCOUNTER → 2021-05-21 | Outpatient (REF) | payer MEDICARE, MEDICAID ==
[2021-05-21 09:28] LABS: HEMOGLOBIN 11.6 g/dl (12.0-15.5); MEAN CORPUSCULAR HEMOGLOBIN 25.8 pg (27.0-33.0); MEAN CORPUSCULAR HGB CONC 30.5 g/dl (32.0-36.5); MEAN CORPUSCULAR VOLUME 84.4 fl (80.0-96.0); PLATELET COUNT, AUTOMATED 180 10^3/uL (150-450); WHITE BLOOD COUNT 5.8 10^3/uL (4.0-10.0)
[2021-05-21 09:49] LABS: BLOOD UREA NITROGEN 22 MG/DL (7-18); CALCIUM LEVEL 8.1 MG/DL (8.8-10.2); CARBON DIOXIDE LEVEL 24 MEQ/L (21-32); CHLORIDE LEVEL 106 MEQ/L (98-107); CREATININE FOR GFR 0.61 MG/DL (0.55-1.30); GLOMERULAR FILTRATION RATE > 60.0 (>39); GLUCOSE, FASTING 171 MG/DL (70-100); POTASSIUM SERUM 4.7 MEQ/L (3.5-5.1); SODIUM LEVEL 138 MEQ/L (136-145)
== END ==
LOC: SKLAB5 08:00
PROVIDERS: ATTEND Internal Medicine
DX: D64.9 Anemia, unspecified (principal)

== ENCOUNTER → 2021-09-27 | Outpatient (REF) | payer MEDICARE, MEDICAID ==
[2021-09-27 11:52] LABS: BASO % 0.4 % (0.0-1.0); EOS # 0.1 10^3/uL (0.0-0.5); EOS % 2.3 % (0.0-3.0); HEMOGLOBIN 11.3 g/dl (12.0-15.5); LYMPH # 2.5 10^3/uL (1.5-5.0); MEAN CORPUSCULAR HEMOGLOBIN 26.3 pg (27.0-33.0); MEAN CORPUSCULAR HGB CONC 31.4 g/dl (32.0-36.5); MEAN CORPUSCULAR VOLUME 83.7 fl (80.0-96.0); MONO # 0.5 10^3/uL (0.0-0.8); MONO % 8.7 % (2.0-8.0); NEUTROPHILS # 2.5 10^3/uL (1.5-8.5); NEUTROPHILS % 44.4 % (36.0-66.0); PLATELET COUNT, AUTOMATED 170 10^3/uL (150-450); WHITE BLOOD COUNT 5.7 10^3/uL (4.0-10.0)
[2021-09-27 12:33] LABS: BLOOD UREA NITROGEN 23 MG/DL (7-18); CALCIUM LEVEL 8.6 MG/DL (8.8-10.2); CARBON DIOXIDE LEVEL 32 MEQ/L (21-32); CHLORIDE LEVEL 102 MEQ/L (98-107); CREATININE FOR GFR 0.63 MG/DL (0.55-1.30); GLOMERULAR FILTRATION RATE > 60.0 (>39); GLUCOSE, FASTING 73 MG/DL (70-100); POTASSIUM SERUM 4.3 MEQ/L (3.5-5.1); SODIUM LEVEL 140 MEQ/L (136-145)
== END ==
LOC: SKLAB5 07:54
PROVIDERS: ATTEND Internal Medicine
DX: D64.9 Anemia, unspecified (principal)

== ENCOUNTER → 2021-10-25 | Outpatient (REF) | payer MEDICARE, MEDICAID ==
[~2021-10-25] MED LIST changes: -ASPI-286 PEG; +SM C81CH2 PEG
[2021-10-25 12:33] LABS: CHOLESTEROL RISK RATIO 1.703 (<5)
== END ==
LOC: SKLAB5 09:35
PROVIDERS: ATTEND Internal Medicine
DX: E78.2 Mixed hyperlipidemia (principal)

== ENCOUNTER → 2021-11-16 | Outpatient (REF) | payer MEDICARE, MEDICAID | LOC: SKLAB5 08:33 | PROVIDERS: ATTEND Internal Medicine | DX: E05.90 Thyrotoxicosis, unspecified without thyrotoxic crisis or storm (principal) ==

== ENCOUNTER → 2022-01-01 | Outpatient (REF) | payer MEDICARE, MEDICAID ==
[2022-01-01 07:28] LABS: BASO % 0.5 % (0.0-1.0); EOS # 0.2 10^3/uL (0.0-0.5); EOS % 3.2 % (0.0-3.0); HEMATOCRIT 37.2 % (36.0-47.0); HEMOGLOBIN 11.2 g/dl (12.0-15.5); LYMPH # 1.5 10^3/uL (1.5-5.0); LYMPH % 26.9 % (24.0-44.0); MEAN CORPUSCULAR HEMOGLOBIN 25.4 pg (27.0-33.0); MEAN CORPUSCULAR HGB CONC 30.1 g/dl (32.0-36.5); MEAN CORPUSCULAR VOLUME 84.4 fl (80.0-96.0); MONO # 0.4 10^3/uL (0.0-0.8); MONO % 6.4 % (2.0-8.0); NEUTROPHILS # 3.5 10^3/uL (1.5-8.5); NEUTROPHILS % 62.6 % (36.0-66.0); PLATELET COUNT, AUTOMATED 215 10^3/uL (150-450); RED BLOOD COUNT 4.41 10^6/uL (4.00-5.40); WHITE BLOOD COUNT 5.6 10^3/uL (4.0-10.0)
[2022-01-01 07:51] LABS: BLOOD UREA NITROGEN 23 MG/DL (7-18); CALCIUM LEVEL 8.9 MG/DL (8.8-10.2); CARBON DIOXIDE LEVEL 30 MEQ/L (21-32); CHLORIDE LEVEL 102 MEQ/L (98-107); GLOMERULAR FILTRATION RATE > 60.0 (>39); GLUCOSE, FASTING 113 MG/DL (70-100); POTASSIUM SERUM 4.3 MEQ/L (3.5-5.1); SODIUM LEVEL 139 MEQ/L (136-145)
== END ==
LOC: SKLAB5 06:00
PROVIDERS: ATTEND Internal Medicine
DX: D64.9 Anemia, unspecified (principal)

== ENCOUNTER → 2022-04-02 | Outpatient (REF) | payer MEDICARE, MEDICAID ==
[2022-04-02 11:19] LABS: BASO % 0.3 % (0.0-1.0); EOS # 0.1 10^3/uL (0.0-0.5); EOS % 1.9 % (0.0-3.0); HEMATOCRIT 38.4 % (36.0-47.0); HEMOGLOBIN 11.7 g/dl (12.0-15.5); LYMPH # 2.1 10^3/uL (1.5-5.0); LYMPH % 34.1 % (24.0-44.0); MEAN CORPUSCULAR HEMOGLOBIN 25.4 pg (27.0-33.0); MEAN CORPUSCULAR HGB CONC 30.5 g/dl (32.0-36.5); MEAN CORPUSCULAR VOLUME 83.3 fl (80.0-96.0); MONO # 0.4 10^3/uL (0.0-0.8); MONO % 7.1 % (2.0-8.0); NEUTROPHILS # 3.5 10^3/uL (1.5-8.5); NEUTROPHILS % 56.4 % (36.0-66.0); PLATELET COUNT, AUTOMATED 214 10^3/uL (150-450); RED BLOOD COUNT 4.61 10^6/uL (4.00-5.40); WHITE BLOOD COUNT 6.2 10^3/uL (4.0-10.0)
[2022-04-02 11:55] LABS: BLOOD UREA NITROGEN 20 MG/DL (7-18); CALCIUM LEVEL 8.8 MG/DL (8.8-10.2); CARBON DIOXIDE LEVEL 30 MEQ/L (21-32); CHLORIDE LEVEL 102 MEQ/L (98-107); CREATININE FOR GFR 0.52 MG/DL (0.55-1.30); GLOMERULAR FILTRATION RATE > 60.0 (>39); GLUCOSE, FASTING 74 MG/DL (70-100); POTASSIUM SERUM 4.3 MEQ/L (3.5-5.1); SODIUM LEVEL 137 MEQ/L (136-145)
== END ==
LOC: SKLAB5 12:01
PROVIDERS: ATTEND Internal Medicine
DX: D64.9 Anemia, unspecified (principal)

== ENCOUNTER → 2022-04-30 | Outpatient (REF) | payer MEDICARE, MEDICAID ==
[2022-04-30 09:47] LABS: CHOLESTEROL RISK RATIO 1.476 (<5); THYROID STIMULATING HORMONE 1.09 uIU/ML (0.358-3.740)
== END ==
LOC: SKLAB5 09:24
PROVIDERS: ATTEND Nurse Practitioner Adult Health
DX: E03.9 Hypothyroidism, unspecified (principal); E78.2 Mixed hyperlipidemia

== ENCOUNTER → 2022-07-02 | Outpatient (REF) | payer MEDICARE, MEDICAID ==
[2022-06-28 08:02] LABS: BASO % 0.5 % (0.0-1.0); EOS # 0.1 10^3/uL (0.0-0.5); EOS % 2.3 % (0.0-3.0); HEMATOCRIT 37.6 % (36.0-47.0); HEMOGLOBIN 11.5 g/dl (12.0-15.5); LYMPH # 1.8 10^3/uL (1.5-5.0); LYMPH % 28.7 % (24.0-44.0); MEAN CORPUSCULAR HGB CONC 30.6 g/dl (32.0-36.5); MEAN CORPUSCULAR VOLUME 85.1 fl (80.0-96.0); MONO # 0.4 10^3/uL (0.0-0.8); MONO % 7.1 % (2.0-8.0); NEUTROPHILS # 3.8 10^3/uL (1.5-8.5); NEUTROPHILS % 61.2 % (36.0-66.0); PLATELET COUNT, AUTOMATED 169 10^3/uL (150-450); RED BLOOD COUNT 4.42 10^6/uL (4.00-5.40); WHITE BLOOD COUNT 6.2 10^3/uL (4.0-10.0)
[2022-06-28 08:22] LABS: BLOOD UREA NITROGEN 19 MG/DL (9-23); CALCIUM LEVEL 8.4 MG/DL (8.3-10.6); CARBON DIOXIDE LEVEL 29 MMOL/L (20-31); CHLORIDE LEVEL 101 MMOL/L (98-107); CREATININE FOR GFR 0.52 MG/DL (0.55-1.30); GLOMERULAR FILTRATION RATE > 60.0 (>39); GLUCOSE, FASTING 113 MG/DL (74-106); SODIUM LEVEL 139 MMOL/L (136-145)
== END ==
LOC: SKLAB5 10:59
PROVIDERS: ATTEND Nurse Practitioner Adult Health
DX: D64.9 Anemia, unspecified (principal)

== ENCOUNTER 2022-08-23 02:57 | Inpatient (IN) | payer MEDICARE, MEDICAID ==
[2022-08-23] VITALS (16 sets, daily range): BP systolic 131–217; BP diastolic 76–114
[~2022-08-23] VITALS: Ht 165.1 cm; Wt 69.0 kg
[2022-08-23] MEDS ORDERED: PROPOFOL 1,000 MG/100 ML VIAL As Ordered ONE (03:06)
[2022-08-23] MEDS ORDERED: propofoL 1,000 MG in IV 1 EA IV SCH (03:10)
[2022-08-23] MEDS ORDERED: ROCURONIUM BROMIDE 50MG/5ML VIAL IV ONE (03:10)
[2022-08-23] MEDS ORDERED: ETOMIDATE INJ 20MG/10ML VIAL IV ONE (03:10)
[2022-08-23] MEDS ORDERED: OXYMETAZOLINE 0.05% NASAL SPRAY (AFRIN) ONE (03:20)
[2022-08-23 03:26] LABS: BASO % 0.2 % (0.0-1.0); EOS # 0.1 10^3/uL (0.0-0.5); EOS % 0.7 % (0.0-3.0); HEMATOCRIT 39.3 % (36.0-47.0); HEMOGLOBIN 11.9 g/dl (12.0-15.5); LYMPH # 1.9 10^3/uL (1.5-5.0); MEAN CORPUSCULAR HEMOGLOBIN 26.1 pg (27.0-33.0); MEAN CORPUSCULAR HGB CONC 30.3 g/dl (32.0-36.5); MEAN CORPUSCULAR VOLUME 86.2 fl (80.0-96.0); MONO # 0.8 10^3/uL (0.0-0.8); MONO % 4.1 % (2.0-8.0); NEUTROPHILS # 16.3 10^3/uL (1.5-8.5); NEUTROPHILS % 84.3 % (36.0-66.0); PLATELET COUNT, AUTOMATED 309 10^3/uL (150-450); RED BLOOD COUNT 4.56 10^6/uL (4.00-5.40); WHITE BLOOD COUNT 19.4 10^3/uL (4.0-10.0)
[2022-08-23] MEDS ORDERED: MIDAZOLAM 100MG/100ML-0.9%NACL 100 MG in IV 1 EA IV SCH ×2 (03:40→06:15)
[2022-08-23 03:42] LABS: PROTHROMBIN TIME 13.4 SECONDS (12.5-14.5)
[2022-08-23 03:43] LABS: PARTIAL THROMBOPLASTIN TIME 28.6 SECONDS (24.8-34.2)
[2022-08-23 03:58] LABS: CK-MB VALUE MASS 3.3 NG/ML (<3.6)
[2022-08-23 04:00] LABS: ALBUMIN 2.9 G/DL (3.2-5.2); ALKALINE PHOSPHATASE 259 U/L (46-116); ALT/SGPT 90 U/L (7.0-40); AST/SGOT 55 U/L (<34); BILIRUBIN,DIRECT 0.2 MG/DL (<0.4); BILIRUBIN,TOTAL 0.4 MG/DL (0.3-1.2); BLOOD UREA NITROGEN 29 MG/DL (9-23); CALCIUM LEVEL 8.6 MG/DL (8.3-10.6); CARBON DIOXIDE LEVEL 28 MMOL/L (20-31); CHLORIDE LEVEL 99 MMOL/L (98-107); CPK CREATINE PHOSPHOKINASE 206 U/L (34-145); CREATININE FOR GFR 0.63 MG/DL (0.55-1.30); GLOMERULAR FILTRATION RATE > 60.0 (>39); GLUCOSE, FASTING 159 MG/DL (74-106); POTASSIUM SERUM 4.6 MMOL/L (3.5-5.1); SODIUM LEVEL 136 MMOL/L (136-145); TOTAL PROTEIN 7.2 G/DL (5.7-8.2)
[2022-08-23 04:54] LABS: RSV AMPLIFICATION NEGATIVE (NEGATIVE)
[2022-08-23] MEDS ORDERED: PIPERACILLIN/TAZOBACTAM SOD 3.375 GM in D5W MINI-BAG PLUS 50 ML IV ONE (06:00)
[2022-08-23] MEDS: propofoL 1,000 MG in IV 1 EA IV SCH ×2 (06:15→16:49)
[2022-08-23] MEDS ORDERED: NS 1,000 ML IV SCH (06:25)
[2022-08-23] MEDS ORDERED: NS 500 ML IV ONE (06:25)
[2022-08-23] MEDS ORDERED: REFR0.5D8 OU (06:40)
[2022-08-23] MEDS ORDERED: MILK400S19 PO (06:40)
[2022-08-23] MEDS ORDERED: FURO20TA2 GT (06:40)
[2022-08-23] MEDS ORDERED: BACL1TAB8 GT (06:40)
[2022-08-23] MEDS ORDERED: FAMO40TA3 GT (06:40)
[2022-08-23] MEDS ORDERED: JEVILIQ12 PEG (06:40)
[2022-08-23] MEDS ORDERED: ATOR1TAB21 GT (06:40)
[2022-08-23] MEDS ORDERED: FLEEENE12 PR (06:40)
[2022-08-23] MEDS ORDERED: MOM30SS GT (06:40)
[2022-08-23] MEDS ORDERED: RAMI1CAP26 GT (06:40)
[2022-08-23] MEDS ORDERED: ACET-907 GT (06:40)
[2022-08-23] MEDS ORDERED: SYNT125T GT (06:40)
[2022-08-23] MEDS ORDERED: CELE10TA GT (06:40)
[2022-08-23] MEDS ORDERED: ACET-716 GT (06:40)
[2022-08-23] MEDS ORDERED: BISA10SU4 PR (06:40)
[2022-08-23] MEDS ORDERED: SORB70SO36 GT (06:40)
[2022-08-23] MEDS ORDERED: ASPI1CHW3 GT (06:40)
[2022-08-23] MEDS ORDERED: HOME MED LIST COMPLETE! XX SCH (06:45)
[2022-08-23 07:00] LABS: ABG BASE EXCESS -0.1 (-2.0-2.0); ABG HCO3 25.4 MEQ/L (22.0-26.0); ABG O2 SATURATION 96.1 % (95.0-99.0); ABG PARTIAL PRESSURE CO2 44.9 mmHg (35.0-45.0); ABG PARTIAL PRESSURE O2 85.1 mmHg (75.0-100.0); ABG STANDARD HCO3 24.4 MEQ/L (22.0-26.0); ABG TOTAL CO2 26.8 MEQ/L (23.0-31.0)
[2022-08-23] MEDS: PANTOPRAZOLE 40MG VIAL IV SCH ×2 (09:24→09:25)
[2022-08-23] MEDS: CHLORHEXIDINE GLUCONATE 0.12 % 15ML UDC (PERIDEX ORAL RINSE) MT SCH ×2 (09:24→20:31)
[2022-08-23] MEDS ORDERED: LIDOCAINE 1% MDV 20ML VIAL As Ordered ONE ×2 (11:16→15:09)
[2022-08-23] MEDS ORDERED: LIDOCAINE 1% MDV 20ML VIAL SC ONE (12:00)
[2022-08-23] MEDS ORDERED: fentaNYL 100 MCG/2 ML INJECTION As Ordered ONE (12:51)
[2022-08-23] MEDS ORDERED: fentaNYL 100 MCG/2 ML INJECTION IV ONE (12:55)
[2022-08-23] MEDS: PIPERACILLIN/TAZOBACTAM SOD 3.375 GM in D5W MINI-BAG PLUS 50 ML IV SCH ×3 (12:57→23:58)
[2022-08-23 16:42] LABS: HEMATOCRIT 32.9 % (36.0-47.0); HEMOGLOBIN 10.3 g/dl (12.0-15.5)
[2022-08-23 17:12] LABS: BLOOD UREA NITROGEN 34 MG/DL (9-23); CALCIUM LEVEL 7.9 MG/DL (8.3-10.6); CARBON DIOXIDE LEVEL 29 MMOL/L (20-31); CHLORIDE LEVEL 105 MMOL/L (98-107); GLOMERULAR FILTRATION RATE > 60.0 (>39); GLUCOSE, FASTING 143 MG/DL (74-106); POTASSIUM SERUM 3.6 MMOL/L (3.5-5.1); SODIUM LEVEL 139 MMOL/L (136-145)
[2022-08-23] MEDS: SODIUM CHLORIDE 0.9% INJ 10 ML SYR IV SCH (18:36)
[2022-08-23 20:40] LABS: HEMATOCRIT 31.3 % (36.0-47.0); HEMOGLOBIN 9.9 g/dl (12.0-15.5)
[2022-08-24] VITALS (38 sets, daily range): BP systolic 135–193; BP diastolic 68–107
[2022-08-24 01:15] LABS: HEMATOCRIT 30.3 % (36.0-47.0); HEMOGLOBIN 9.6 g/dl (12.0-15.5)
[2022-08-24 05:00] LABS: HEMATOCRIT 29.8 % (36.0-47.0); HEMOGLOBIN 9.9 g/dl (12.0-15.5); MEAN CORPUSCULAR HGB CONC 33.2 g/dl (32.0-36.5); MEAN CORPUSCULAR VOLUME 81.4 fl (80.0-96.0); PLATELET COUNT, AUTOMATED 225 10^3/uL (150-450); RED BLOOD COUNT 3.66 10^6/uL (4.00-5.40); WHITE BLOOD COUNT 10.1 10^3/uL (4.0-10.0)
[2022-08-24 05:18] LABS: BLOOD UREA NITROGEN 34 MG/DL (9-23); CALCIUM LEVEL 7.8 MG/DL (8.3-10.6); CARBON DIOXIDE LEVEL 28 MMOL/L (20-31); CHLORIDE LEVEL 104 MMOL/L (98-107); CREATININE FOR GFR 0.68 MG/DL (0.55-1.30); GLOMERULAR FILTRATION RATE > 60.0 (>39); GLUCOSE, FASTING 93 MG/DL (74-106); PHOSPHORUS LEVEL 1.6 MG/DL (2.4-5.1); SODIUM LEVEL 141 MMOL/L (136-145)
[2022-08-24] MEDS: PIPERACILLIN/TAZOBACTAM SOD 3.375 GM in D5W MINI-BAG PLUS 50 ML IV SCH ×3 (05:21→17:21)
[2022-08-24] MEDS: propofoL 1,000 MG in IV 1 EA IV SCH ×2 (05:22→14:11)
[2022-08-24] MEDS: SODIUM CHLORIDE 0.9% INJ 10 ML SYR IV SCH ×2 (05:23→17:21)
[2022-08-24 06:28] LABS: ABG BASE EXCESS 3.3 (-2.0-2.0); ABG O2 SATURATION 98.2 % (95.0-99.0); ABG PARTIAL PRESSURE CO2 27.3 mmHg (35.0-45.0); ABG PARTIAL PRESSURE O2 101.8 mmHg (75.0-100.0); ABG STANDARD HCO3 27.5 MEQ/L (22.0-26.0); ABG TOTAL CO2 25.9 MEQ/L (23.0-31.0)
[2022-08-24] MEDS: KCL 20MEQ IN 100ML SWI (KRUN) 20 MEQ in IV 1 EA IV SCH ×4 (06:42→09:45)
[2022-08-24] MEDS: CHLORHEXIDINE GLUCONATE 0.12 % 15ML UDC (PERIDEX ORAL RINSE) MT SCH ×2 (09:45→22:35)
[2022-08-24] MEDS ORDERED: hydrALAZINE 20MG/ML 1ML VIAL IV ONE (10:20)
[2022-08-24] MEDS ORDERED: hydrALAZINE 20MG/ML 1ML VIAL IV PRN ×2 (11:30→12:05)
[2022-08-24] MEDS: D5W/0.9% SODIUM CHLORIDE 1,000 ML IV SCH (12:04)
[2022-08-24] MEDS ORDERED: MIDAZOLAM INJ 2MG/2ML VIAL As Ordered ONE (12:31)
[2022-08-24] MEDS ORDERED: MIDAZOLAM INJ 2MG/2ML VIAL IV ONE (12:35)
[2022-08-24] MEDS: FUROSEMIDE 10MG PER 1/2 TABLET GT SCH (16:44)
[2022-08-24] MEDS: CitaloPRAM (CeleXA) 10 MG TABLET GT SCH (17:21)
[2022-08-24] MEDS ORDERED: FUROSEMIDE 20MG/2ML VIAL IV ONE ×2 (17:40→18:00)
[2022-08-24] MEDS: BACLOFEN 10 MG TAB GT SCH (22:35)
[2022-08-24] MEDS: ATORVASTATIN 20 MG TAB GT SCH (22:35)
[2022-08-24] MEDS: ramipriL 5 MG CAP GT SCH (22:38)
[2022-08-25] VITALS (26 sets, daily range): BP systolic 123–222; BP diastolic 64–118
[2022-08-25] MEDS: PIPERACILLIN/TAZOBACTAM SOD 3.375 GM in D5W MINI-BAG PLUS 50 ML IV SCH ×3 (00:07→13:42)
[2022-08-25] MEDS: propofoL 1,000 MG in IV 1 EA IV SCH (01:00)
[2022-08-25 01:44] LABS: MAGNESIUM LEVEL 1.9 MG/DL (1.8-2.4); POTASSIUM SERUM 2.7 MMOL/L (3.5-5.1)
[2022-08-25] MEDS: KCL 20MEQ IN 100ML SWI (KRUN) 20 MEQ in IV 1 EA IV SCH ×4 (02:07→03:10)
[2022-08-25] MEDS: LEVOTHYROXINE 125MCG TABLET (0.125MG) GT SCH (05:52)
[2022-08-25] MEDS: SODIUM CHLORIDE 0.9% INJ 10 ML SYR IV SCH ×2 (05:52→17:55)
[2022-08-25 06:05] LABS: ABG BASE EXCESS 1.6 (-2.0-2.0); ABG O2 SATURATION 98.2 % (95.0-99.0); ABG PARTIAL PRESSURE CO2 34.2 mmHg (35.0-45.0); ABG PARTIAL PRESSURE O2 102.1 mmHg (75.0-100.0); ABG STANDARD HCO3 25.9 MEQ/L (22.0-26.0); ABG pH (ARTERIAL) 7.481 UNITS (7.350-7.450)
[2022-08-25 06:14] LABS: BASO % 0.2 % (0.0-1.0); EOS # 0.1 10^3/uL (0.0-0.5); EOS % 0.9 % (0.0-3.0); HEMATOCRIT 30.1 % (36.0-47.0); HEMOGLOBIN 9.3 g/dl (12.0-15.5); LYMPH # 1.4 10^3/uL (1.5-5.0); LYMPH % 14.4 % (24.0-44.0); MEAN CORPUSCULAR HEMOGLOBIN 25.6 pg (27.0-33.0); MEAN CORPUSCULAR HGB CONC 30.9 g/dl (32.0-36.5); MEAN CORPUSCULAR VOLUME 82.9 fl (80.0-96.0); MONO # 0.5 10^3/uL (0.0-0.8); MONO % 4.8 % (2.0-8.0); NEUTROPHILS # 7.4 10^3/uL (1.5-8.5); NEUTROPHILS % 79.4 % (36.0-66.0); PLATELET COUNT, AUTOMATED 210 10^3/uL (150-450); RED BLOOD COUNT 3.63 10^6/uL (4.00-5.40); WHITE BLOOD COUNT 9.4 10^3/uL (4.0-10.0)
[2022-08-25 06:55] LABS: BLOOD UREA NITROGEN 26 MG/DL (9-23); CALCIUM LEVEL 7.6 MG/DL (8.3-10.6); CARBON DIOXIDE LEVEL 28 MMOL/L (20-31); CHLORIDE LEVEL 108 MMOL/L (98-107); CREATININE FOR GFR 0.73 MG/DL (0.55-1.30); GLOMERULAR FILTRATION RATE > 60.0 (>39); GLUCOSE, FASTING 102 MG/DL (74-106); POTASSIUM SERUM 3.5 MMOL/L (3.5-5.1); SODIUM LEVEL 140 MMOL/L (136-145)
[2022-08-25] MEDS: PANTOPRAZOLE 40MG VIAL IV SCH (08:31)
[2022-08-25] MEDS: BACLOFEN 10 MG TAB GT SCH ×2 (08:31→21:31)
[2022-08-25] MEDS: CHLORHEXIDINE GLUCONATE 0.12 % 15ML UDC (PERIDEX ORAL RINSE) MT SCH ×2 (08:31→21:31)
[2022-08-25] MEDS: CitaloPRAM (CeleXA) 10 MG TABLET GT SCH (08:31)
[2022-08-25] MEDS: D5W/0.9% SODIUM CHLORIDE 1,000 ML IV SCH (10:48)
[2022-08-25] MEDS: FUROSEMIDE 10MG PER 1/2 TABLET GT SCH (13:41)
[2022-08-25] MEDS ORDERED: NS 1,000 ML IV ONE (13:45)
[2022-08-25] MEDS ORDERED: FLEET ENEMA PR PRN (15:50)
[2022-08-25] MEDS ORDERED: NS 1,000 ML IV SCH (17:45)
[2022-08-25] MEDS: ramipriL 5 MG CAP GT SCH (18:13)
[2022-08-25] MEDS: AUGMENTIN ES SUSP POWDER 600MG/5ML 125ML BTL PEG SCH (21:30)
[2022-08-25] MEDS: ATORVASTATIN 20 MG TAB GT SCH (21:31)
[2022-08-26] VITALS (18 sets, daily range): BP systolic 124–180; BP diastolic 72–113
[2022-08-26] MEDS: METOPROLOL 5 MG/5 ML VIAL IV SCH ×2 (00:52→06:35)
[2022-08-26 05:28] LABS: ABG BASE EXCESS 0.7 (-2.0-2.0); ABG O2 SATURATION 96.5 % (95.0-99.0); ABG PARTIAL PRESSURE CO2 33.8 mmHg (35.0-45.0); ABG PARTIAL PRESSURE O2 81.3 mmHg (75.0-100.0); ABG STANDARD HCO3 25.1 MEQ/L (22.0-26.0); ABG TOTAL CO2 25.1 MEQ/L (23.0-31.0)
[2022-08-26] MEDS: SODIUM CHLORIDE 0.9% INJ 10 ML SYR IV SCH ×2 (06:37→18:09)
[2022-08-26] MEDS: LEVOTHYROXINE 125MCG TABLET (0.125MG) GT SCH (06:37)
[2022-08-26 07:50] LABS: BASO % 0.1 % (0.0-1.0); EOS # 0.1 10^3/uL (0.0-0.5); EOS % 0.7 % (0.0-3.0); HEMATOCRIT 31.2 % (36.0-47.0); HEMOGLOBIN 9.5 g/dl (12.0-15.5); LYMPH # 1.2 10^3/uL (1.5-5.0); LYMPH % 16.9 % (24.0-44.0); MEAN CORPUSCULAR HEMOGLOBIN 25.6 pg (27.0-33.0); MEAN CORPUSCULAR HGB CONC 30.4 g/dl (32.0-36.5); MEAN CORPUSCULAR VOLUME 84.1 fl (80.0-96.0); MONO # 0.5 10^3/uL (0.0-0.8); MONO % 6.6 % (2.0-8.0); NEUTROPHILS # 5.4 10^3/uL (1.5-8.5); NEUTROPHILS % 75.4 % (36.0-66.0); PLATELET COUNT, AUTOMATED 218 10^3/uL (150-450); RED BLOOD COUNT 3.71 10^6/uL (4.00-5.40); WHITE BLOOD COUNT 7.1 10^3/uL (4.0-10.0)
[2022-08-26 08:17] LABS: BLOOD UREA NITROGEN 26 MG/DL (9-23); CARBON DIOXIDE LEVEL 28 MMOL/L (20-31); CHLORIDE LEVEL 108 MMOL/L (98-107); CREATININE FOR GFR 0.57 MG/DL (0.55-1.30); GLOMERULAR FILTRATION RATE > 60.0 (>39); GLUCOSE, FASTING 123 MG/DL (74-106); POTASSIUM SERUM 3.1 MMOL/L (3.5-5.1); SODIUM LEVEL 143 MMOL/L (136-145)
[2022-08-26] MEDS ORDERED: amLODIPine 5 MG TAB PEG SCH (09:00)
[2022-08-26] MEDS: AUGMENTIN ES SUSP POWDER 600MG/5ML 125ML BTL PEG SCH ×2 (09:06→20:33)
[2022-08-26] MEDS: CHLORHEXIDINE GLUCONATE 0.12 % 15ML UDC (PERIDEX ORAL RINSE) MT SCH ×2 (09:06→20:32)
[2022-08-26] MEDS: BACLOFEN 10 MG TAB GT SCH ×2 (09:06→20:31)
[2022-08-26] MEDS ORDERED: POTASSIUM CHLORIDE 10% LIQ 20MEQ/15ML UDC PEG ONE (09:10)
[2022-08-26] MEDS ORDERED: AMLO1TAB24 PEG (09:20)
[2022-08-26] MEDS ORDERED: AMOX1SUS19 PEG (09:20)
[2022-08-26] MEDS: CitaloPRAM (CeleXA) 10 MG TABLET GT SCH (10:33)
[2022-08-26] MEDS ORDERED: amLODIPine 5 MG TAB PEG ONE (10:50)
[2022-08-26] MEDS: FAMOTIDINE 20 MG TAB GT SCH (11:38)
[2022-08-26] MEDS: FUROSEMIDE 10MG PER 1/2 TABLET GT SCH (11:38)
[2022-08-26] MEDS: ASPIRIN 81MG CHEW TABLET GT SCH (11:40)
[2022-08-26] MEDS: SODIUM CHLORIDE 0.9% INJ 10 ML SYR IV PRN (18:09)
[2022-08-26] MEDS: ATORVASTATIN 20 MG TAB GT SCH (20:31)
[2022-08-26] MEDS: ramipriL 5 MG CAP GT SCH (20:32)
[2022-08-26] MEDS: ACETAMINOPHEN TAB 650MG DOSE (2X325MG) GT PRN (20:59)
[2022-08-26] MEDS ORDERED: **hydrALAZINE** 10 MG TAB PO ONE (21:45)
[2022-08-27] VITALS (16 sets, daily range): BP systolic 139–197; BP diastolic 81–107
[2022-08-27] MEDS ORDERED: **hydrALAZINE** 10 MG TAB PEG ONE (04:20)
[2022-08-27 04:54] LABS: BASO % 0.1 % (0.0-1.0); EOS # 0.2 10^3/uL (0.0-0.5); EOS % 2.1 % (0.0-3.0); HEMATOCRIT 34.3 % (36.0-47.0); HEMOGLOBIN 10.4 g/dl (12.0-15.5); LYMPH # 1.3 10^3/uL (1.5-5.0); LYMPH % 17.4 % (24.0-44.0); MEAN CORPUSCULAR HEMOGLOBIN 25.6 pg (27.0-33.0); MEAN CORPUSCULAR HGB CONC 30.3 g/dl (32.0-36.5); MEAN CORPUSCULAR VOLUME 84.5 fl (80.0-96.0); MONO # 0.5 10^3/uL (0.0-0.8); MONO % 6.1 % (2.0-8.0); NEUTROPHILS # 5.7 10^3/uL (1.5-8.5); PLATELET COUNT, AUTOMATED 209 10^3/uL (150-450); RED BLOOD COUNT 4.06 10^6/uL (4.00-5.40); WHITE BLOOD COUNT 7.7 10^3/uL (4.0-10.0)
[2022-08-27] MEDS: SODIUM CHLORIDE 0.9% INJ 10 ML SYR IV SCH ×2 (05:00→17:42)
[2022-08-27 05:18] LABS: BLOOD UREA NITROGEN 29 MG/DL (9-23); CALCIUM LEVEL 8.3 MG/DL (8.3-10.6); CARBON DIOXIDE LEVEL 26 MMOL/L (20-31); CHLORIDE LEVEL 109 MMOL/L (98-107); CREATININE FOR GFR 0.57 MG/DL (0.55-1.30); GLOMERULAR FILTRATION RATE > 60.0 (>39); GLUCOSE, FASTING 231 MG/DL (74-106); MAGNESIUM LEVEL 1.9 MG/DL (1.8-2.4); POTASSIUM SERUM 3.8 MMOL/L (3.5-5.1); SODIUM LEVEL 144 MMOL/L (136-145)
[2022-08-27] MEDS: LEVOTHYROXINE 125MCG TABLET (0.125MG) GT SCH (05:31)
[2022-08-27] MEDS ORDERED: METOPROLOL 5 MG/5 ML VIAL IV ONE (06:10)
[2022-08-27] MEDS: ASPIRIN 81MG CHEW TABLET GT SCH (08:30)
[2022-08-27] MEDS: AUGMENTIN ES SUSP POWDER 600MG/5ML 125ML BTL PEG SCH ×2 (08:30→20:55)
[2022-08-27] MEDS: ramipriL 5 MG CAP GT SCH ×2 (08:31→20:56)
[2022-08-27] MEDS: ACETAMINOPHEN TAB 650MG DOSE (2X325MG) GT PRN (08:31)
[2022-08-27] MEDS: BACLOFEN 10 MG TAB GT SCH ×2 (08:31→20:56)
[2022-08-27] MEDS: CitaloPRAM (CeleXA) 10 MG TABLET GT SCH (08:31)
[2022-08-27] MEDS: METOPROLOL TART 25 MG TABLET PO SCH ×2 (08:32→20:58)
[2022-08-27] MEDS: CHLORHEXIDINE GLUCONATE 0.12 % 15ML UDC (PERIDEX ORAL RINSE) MT SCH ×2 (09:00→20:56)
[2022-08-27 11:12] LABS: CLOSTRIDIUM DIFFICILE PCR NEGATIVE (NEGATIVE)
[2022-08-27] MEDS: LACTOBACILLUS ACIDOPHILUS CAP (BACID) PEG SCH ×2 (13:26→17:38)
[2022-08-27] MEDS: FAMOTIDINE 20 MG TAB GT SCH (13:27)
[2022-08-27] MEDS: FUROSEMIDE 10MG PER 1/2 TABLET GT SCH (13:28)
[2022-08-27] MEDS: SODIUM CHLORIDE 0.9% INJ 10 ML SYR IV PRN (17:43)
[2022-08-27] MEDS: ATORVASTATIN 20 MG TAB GT SCH (20:56)
[2022-08-28 00:09] VITALS: BP 167/115
[2022-08-28] MEDS ORDERED: LOPERAMIDE 2 MG CAPLET PO ONE ×2 (00:40→00:55)
[2022-08-28 04:15] VITALS: BP 162/99
[2022-08-28 04:33] LABS: BASO % 0.3 % (0.0-1.0); EOS # 0.3 10^3/uL (0.0-0.5); EOS % 3.9 % (0.0-3.0); HEMATOCRIT 29.3 % (36.0-47.0); HEMOGLOBIN 8.9 g/dl (12.0-15.5); LYMPH % 27.4 % (24.0-44.0); MEAN CORPUSCULAR HEMOGLOBIN 25.7 pg (27.0-33.0); MEAN CORPUSCULAR HGB CONC 30.4 g/dl (32.0-36.5); MEAN CORPUSCULAR VOLUME 84.7 fl (80.0-96.0); MONO # 0.6 10^3/uL (0.0-0.8); NEUTROPHILS # 4.4 10^3/uL (1.5-8.5); PLATELET COUNT, AUTOMATED 195 10^3/uL (150-450); RED BLOOD COUNT 3.46 10^6/uL (4.00-5.40); WHITE BLOOD COUNT 7.4 10^3/uL (4.0-10.0)
[2022-08-28 04:59] LABS: BLOOD UREA NITROGEN 23 MG/DL (9-23); CALCIUM LEVEL 7.7 MG/DL (8.3-10.6); CARBON DIOXIDE LEVEL 30 MMOL/L (20-31); CHLORIDE LEVEL 111 MMOL/L (98-107); CREATININE FOR GFR 0.55 MG/DL (0.55-1.30); GLOMERULAR FILTRATION RATE > 60.0 (>39); GLUCOSE, FASTING 81 MG/DL (74-106); MAGNESIUM LEVEL 1.8 MG/DL (1.8-2.4); POTASSIUM SERUM 3.7 MMOL/L (3.5-5.1); SODIUM LEVEL 141 MMOL/L (136-145)
[2022-08-28] MEDS: SODIUM CHLORIDE 0.9% INJ 10 ML SYR IV SCH ×2 (05:38→17:16)
[2022-08-28] MEDS: LEVOTHYROXINE 125MCG TABLET (0.125MG) GT SCH (05:39)
[2022-08-28 08:00] VITALS: BP 169/93
[2022-08-28] MEDS: LACTOBACILLUS ACIDOPHILUS CAP (BACID) PEG SCH ×2 (08:53→17:15)
[2022-08-28] MEDS: ASPIRIN 81MG CHEW TABLET GT SCH (08:54)
[2022-08-28] MEDS: METOPROLOL TART 25 MG TABLET PO SCH ×2 (08:54→21:07)
[2022-08-28] MEDS: ramipriL 5 MG CAP GT SCH ×2 (08:54→21:08)
[2022-08-28] MEDS: BACLOFEN 10 MG TAB GT SCH ×2 (08:55→21:07)
[2022-08-28] MEDS: CHLORTHALIDONE 25 MG TAB PO SCH (08:55)
[2022-08-28] MEDS: AUGMENTIN ES SUSP POWDER 600MG/5ML 125ML BTL PEG SCH ×2 (08:56→21:07)
[2022-08-28] MEDS: CitaloPRAM (CeleXA) 10 MG TABLET GT SCH (09:20)
[2022-08-28] MEDS ORDERED: LOPERAMIDE 2 MG CAPLET PO PRN (09:50)
[2022-08-28] MEDS: FUROSEMIDE 10MG PER 1/2 TABLET GT SCH (11:50)
[2022-08-28] MEDS: FAMOTIDINE 20 MG TAB GT SCH (11:51)
[2022-08-28 12:00] VITALS: BP 172/100
[2022-08-28] MEDS ORDERED: hydrALAZINE 20MG/ML 1ML VIAL IV ONE (12:55)
[2022-08-28] MEDS ORDERED: **hydrALAZINE** 10 MG TAB PEG PRN (13:05)
[2022-08-28 16:00] VITALS: BP 158/101
[2022-08-28 17:37] VITALS: BP 151/94
[2022-08-28] MEDS: ATORVASTATIN 20 MG TAB GT SCH (21:07)
[2022-08-29] MEDS: LEVOTHYROXINE 125MCG TABLET (0.125MG) GT SCH (05:43)
[2022-08-29 06:00] VITALS: BP 152/99
[2022-08-29 06:56] LABS: BASO % 0.3 % (0.0-1.0); EOS # 0.3 10^3/uL (0.0-0.5); HEMATOCRIT 35.5 % (36.0-47.0); LYMPH # 2.1 10^3/uL (1.5-5.0); LYMPH % 31.2 % (24.0-44.0); MEAN CORPUSCULAR HEMOGLOBIN 25.8 pg (27.0-33.0); MEAN CORPUSCULAR VOLUME 83.3 fl (80.0-96.0); MONO # 0.5 10^3/uL (0.0-0.8); MONO % 7.2 % (2.0-8.0); NEUTROPHILS # 3.8 10^3/uL (1.5-8.5); NEUTROPHILS % 55.7 % (36.0-66.0); PLATELET COUNT, AUTOMATED 197 10^3/uL (150-450); RED BLOOD COUNT 4.26 10^6/uL (4.00-5.40); WHITE BLOOD COUNT 6.8 10^3/uL (4.0-10.0)
[2022-08-29 07:21] LABS: BLOOD UREA NITROGEN 19 MG/DL (9-23); CALCIUM LEVEL 8.4 MG/DL (8.3-10.6); CARBON DIOXIDE LEVEL 28 MMOL/L (20-31); CHLORIDE LEVEL 100 MMOL/L (98-107); CREATININE FOR GFR 0.51 MG/DL (0.55-1.30); GLOMERULAR FILTRATION RATE > 60.0 (>39); GLUCOSE, FASTING 100 MG/DL (74-106); MAGNESIUM LEVEL 1.8 MG/DL (1.8-2.4); POTASSIUM SERUM 4.1 MMOL/L (3.5-5.1); SODIUM LEVEL 135 MMOL/L (136-145)
[2022-08-29 10:32] VITALS: BP 154/100
[2022-08-29] MEDS: ramipriL 5 MG CAP GT SCH (10:32)
[2022-08-29] MEDS: METOPROLOL TART 25 MG TABLET PO SCH (10:32)
[2022-08-29] MEDS: CitaloPRAM (CeleXA) 10 MG TABLET GT SCH (10:33)
[2022-08-29] MEDS: BACLOFEN 10 MG TAB GT SCH (10:33)
[2022-08-29] MEDS: ASPIRIN 81MG CHEW TABLET GT SCH (10:33)
[2022-08-29] MEDS: CHLORTHALIDONE 25 MG TAB PO SCH (10:33)
[2022-08-29] MEDS: AUGMENTIN ES SUSP POWDER 600MG/5ML 125ML BTL PEG SCH (10:33)
[2022-08-29] MEDS ORDERED: HYDR10TAB PEG (10:58)
[2022-08-29] MEDS ORDERED: METO1TAB87 PO (10:58)
[2022-08-29] MEDS ORDERED: RISATAB3 PEG (10:58)
[2022-08-29] MEDS ORDERED: AMLO1TAB24 PEG (10:58)
== END 2022-08-29 13:10 | DRG 208 ==
LOC: M ED 02:57 → M ED INP 06:15 → ENRESERV 06:41 → M ICU 07:42 → M MS5PR 08-28 17:22
PROVIDERS: ADMIT Internal Medicine; ATTEND Internal Medicine
PROC: 02HV33Z Insertion of Infusion Device into Superior Vena Cava, Percutaneous Approach (ICD-10-PCS; 2022-08-23)
PROC: 0BH18EZ Insertion of Endotracheal Airway into Trachea, Via Natural or Artificial Opening Endoscopic (ICD-10-PCS; 2022-08-23)
PROC: 0B9F8ZZ Drainage of Right Lower Lung Lobe, Via Natural or Artificial Opening Endoscopic (ICD-10-PCS; 2022-08-23)
PROC: 3E0F8GC Introduction of Other Therapeutic Substance into Respiratory Tract, Via Natural or Artificial Opening Endoscopic (ICD-10-PCS; 2022-08-23)
PROC: 5A1945Z Respiratory Ventilation, 24-96 Consecutive Hours (ICD-10-PCS; principal; 2022-08-23 15:00)
DX: J96.01 Acute respiratory failure with hypoxia (principal); J69.0 Pneumonitis due to inhalation of food and vomit; J15.3 Pneumonia due to streptococcus, group B; E87.20 Acidosis, unspecified; I69.351 Hemiplegia and hemiparesis following cerebral infarction affecting right dominant side; E78.00 Pure hypercholesterolemia, unspecified; E03.9 Hypothyroidism, unspecified; B95.1 Streptococcus, group B, as the cause of diseases classified elsewhere; I16.0 Hypertensive urgency; I69.321 Dysphasia following cerebral infarction; I10 Essential (primary) hypertension; I69.320 Aphasia following cerebral infarction; R04.0 Epistaxis; Z79.82 Long term (current) use of aspirin; Z79.890 Hormone replacement therapy; Z79.899 Other long term (current) drug therapy; Z20.822 Contact with and (suspected) exposure to COVID-19